=== PATIENT | female | born 1955 | race Caucasian/White ===

== ENCOUNTER → 2018-01-13 09:43 | Outpatient (CLI) | payer OTHER, SELFPAY ==
[2018-01-13 11:12] LABS: Thyroid Stimulating Hormone 0.58 uIU/ml (0.358-3.740)
== END ==
PROVIDERS: Visit Provider Internal Medicine
DX: E03.9 Hypothyroidism, unspecified (principal)
CPT/HCPCS: 36415; 84443

== ENCOUNTER → 2021-06-19 11:22 | Outpatient (CLI) | payer MEDICARE, OTHER, SELFPAY ==
--- NOTE | 2021-06-19 11:35 | XR_ITS ---
PROCEDURE: XR FOOT LT MIN 3V CLINICAL INDICATION: LT FOOT PAIN COMPARISON: No exams were available for comparison FINDINGS: There is a healing fracture involving the midshaft of the proximal phalanx of 4th toe with callus formation noted. There is good alignment. The joint spaces are well-preserved. No significant degenerative/arthritic changes. No erosive changes evident. Other findings:None. IMPRESSION: Healing fracture of the proximal phalanx of the 4th toe Dictated by: Shad Tafoya MD 06/19/2021 12:13 Shad Tafoya MD in [place] 06/19/2021 12:13
--- NOTE | 2021-06-19 11:35 | XR_ITS ---
PROCEDURE: XR CERVICAL SPINE 5V CLINICAL INDICATION: R NECK PAIN COMPARISON: No exams were available for comparison FINDINGS: Normal alignment. Degenerative disc disease C5-C6 and C6-C7. No fracture or dislocation. Mild foraminal narrowing is present on the right at C5-C6 and C6-C7 and on the left at C5-C6 and C6-C7. Facet hypertrophic changes are present at C4-C5 and C6. No evidence of cervical rib. No lytic or blastic change. Other findings:None. IMPRESSION: Degenerative changes as described above Dictated by: Shad Tafoya MD 06/19/2021 12:08 Shad Tafoya MD in OV 06/19/2021 12:08
--- NOTE | 2021-06-19 11:35 | XR_ITS ---
PROCEDURE: XR ANKLE LT MIN 3V CLINICAL INDICATION: LT ANKLE PAIN/SWELLING COMPARISON: No exams were available for comparison FINDINGS: No fracture or dislocation. No lytic or blastic change. There is normal mineralization. The joint spaces are well-preserved. No significant degenerative/arthritic changes. No erosive changes evident. Other findings:None. IMPRESSION: No acute findings. Dictated by: Shad Tafoya MD 06/19/2021 12:13 Shad Tafoya MD in [facility] 06/19/2021 12:13
== END ==
PROVIDERS: PCP Internal Medicine; Visit Provider Internal Medicine
DX: M54.2 Cervicalgia (principal); M25.572 Pain in left ankle and joints of left foot; M79.672 Pain in left foot
CPT/HCPCS: 72050; 73610; 73630

== ENCOUNTER → 2021-07-12 13:28 | Outpatient (CLI) | payer MEDICARE, OTHER, SELFPAY ==
--- NOTE | 2021-07-12 13:31 | MR_ITS ---
PROCEDURE INFORMATION: Exam: MR Head Without Contrast Exam date and time: 07/12/2021 1:31 PM Age: 66 years old Clinical indication: Pain; Headache; Additional info: Right sided neck pain and headaches. HX breast cancer been in remission since 2005. RT sided neck pain and headache. V7dlkkg. Dizziness. No prior. TECHNIQUE: Imaging protocol: MR of the head without contrast. COMPARISON: CR XR CERVICAL SPINE 5V 06/19/2021 11:38 AM FINDINGS: Brain: There is a oval dural-based isointense mass in the anterior right middle cranial fossa measuring 2.6 x 1.2 x 2.2 cm. The mass demonstrates mild mass effect on the right anterior temporal lobe. There is no midline shift. Scattered punctate T2 hyperintense white matter foci typical of chronic white matter microvascular disease. No significant cerebral volume loss. No acute infarction. Cerebral ventricles: Normal. No ventriculomegaly. Bones/joints: Unremarkable. Paranasal sinuses: Normal as visualized. No acute sinusitis. Mastoid air cells: Normal as visualized. No mastoid effusion. Soft tissues: Unremarkable. IMPRESSION: 1. Dural-based extra-axial mass in the right middle cranial fossa typical of a meningioma. Mild mass effect on the right anterior temporal lobe without parenchymal changes or midline shift. 2. No other acute findings. No other mass or infarction.
== END ==
PROVIDERS: PCP Internal Medicine; Visit Provider Internal Medicine
DX: M54.2 Cervicalgia (principal); R51.9 Headache, unspecified
CPT/HCPCS: 70551

== ENCOUNTER → 2021-09-23 15:16 | Outpatient (CLI) | payer MEDICARE, OTHER, SELFPAY | PROVIDERS: PCP Internal Medicine; Visit Provider Internal Medicine | DX: Z20.822 Contact with and (suspected) exposure to COVID-19 (principal) | CPT/HCPCS: C9803; U0003; U0005 ==

== ENCOUNTER → 2022-08-13 12:43 | Outpatient (CLI) | payer MEDICARE, OTHER, SELFPAY ==
[2022-08-13 14:45] LABS: Chloride 101 mmol/L (98-107); Sodium 139 mmol/L (136-145)
[2022-08-13 14:46] LABS: Potassium 4.5 mmoL/L (3.5-5.1)
[2022-08-13 14:48] LABS: Alanine Aminotransferase 32 U/L (12-78); Albumin Level 4.7 g/dl (3.5-5.0); Albumin/Globulin Ratio 1.6 (1.1-1.8); Alkaline Phosphatase 105 U/L (38-126); Anion Gap 16.5 mEq/L (5-15); Aspartate Amino Transferase 35 U/L (14-36); Bilirubin,Total 0.6 mg/dl (0.2-1.3); Blood Urea Nitrogen 9 mg/dl (7-17); Carbon Dioxide 26 mmol/L (22.0-30.0); Cholesterol 214 mg/dl (140-200); Estimated Glomerular Filt Rate 122 ml/min (>60); GFR (African American) 148 ML/MIN (>60); Globulin 2.9 g/dL (1.3-3.2); Total Protein,Serum 7.6 g/dl (6.3-8.2); Triglycerides 103 mg/dl (30-150); VLDL Cholesterol 21 mg/dL (0-40)
[2022-08-13 14:49] LABS: Calcium 11.5 mg/dl (8.4-10.2); Chol/HDL Ratio 4.4 (1-3.5); Glucose 107 mg/dl (74-100); HDL Cholesterol 49 mg/dl (40-60)
[2022-08-13 15:00] LABS: Direct LDL Cholesterol 127.33 mg/dL (100-129)
[2022-08-13 15:17] LABS: Thyroid Stimulating Hormone 4.64 uIU/mL (0.465-4.68)
[2022-08-13 15:41] LABS: Basophils # 0.1 K/mm3 (0-0.2); Basophils % 1.2 % (0.1-2.0); Eosinophils # 0.2 K/mm3 (0.0-0.4); Eosinophils % 2.2 % (0.1-12.0); Hematocrit 45.3 % (37.0-47.0); Hemoglobin 14.7 g/dL (12.2-16.2); Lymphocytes # 2.7 K/mm3 (0.7-4.5); Lymphocytes % 30.2 % (10-50); Mean Corpuscular HGB Conc 32.5 g/dL (31.8-35.4); Mean Corpuscular Hemoglobin 28.9 pg (27.0-31.2); Mean Corpuscular Volume 89.1 fl (81-99); Monocytes # 0.5 K/mm3 (0.1-1.0); Monocytes % 5.2 % (1.7-9.3); Neutrophils # 5.5 K/mm3 (1.8-7.8); Neutrophils % 61.3 % (37.0-80.0); Platelet Count 347 K/mm3 (142-424); Red Blood Count 5.09 M/mm3 (4.20-5.40); Red Cell Distribution Width 13.3 % (11.5-17.5)
== END ==
PROVIDERS: PCP Internal Medicine; Visit Provider Internal Medicine
DX: E03.9 Hypothyroidism, unspecified (principal); E78.5 Hyperlipidemia, unspecified; K21.9 Gastro-esophageal reflux disease without esophagitis; Z85.3 Personal history of malignant neoplasm of breast
CPT/HCPCS: 80053; 80061; 84443; 85025

== ENCOUNTER → 2022-08-26 08:00 | Outpatient (CLI) | payer MEDICARE, OTHER, SELFPAY ==
[2022-08-26 09:25] LABS: Chloride 100 mmol/L (98-107); Potassium 4.8 mmoL/L (3.5-5.1); Sodium 137 mmol/L (136-145)
[2022-08-26 09:28] LABS: Blood Urea Nitrogen 12 mg/dl (7-17); Estimated Glomerular Filt Rate 122 ml/min (>60); GFR (African American) 148 ML/MIN (>60)
[2022-08-26 09:29] LABS: Calcium 11.2 mg/dl (8.4-10.2); Glucose 138 mg/dl (74-100)
[2022-08-26 14:53] LABS: Anion Gap 15.8 mEq/L (5-15); Carbon Dioxide 26 mmol/L (22.0-30.0)
== END ==
PROVIDERS: PCP Internal Medicine; Visit Provider Internal Medicine
DX: E87.5 Hyperkalemia (principal)
CPT/HCPCS: 36415; 80048

== ENCOUNTER → 2022-09-05 11:39 | Outpatient (CLI) | payer MEDICARE, OTHER, SELFPAY ==
[2022-09-05 13:36] LABS: Phosphorous 3.1 mg/dl (2.5-4.5)
[2022-09-05 13:48] LABS: Intact Parathyroid Hormone 149.2 pg/mL (7.5-53.5)
== END ==
PROVIDERS: PCP Internal Medicine; Visit Provider Internal Medicine
DX: E83.51 Hypocalcemia (principal); Z85.3 Personal history of malignant neoplasm of breast
CPT/HCPCS: 36415; 82306; 83970; 84100

== ENCOUNTER → 2022-11-27 08:03 | Outpatient (CLI) | payer MEDICARE, OTHER, SELFPAY ==
[2022-11-27 09:15] LABS: Calcium 10.3 mg/dl (8.4-10.2); Phosphorous 3.5 mg/dl (2.5-4.5)
[2022-11-27 09:30] LABS: Intact Parathyroid Hormone 121.7 pg/mL (7.5-53.5)
== END ==
PROVIDERS: PCP Internal Medicine; Visit Provider Internal Medicine
DX: E21.3 Hyperparathyroidism, unspecified (principal); E55.9 Vitamin D deficiency, unspecified
CPT/HCPCS: 36415; 82306; 82310; 83970; 84100

== ENCOUNTER → 2022-12-04 09:11 | Outpatient (CLI) | payer MEDICARE, OTHER, SELFPAY ==
--- NOTE | 2022-12-04 09:15 | XR_ITS ---
FINAL REPORT TECHNIQUE: Bone densitometry calculations of the lumbar spine and right hip were obtained. CLINICAL HISTORY: .post menopausal FINDINGS: DEXA BONE DENSITY AXIAL SKELETON Using L1-4, the bone mineral density of the spine is a 0.836 g/cm2, corresponding to T-score of -1.9 with a Z-score of 0.1. Using the right hip, the bone mineral density of the femoral neck is 0.645 g/cm2, corresponding to a T-score of -1.8 with a Z-score of -0.1. NOTE: T-score: Standard deviation compared with peak bone mass of young adult mean. *Following the recommendations of the International Society of Bone densitometry, classification of hip BMD is based on the lower of two T-scores; total hip or femoral neck. IMPRESSION: Diminished bone mineral density of the lumbar spine and left hip consistent with osteopenia. FRAX 10 year fracture risk is 1.7% for a hip fracture and 10% for a major osteoporotic fracture. Reviewed, Interpreted and Dictated by Margareth Gaines MD Transcribed by Olamide Little Authenticated and [facility]
== END ==
PROVIDERS: PCP Internal Medicine; Visit Provider Internal Medicine
DX: M81.0 Age-related osteoporosis without current pathological fracture (principal)
CPT/HCPCS: 77080

== ENCOUNTER → 2023-05-12 08:05 | Outpatient (CLI) | payer MEDICARE, OTHER, SELFPAY ==
[2023-05-12 08:24] LABS: Basophils # 0.1 K/mm3 (0-0.2); Eosinophils # 0.3 K/mm3 (0.0-0.4); Hematocrit 44.4 % (37.0-47.0); Hemoglobin 14.5 g/dL (12.2-16.2); Lymphocytes # 2.6 K/mm3 (0.7-4.5); Lymphocytes % 31.8 % (10-50); Mean Corpuscular HGB Conc 32.7 g/dL (31.8-35.4); Mean Corpuscular Hemoglobin 28.1 pg (27.0-31.2); Mean Corpuscular Volume 85.9 fl (81-99); Mean Platelet Volume 8.1 fl (7.4-10.4); Monocytes # 0.4 K/mm3 (0.1-1.0); Monocytes % 5.2 % (1.7-9.3); Neutrophils # 4.8 K/mm3 (1.8-7.8); Platelet Count 315 K/mm3 (142-424); Red Blood Count 5.16 M/mm3 (4.20-5.40); Red Cell Distribution Width 13.5 % (11.5-17.5); White Blood Count 8.2 K/mm3 (4.8-10.8)
[2023-05-12 09:54] LABS: Alanine Aminotransferase 36 U/L (12-78); Albumin Level 4.5 g/dl (3.5-5.0); Albumin/Globulin Ratio 1.5 (1.1-1.8); Alkaline Phosphatase 91 U/L (38-126); Anion Gap 13.7 mEq/L (5-15); Aspartate Amino Transferase 32 U/L (14-36); Bilirubin,Total 0.6 mg/dl (0.2-1.3); Blood Urea Nitrogen 11 mg/dl (7-17); Calcium 10.7 mg/dl (8.4-10.2); Carbon Dioxide 26 mmol/L (22.0-30.0); Chloride 105 mmol/L (98-107); Chol/HDL Ratio 4.1 (1-3.5); Cholesterol 198 mg/dl (140-200); Estimated Glomerular Filt Rate 99 ml/min (>60); GFR (African American) 120 ML/MIN (>60); Globulin 3.1 g/dL (1.3-3.2); Glucose 142 mg/dl (74-100); HDL Cholesterol 48 mg/dl (40-60); Potassium 4.7 mmoL/L (3.5-5.1); Sodium 140 mmol/L (136-145); Total Protein,Serum 7.6 g/dl (6.3-8.2); Triglycerides 117 mg/dl (30-150); VLDL Cholesterol 23 mg/dL (0-40)
[2023-05-12 10:05] LABS: Direct LDL Cholesterol 112.37 mg/dL (100-129); Intact Parathyroid Hormone 72.9 pg/mL (7.5-53.5)
[2023-05-12 10:24] LABS: Thyroid Stimulating Hormone 3.35 uIU/mL (0.465-4.68)
== END ==
PROVIDERS: PCP Internal Medicine; Visit Provider Internal Medicine
DX: E03.9 Hypothyroidism, unspecified (principal); E55.9 Vitamin D deficiency, unspecified; M85.89 Other specified disorders of bone density and structure, multiple sites
CPT/HCPCS: 36415; 80053; 80061; 82306; 83970; 84443; 85025

== ENCOUNTER → 2023-08-24 08:18 | Outpatient (CLI) | payer MEDICARE, OTHER, SELFPAY ==
[2023-08-24 14:21] LABS: Collection Time,Urine 24 hours; Total Volume,Urine 1100 mL (250-2400)
[2023-08-24 15:20] LABS: Creatinine 24 Hour,Urine 1287 mg/24hr (630-2500)
[2023-08-24 15:27] LABS: Creatinine,Urine Random 117 mg/dL (Not Estab.)
[2023-08-25 11:20] LABS: Calcium, Urine 39.3 mg/dL (Not Estab.); Calcium, Urine 24hr 452 mg/24 hr (0-320)
== END ==
PROVIDERS: PCP Internal Medicine; Visit Provider Nurse Practitioner Family
DX: E21.0 Primary hyperparathyroidism (principal)
CPT/HCPCS: 82340; 82570

== ENCOUNTER 2023-12-24 08:09 | Outpatient (CLI) | payer MEDICARE, OTHER, SELFPAY ==
[2023-12-24 09:10] LABS: Anion Gap 13.6 mEq/L (5-15); Blood Urea Nitrogen 12 mg/dl (7-17); Calcium 10.6 mg/dl (8.4-10.2); Carbon Dioxide 26 mmol/L (22.0-30.0); Chloride 103 mmol/L (98-107); Estimated Glomerular Filt Rate 99 ml/min (>60); GFR (African American) 120 ML/MIN (>60); Glucose 153 mg/dl (74-100); Potassium 4.6 mmoL/L (3.5-5.1); Sodium 138 mmol/L (136-145)
[2023-12-24 09:21] LABS: Intact Parathyroid Hormone 149.6 pg/mL (7.5-53.5)
[2023-12-24 09:27] LABS: 25-OH Vitamin D, Total 62.2 ng/mL (30-100)
== END 2023-12-24 23:59 ==
LOC: LAB 08:12
PROVIDERS: PCP Internal Medicine; Visit Provider Nurse Practitioner Family
DX: E21.0 Primary hyperparathyroidism (principal)
CPT/HCPCS: 36415; 80048; 82306; 83970

== ENCOUNTER 2024-03-04 12:18 | Outpatient (CLI) | payer MEDICARE, OTHER, SELFPAY ==
[2024-03-04 13:57] LABS: Calcium 10.5 mg/dl (8.4-10.2)
[2024-03-04 14:07] LABS: Intact Parathyroid Hormone 97.2 pg/mL (7.5-53.5)
== END 2024-03-04 23:59 | disposition home or self-care (01) ==
LOC: LAB 12:19
PROVIDERS: PCP Internal Medicine; Visit Provider Otolaryngology
DX: E21.0 Primary hyperparathyroidism (principal)
CPT/HCPCS: 36415; 82310; 83970

== ENCOUNTER 2024-04-25 09:05 | Outpatient (CLI) | payer MEDICARE, OTHER, SELFPAY ==
--- NOTE | 2024-04-25 09:06 | XR_ITS ---
FINAL REPORT CLINICAL HISTORY: POST-MENOPAUSAL COMPARISON: 12/04/2022 FINDINGS: Using L1-4, the bone mineral density of the spine is 0.782 g/cm2, corresponding to T-score of -2.4 which is consistent with osteopenia. Previously this was 0.836 with T-score of -1.9. Using the left hip, the bone mineral density of the femoral neck is 0.850 g/cm2, corresponding to a T-score of -0.8 which is within normal limits. Previously this was 0.757 with T-score of -1.5. Using the right hip, the bone mineral density of the femoral neck is 0.669 g/cm2, corresponding to a T-score of -1.6 which is consistent with osteopenia. Previously this was 0.645 with a T-score of -1.8. FRAX 10 year fracture risk is 1.5% for a hip fracture and 9.9% for a major osteoporotic fracture. NOTE: T-score: Standard deviation compared with peak bone mass of young adult mean. *Following the recommendations of the International Society of Bone densitometry, classification of hip BMD is based on the lower of two T-scores; total hip or femoral neck. IMPRESSION: Diminished bone mineral density consistent with osteopenia with some interval bone loss. Reviewed, Interpreted and Dictated by Arcadio Walker MD Transcribed by Sandee Julien Authenticated and [facility]
== END 2024-04-25 23:59 | disposition home or self-care (01) ==
LOC: RAD 09:06
PROVIDERS: PCP Internal Medicine; Visit Provider Internal Medicine
DX: Z78.0 Asymptomatic menopausal state (principal)
CPT/HCPCS: 77080

== ENCOUNTER 2024-05-02 10:23 | Emergency (ER) | payer MEDICARE, OTHER, SELFPAY ==
--- NOTE | 2024-05-02 10:28 | ECG_ITS ---
APPROVED REPORT Exam: Resting ECG HR:73 bpm ECG Measurements Heart Rate 73 AXES IA 170 P 59 QRSd 86 QRS 26 QT 362 T 68 QTc 387 Conclusion SINUS RHYTHM WITH OCCASIONAL VENTRICULAR PREMATURE COMPLEXES BORDERLINE ECG Electronically signed by : JERRICA HESS, 05/03/2024 07:16:24
[2024-05-02 10:29] VITALS: BP 145/78; PULSE 81; O2SAT 98
[2024-05-02 10:31] VITALS: BP 145/78; PULSE 74; RESP 20; TEMP 36.6; O2SAT 99; BMI 29.7
--- NOTE | 2024-05-02 10:53 | XR_ITS ---
FINAL REPORT TECHNIQUE: Single view chest CLINICAL HISTORY: palpitations FINDINGS: A single view of the chest was obtained. The heart and mediastinum are within normal limits. The lungs are clear. There is no pneumothorax. Osseous structures are unremarkable. IMPRESSION: No acute cardiopulmonary process. Reviewed, Interpreted and Dictated by Margareth Gaines MD Transcribed by Joan Alston Authenticated and [facility]
--- NOTE | 2024-05-02 10:53 | HMH.EDGENADL ---
Discharge Plan Disposition Patient Disposition: Home, Self-Care Chief Complaint: Arrhythmia/Palpitations Referrals Follow up/Referrals: Nito Lr MD [Primary Care Provider] - See instructions Activity Restrictions/Add. Instructions Additional Instructions/Restrictions: Follow-up with your tubular stock glass bulb machine former regarding this visit to the emergency department. Parathyroid hormone today was elevated 92.5 with upper limit of normal being 53.5. Calcium 10.7. Call your family doctor to establish care for this visit to the emergency department and schedule follow-up within 48 hours to ensure improvement. If you have any worsening of your condition or any other concerning signs or symptoms, return to the emergency department or your primary care doctor for further evaluation. Clinical Impressions Clinical Impression: Palpitations, Hyperparathyroidism, Hypercalcemia Print Language Print Language: Ukrainian Discharge ED Provider: Adolfo Deluca General Adult HPI General Chief complaint: Arrhythmia/Palpitations Stated complaint: fluttering in chest poss high bp N/V BELTRÁN Time Seen by Provider: 05/02/24 10:38 Mode of Arrival: Ambulatory Source of Information: Patient Limitations: No Limitations Description of Symptoms (Recalled from ER Triage Doc. by RN): pt to ed c/o chest fluttering. pt states this has been ongoing for several days. pt denies chest pain or discomfort. History of Present Illness HPI narrative: Please note that above description of symptoms, in this electronic medical record under categorization of recalled from ER triage doctor by RN are reflective of an initial nursing assessment, however, is not reflective of my full history and physical exam that was personally taken and clarified. Consequentially, this preceding description of symptoms, which may include the patient's categorized chief complaint in the EMR, do not reflect my personal clinical impression, and the ultimate description of history of present illness and patient stated complaints should be deferred to this section of the note. Unless stated otherwise or congruent with this section of the note, additional signs, symptoms, or incongruence should be interpreted as inaccurate with my clinical impression. Related Data Allergies Allergy/AdvReac Type Severity Reaction Status Date / Time No Known Allergies Allergy Unverified 09/22/17 14:31 [facility] Disclaimer: The information contained in this section may have been updated after the patient was seen, as this information can be updated by other users. Social History Smoking Status: Never smoker alcohol intake: never current occupational status: retired Travel in the last 8 weeks: None ROS Obtained: Yes All systems reviewed & no additional complaints except as documented Physical Exam General General appearance: alert and anxious Head Head exam: atraumatic and normocephalic Eye Eye exam: Present normal appearance, PERRL and EOMI Neck Neck exam: Present normal inspection, full ROM and trachea midline Respiratory Respiratory exam: Present normal lung sounds bilaterally; Absent respiratory distress, wheezes, stridor, accessory muscle use or prolonged expiratory phase Cardiovascular Cardiovascular exam: Present regular rate, normal rhythm (Intermittent PVCs) and other (Pulses equal symmetric in upper and lower extremities) Abdominal Exam Abdominal exam: Present soft; Absent distention, tenderness or pulsatile mass Extremities Exam Extremities exam: Absent edema Neurological Exam Neurological exam: Present alert, oriented X3 and CN II-XII intact; Absent motor sensory deficit Skin Skin exam: Present warm and dry; Absent diaphoresis or erythema Medical Decision Making Medical Records Medical records reviewed: Yes I reviewed the patient's medical records. Issa Inquiry Pt receiving controlled substance: No Issa was queried for this patient: No Vital Signs: 05/02/24 10:29 05/02/24 10:31 05/02/24 11:00 Temperature 97.9 F Temperature Source Oral Pulse Rate 81 76 Pulse Rate [Left Radial] 74 Respiratory Rate 20 13 Blood Pressure 145/78 H 152/82 H Blood Pressure [Right Arm] 145/78 H Blood Pressure Mean [Right Arm] 100 02 Sat by Pulse Oximetry 98 99 96 Oxygen Delivery Method Room Air Room Air Room Air 05/02/24 11:30 Temperature Temperature Source Pulse Rate 82 Pulse Rate [Left Radial] Respiratory Rate 13 Blood Pressure 161/86 H Blood Pressure [Right Arm] Blood Pressure Mean [Right Arm] 02 Sat by Pulse Oximetry 96 Oxygen Delivery Method Room Air Lab Data Lab Results 05/02/24 10:35: WBC 9.5, RBC 4.79, Hgb 14.2, Hct 43.6, MCV 91.1, MCH 29.7, MCHC 32.6, RDW 13.7, Plt Count 315, MPV 8.2, Neut % (Auto) 65.5, Lymph % (Auto) 26.9, Vance % (Auto) 3.9, Eos % (Auto) 2.8, Baso % (Auto) 0.9, Neut # (Auto) 6.2, Lymph # (Auto) 2.6, Vance # (Auto) 0.4, Eos # (Auto) 0.3, Baso # (Auto) 0.1, Sodium 138, Potassium 3.9, Chloride 105, Carbon Dioxide 26, Anion Gap 10.9, BUN 11, Creatinine 0.50 L, Estimated Creat Clear 69, Estimated GFR 122, Est GFR ( Amer) 148, Glucose 148 H, Calcium 10.7 H, Magnesium 2.1, Total Bilirubin 0.6, AST 37 H, ALT 38, Alkaline Phosphatase 79, Troponin I < 0.01, NT-Pro-B Natriuret Pep < 20.0, Total Protein 8.0, Albumin 4.4, Globulin 3.6 H, Albumin/Globulin Ratio 1.2, PTH Intact 92.5 H 05/02/24 10:35 05/02/24 10:35 Orders (Tests/Meds): ORDERS Category Date Time Status XR chest portable Stat Exams 05/02/24 10:53 Completed Complete Blood Count Auto Diff Stat Lab 05/02/24 10:35 Completed Comprehensive Metabolic Panel Stat Lab 05/02/24 10:35 Results Intact Parathyroid Hormone Stat Lab 05/02/24 10:35 Results Magnesium Stat Lab 05/02/24 10:35 Completed NT Pro Brain Natriuretic Pep. Stat Lab 05/02/24 10:35 Completed T4 (Thyroxine) Stat Lab 05/02/24 10:35 Results TSH [Thyroid Stimulating Hormone] Stat Lab 05/02/24 10:35 Results Troponin I Q3H Lab 05/02/24 14:00 Ordered Troponin I Q3H Lab 05/02/24 17:00 Ordered Troponin I Stat Lab 05/02/24 10:35 Results Medical Decision Narrative: This is a 68-year-old female history of hyperparathyroidism status post partial parathyroidectomy presenting with palpitations. Patient states that she was told that she has a shadow of signal, concerning for parathyroid in her chest. This was months ago after receiving scan following with endocrinology and surgical oncology. Was lost to follow-up and she had been putting off appointments. States that yesterday, 05/01, started feeling intermittent palpitations. Made better with aspirin 81 mg. Into today still having palpitations. Denies any overt chest pain, radiation, shortness of breath, vomiting. No neurologic deficits. Is concerned it may be related to the adenoma, so came for further evaluation. Patient does drink coffee in the morning. History was obtained via conversation with patient. On arrival, patient hemodynamically stable, alert, oriented x4, appropriate, GCS 15, moving all extremities spontaneously, pupils equal and reactive to light. Full physical exam performed and significant for anxious appearing female who is in no acute distress. Normotensive, nontachycardic, speaking full sentences. Lungs are clear to auscultation anterior and posterior bilaterally. Cardiac exam with no murmurs, gallops, or rubs, normal S1-S2, normal and symmetric pulses in upper and lower extremities. No evidence of stridor or bruit in the neck. Differential includes PVC, arrhythmia, metabolic abnormality, endocrinologic abnormality, ACS, AK, among others. Patient placed on continuous cardiac monitoring and continuous pulse ox with initial blood pressure 145/70, heart rate 74, saturation 99% on room air. Independent interpretation of EKG shows sinus rhythm 73 beats a minute. No ischemic change. No PVCs captured on this, but captured on monitor during encounter with patient. NM 170, QRS 86, QTc 387, axis normal. Independent interpretation of workup demonstrates nonactionable CBC or chemistry. LFTs nonactionable. Magnesium normal, troponin negative, BNP negative. Patient calcium is slightly elevated at 10.7, this is chronic for patient. Her PTH was elevated today at 92.5, which is to be about her baseline as well. Intermittent interpretation of imaging demonstrates normal chest x-ray without acute abnormality in the heart or lungs. See radiology read for full review of final results. Given patient's history, hyperparathyroidism, hypercalcemia, I feel this is likely arrhythmia in the setting of hypercalcemia. Recommended she follow-up with her tubular stock glass bulb machine former, she voiced understanding. Because patient at baseline without signs or symptoms of clinical decompensation, deemed appropriate for discharge. Results were relayed to patient who voiced understanding and were agreeable to outpatient management and follow up. I discussed my clinical impression with patient and answered all questions. At this time, the evidence for any other entities in the differential is insufficient to warrant any further testing or ED observation. This was explained as well. Advisory was given that persistent or worsening symptoms require further evaluation. I confirmed the understanding of this discussion. Electromechanical Assembler disclaimer Much of this encounter note is an electronic senior tax specialist spoken language to printed text. Electronic senior tax specialist of the spoken language may permit errors. Although I have reviewed the note, some errors may still exist. Critical Care Critical Care Time Critical Care Time: No
[2024-05-02 11:00] VITALS: BP 152/82; PULSE 76; RESP 13; O2SAT 96
[2024-05-02 11:03] LABS: Basophils # 0.1 K/mm3 (0-0.2); Basophils % 0.9 % (0.1-2.0); Eosinophils # 0.3 K/mm3 (0.0-0.4); Eosinophils % 2.8 % (0.1-12.0); Hematocrit 43.6 % (37.0-47.0); Hemoglobin 14.2 g/dL (12.2-16.2); Lymphocytes # 2.6 K/mm3 (0.7-4.5); Lymphocytes % 26.9 % (10-50); Mean Corpuscular HGB Conc 32.6 g/dL (31.8-35.4); Mean Corpuscular Hemoglobin 29.7 pg (27.0-31.2); Mean Corpuscular Volume 91.1 fl (81-99); Mean Platelet Volume 8.2 fl (7.4-10.4); Monocytes # 0.4 K/mm3 (0.1-1.0); Monocytes % 3.9 % (1.7-9.3); Neutrophils # 6.2 K/mm3 (1.8-7.8); Neutrophils % 65.5 % (37.0-80.0); Platelet Count 315 K/mm3 (142-424); Red Blood Count 4.79 M/mm3 (4.20-5.40); Red Cell Distribution Width 13.7 % (11.5-17.5); White Blood Count 9.5 K/mm3 (4.8-10.8)
[2024-05-02 11:23] LABS: Alanine Aminotransferase 38 U/L (12-78); Albumin Level 4.4 g/dl (3.5-5.0); Albumin/Globulin Ratio 1.2 (1.1-1.8); Alkaline Phosphatase 79 U/L (38-126); Anion Gap 10.9 mEq/L (5-15); Aspartate Amino Transferase 37 U/L (14-36); Bilirubin,Total 0.6 mg/dl (0.2-1.3); Blood Urea Nitrogen 11 mg/dl (7-17); Calcium 10.7 mg/dl (8.4-10.2); Carbon Dioxide 26 mmol/L (22.0-30.0); Chloride 105 mmol/L (98-107); Creatinine Clearance Estimated 69 mL/min (50-200); Estimated Glomerular Filt Rate 122 ml/min (>60); GFR (African American) 148 ML/MIN (>60); Globulin 3.6 g/dL (1.3-3.2); Glucose 148 mg/dl (74-100); Magnesium 2.1 mg/dl (1.6-2.3); Potassium 3.9 mmoL/L (3.5-5.1); Sodium 138 mmol/L (136-145)
[2024-05-02 11:30] VITALS: BP 161/86; PULSE 82; RESP 13; O2SAT 96
[2024-05-02 11:34] LABS: NT Pro Brain Natriuretic Pep. < 20.0 pg/mL (0-125)
[2024-05-02 11:36] LABS: Intact Parathyroid Hormone 92.5 pg/mL (7.5-53.5)
[2024-05-02 11:37] LABS: Troponin I < 0.01 ng/ml (0.00-0.034)
[2024-05-02 11:41] LABS: T4 (Thyroxine) 13.8 ug/dl (5.53-11.0)
[2024-05-02 11:54] LABS: Thyroid Stimulating Hormone 3.43 uIU/mL (0.465-4.68)
[2024-05-02] MEDS: ONDANSETRON 4MG/2ML VIAL 4 MG IV (12:09)
[2024-05-02 12:15] VITALS: BP 148/87; PULSE 76; RESP 19; TEMP 36.7
== END 2024-05-02 12:16 | disposition home or self-care (01) ==
PROVIDERS: Emergency Provider Emergency Medicine; PCP Internal Medicine
DX: R00.2 Palpitations (principal); E21.3 Hyperparathyroidism, unspecified; I49.3 Ventricular premature depolarization
CPT/HCPCS: 71045; 80053; 83735; 83880; 83970; 84436; 84443; 84484; 85025; 93005; 96374; 99284; J2405

== ENCOUNTER 2024-07-26 15:27 | Outpatient (CLI) | payer MEDICARE, OTHER, SELFPAY ==
[2024-07-26 14:25] LABS: Alanine Aminotransferase 37 U/L (12-78); Albumin Level 4.2 g/dl (3.5-5.0); Albumin/Globulin Ratio 1.5 (1.1-1.8); Alkaline Phosphatase 69 U/L (38-126); Anion Gap 12.4 mEq/L (5-15); Aspartate Amino Transferase 32 U/L (14-36); Bilirubin,Total 0.6 mg/dl (0.2-1.3); Blood Urea Nitrogen 13 mg/dl (7-17); Calcium 10.5 mg/dl (8.4-10.2); Carbon Dioxide 27 mmol/L (22.0-30.0); Chloride 103 mmol/L (98-107); Chol/HDL Ratio 4.1 (1-3.5); Cholesterol 199 mg/dl (140-200); Estimated Glomerular Filt Rate 122 ml/min (>60); GFR (African American) 147 ML/MIN (>60); Globulin 2.8 g/dL (1.3-3.2); Glucose 138 mg/dl (74-100); HDL Cholesterol 49 mg/dl (40-60); Potassium 4.4 mmoL/L (3.5-5.1); Sodium 138 mmol/L (136-145); Triglycerides 99 mg/dl (30-150); VLDL Cholesterol 20 mg/dL (0-40)
[2024-07-26 14:36] LABS: Direct LDL Cholesterol 123.93 mg/dL (100-129)
[2024-07-26 14:53] LABS: Thyroid Stimulating Hormone 2.66 uIU/mL (0.465-4.68)
[2024-07-26 16:20] LABS: Hemoglobin A1C 6.7 % (4.0-6.0)
== END 2024-07-26 23:59 | disposition home or self-care (01) ==
LOC: LAB.DROPOF 15:27
PROVIDERS: PCP Internal Medicine; Visit Provider Internal Medicine
DX: E83.52 Hypercalcemia (principal); E78.5 Hyperlipidemia, unspecified; R73.02 Impaired glucose tolerance (oral); E03.9 Hypothyroidism, unspecified
CPT/HCPCS: 80053; 80061; 83036; 84443

== ENCOUNTER 2025-01-05 10:00 | Outpatient (CLI) | payer MEDICARE, OTHER, SELFPAY ==
[2025-01-05 12:15] LABS: Hemoglobin A1C 6.6 % (4.0-6.0)
[2025-01-05 12:32] LABS: Alanine Aminotransferase 41 U/L (12-78); Albumin Level 4.5 g/dl (3.5-5.0); Albumin/Globulin Ratio 1.4 (1.1-1.8); Alkaline Phosphatase 88 U/L (38-126); Anion Gap 16.5 mEq/L (5-15); Aspartate Amino Transferase 36 U/L (14-36); Bilirubin,Total 0.6 mg/dl (0.2-1.3); Blood Urea Nitrogen 8 mg/dl (7-17); Calcium 10.8 mg/dl (8.4-10.2); Carbon Dioxide 25 mmol/L (22.0-30.0); Chloride 102 mmol/L (98-107); Chol/HDL Ratio 3.5 (1-3.5); Cholesterol 183 mg/dl (140-200); Estimated Glomerular Filt Rate 122 ml/min (>60); GFR (African American) 147 ML/MIN (>60); Globulin 3.2 g/dL (1.3-3.2); Glucose 130 mg/dl (74-100); HDL Cholesterol 52 mg/dl (40-60); Potassium 4.5 mmoL/L (3.5-5.1); Sodium 139 mmol/L (136-145); Total Protein,Serum 7.7 g/dl (6.3-8.2); Triglycerides 98 mg/dl (30-150); VLDL Cholesterol 20 mg/dL (0-40)
[2025-01-05 12:42] LABS: Direct LDL Cholesterol 124.41 mg/dL (100-129)
[2025-01-05 12:43] LABS: Intact Parathyroid Hormone 78.3 pg/mL (7.5-53.5)
[2025-01-05 13:01] LABS: Thyroid Stimulating Hormone 2.98 uIU/mL (0.465-4.68)
== END 2025-01-05 23:59 | disposition home or self-care (01) ==
LOC: LAB.DROPOF 01-06 10:08
PROVIDERS: PCP Internal Medicine; Visit Provider Internal Medicine
DX: E78.5 Hyperlipidemia, unspecified (principal); R73.02 Impaired glucose tolerance (oral); E21.3 Hyperparathyroidism, unspecified; E03.9 Hypothyroidism, unspecified
CPT/HCPCS: 80053; 80061; 83036; 83970; 84443

== ENCOUNTER 2025-04-04 15:25 | Outpatient (CLI) | payer MEDICARE, OTHER, SELFPAY ==
[2025-04-04 15:21] LABS: Albumin Level 4.6 g/dl (3.5-5.0); Chloride 98 mmol/L (98-107)
[2025-04-04 15:22] LABS: Potassium 4.8 mmoL/L (3.5-5.1); Sodium 138 mmol/L (136-145)
[2025-04-04 15:24] LABS: Alanine Aminotransferase 33 U/L (12-78); Albumin/Globulin Ratio 1.5 (1.1-1.8); Amylase 61 U/L (30-110); Anion Gap 16.8 mEq/L (5-15); Aspartate Amino Transferase 32 U/L (14-36); Blood Urea Nitrogen 9 mg/dl (7-17); Carbon Dioxide 28 mmol/L (22.0-30.0); Creatinine,Serum 0.60 mg/dl (0.52-1.04); Estimated Glomerular Filt Rate 99 ml/min (>60); GFR (African American) 119 ML/MIN (>60); Globulin 3.1 g/dL (1.3-3.2); Total Protein,Serum 7.7 g/dl (6.3-8.2)
[2025-04-04 15:25] LABS: Alkaline Phosphatase 86 U/L (38-126); Bilirubin,Total 0.5 mg/dl (0.2-1.3); Calcium 10.3 mg/dl (8.4-10.2); Glucose 122 mg/dl (74-100); Lipase 186 U/L (23-300)
--- OUTSIDE RECORDS SUMMARY | 2025-04-04 15:27 | XMS_ITS | Encounter Summary ---
Author Organization Healthcare Address [address] [place] [address] Care Team Providers Care Body Piercer Name Role Phone Shannon Wiley George HINOJOSA Primary Care Provider [phone] Nito Lr MD Primary Care Provider [phone] Isiah Graff DO Unavailable [phone] Encounter Details Date Type Department Care Team (Late st Contact Info) Description 10/17/2021 Orders Only External Location [address] [place] [address] Bryon Griffith MD [address] [place], [place] [id number] Social History Tobacco Use Types Packs/Day Years Used Date Smoking Tobacco: Never Assessed Comments Unknown Sex and Gender Information Value Date Recorded Sex Assigned at Not on file Legal Sex Female 6:06 PM EDT Gender Identity Not on file Sexual Orientation Not on file documented as of this encounter Plan of Treatment Upcoming Encounters Date Type Department Care Team (Late st Contact Info) Description 04/13/2025 10:40 AM EDT Appointment [facility] [address] [facility] [place] [address] 04/13/2025 1:00 PM EDT Office Visit [facility] [address] [facility], [address]nd [place] [address] Isiah Graff, DO [address] [phone] documented as of this encounter Procedures Procedure Name Priority Date/Time Associated Diagnosis Comments MR OUTSIDE IMAGES 10/17/2021 2:07 PM EST documented in this encounter Results * MR transfer of outside films (10/17/2021 2:07 PM EST) Anatomical Region Laterality Modality Magnetic Resonan ce 10/17/2021 2:07 PM EST Bryon Griffith MD IMG MRI PROCEDURES Final Resu lt documented in this encounter Visit Diagnoses Not on filedocumented in this encounter Care Teams Body Piercer Relationship Specialty Start Date End Date Shannon Wiley APRN [address] [place] [address] PCP - General 02/15/21 08/10/24 Nito Lr MD [address] [place] [address] [address] [place] [address] PCP - General 08/11/24 Isiah Graff DO [address] [phone] Surgeon Cardiothoracic Surgery 08/11/24 documented as of this encounter
--- OUTSIDE RECORDS SUMMARY | 2025-04-04 15:27 | XMS_ITS | Encounter Summary ---
Author Organization Healthcare Address [address] [place] [address] Care Team Providers Care Handy Man Name Role Phone SaurabhShannon APRN Primary Care Provider [phone] Nito Lr MD Primary Care Provider [phone] Isiah Graff DO Unavailable [phone] Encounter Details Date Type Department Care Team (Late st Contact Info) Description 07/10/2023 Orders Only External Location [address] [place] [phone] Provider, External Social History Tobacco Use Types Packs/Day Years [...] Info) Description 04/13/2025 10:40 AM EDT Appointment [facility] [address] [place] [address] 04/13/2025 1:00 PM EDT Office Visit [facility] [address] [facility], [address]nd [place] [phone] Isiah Graff, DO [address] [phone] documented as of this encounter Procedures Procedure Name Priority Date/Time Associated Diagnosis Comments US OUTSIDE IMAGES 07/10/2023 10:30 AM EDT documented in this encounter Results * US OUTSIDE IMAGES (07/10/2023 10:30 AM EDT) Anatomical Region Laterality Modality Ultrasound 07/10/2023 10:3 0 AM EDT us External Provider IMG US PROCEDURES Final Result documented in this encounter Visit Diagnoses Not on filedocumented in this encounter Care Teams Handy Man Relationship Specialty Start Date End Date Shannon Wiley, TRUSS MAKER [address] [place] [address] PCP - General 02/15/21 08/10/24 Nito Lr MD [address] [facility] [address] [place] [address] PCP - General 08/11/24 Isiah Graff DO [address] [address] Surgeon Cardiothoracic Surgery 08/11/24 documented as of this encounter
--- OUTSIDE RECORDS SUMMARY | 2025-04-04 15:27 | XMS_ITS | Encounter Summary ---
Author Organization Healthcare Address [address] [place] [address] Care Team Providers Care Gas Worker Name Role Phone SaurabhShannon APRN Primary Care Provider [phone] Nito Lr MD Primary Care Provider [phone] Isiah Graff DO Unavailable [phone] Encounter Details Date Type Department Care Team (Late st Contact Info) Description 07/21/2023 Orders Only External Location [address] [place] [phone] Provider, External Social History Tobacco Use Types [...] Info) Description 04/13/2025 10:40 AM EDT Appointment [facility] [address] [place] [address] 04/13/2025 1:00 PM EDT Office Visit [facility] [address] [facility], [address]nd [place] [phone] Isiah Graff, DO [address] [phone] documented as of this encounter Procedures Procedure Name Priority Date/Time Associated Diagnosis Comments NM OUTSIDE IMAGES 07/21/2023 12:41 PM EDT documented in this encounter Results * NM OUTSIDE IMAGES (07/21/2023 12:41 PM EDT) Anatomical Region Laterality Modality Nuclear Medicine 07/21/2023 12:4 1 PM EDT External Provider IMG NM PROCEDURES Final Result documented in this encounter Visit Diagnoses Not on filedocumented in this encounter Care Teams Gas Worker Relationship Specialty Start Date End Date Shannon Wiley, PICKLE SOLUTION MAKER [address] [place] [address] PCP - General 02/15/21 08/10/24 Nito Lr MD [address] [facility] [address] [place] [address] PCP - General 08/11/24 Isiah Graff DO [address] [phone] Surgeon Cardiothoracic Surgery 08/11/24 documented as of this encounter
--- OUTSIDE RECORDS SUMMARY | 2025-04-04 15:27 | XMS_ITS | Encounter Summary ---
Author Organization Healthcare Address [address] [place] [address] Care Team Providers Care Medical Record Librarians Teacher Name Role Phone Shannon Wiley George HINOJOSA Primary Care Provider [phone] Nito Lr MD Primary Care Provider [phone] Isiah Graff DO Unavailable [phone] Encounter Details Date Type Department Care Team (Late st Contact Info) Description 06/19/2023 Orders Only External Location [address] [place] [phone] Bryon Griffith MD [address] [place], [place] [phone] Social History Tobacco Use Types Packs/Day Years [...] Info) Description 04/13/2025 10:40 AM EDT Appointment [facility] [address] [facility] [place] [address] 04/13/2025 1:00 PM EDT Office Visit Pav [facility] [address] [facility], [address] [place] [address] Isiah Graff, DO [address] [phone] documented as of this encounter Procedures Procedure Name Priority Date/Time Associated Diagnosis Comments MR OUTSIDE IMAGES 06/19/2023 11:44 AM EDT documented in this encounter Results * MR transfer of outside films (06/19/2023 11:44 AM EDT) Anatomical Region Laterality Modality Magnetic Resonan ce 06/19/2023 11:4 4 AM EDT us Bryon Griffith MD IMG MRI PROCEDURES Final Resu lt documented in this encounter Visit Diagnoses Not on filedocumented in this encounter Care Teams Medical Record Librarians Teacher Relationship Specialty Start Date End Date Shannon Wiley APRN [address] [place] [address] PCP - General 02/15/21 08/10/24 Nito Lr MD [facility] [address] [place] [address] PCP - General 08/11/24 Isiah Graff DO [address] [address] Surgeon Cardiothoracic Surgery 08/11/24 documented as of this encounter
--- OUTSIDE RECORDS SUMMARY | 2025-04-04 15:27 | XMS_ITS | Encounter Summary ---
Author Organization [facility] Address [address] [place] [address] Care Team Providers Care Chain Repairer Name Role Phone Nito Lr MD Primary Care Provider [phone] Isiah Graff DO Unavailable [phone] Encounter Details Date Type Department Care Team ([facility] st Contact Info) Description 03/24/2025 Telephone Pav [facility] Head[facility] Neck & Respiratory [address] [place] [address] Isiah Graff, DO [address] [place] [address] Social History Tobacco Use Types Packs/Day Years Used Date Smoking Tobacco: Never Smokeless Tobacco: Never Alcohol Use Standard Drinks/Week Comments Never 0 (1 standard drink = 0.6 oz pur e alcohol) Humiliation, Afraid, Rape, and Kick questionnair e Answer Date Recorded Within the last year, have y ou been afraid of your partner or ex-partner? No 09/06/2024 Within the last year, have y ou been humiliated or emotionally abused in other ways by your partner or ex-partner? No Within the last year, have y ou been kicked, hit, slapped, or otherwise physically hurt by your partner or ex-partner? No 09/06/2024 Within the last year, have y ou been raped or forced to have any kind of sexual activity by your partner or ex-partner? No 09/06/2024 Hunger Vital Sign Answer Date Recorded Within the past 12 months, y ou worried that your food would run out before you got the money to buy more. Never true 09/06/20 24 Within the past 12 months, t he food you bought just didn't last and you didn't have money to get more. Never true 09/06/2024 PRAPARE - Transportation Answer Date Re corded In the past 12 months, has l ack of transportation kept you from medical appointments or from getting medications? No 12/2023 In the past 12 months, has l ack of transportation kept you from meetings, work, or from getting things needed for daily living? No 09/06/2024 Housing Stability Vital Sign Answer Cesario e Recorded In the last 12 months, was t here a time when you were not able to pay the mortgage or rent on time? No 09/06/2024 Number of Times Moved in the Last Year Not on fi le 09/06/2024 At any time in the past 12 m [facility], were you homeless or living in a senior care (including now)? No 09/06/2024 Utilities Answer Date Recorded In the past 12 months has th e [employer], gas, oil, or water [email or web address] threatened to shut off services in your home? No 09/06/2024 Comments Unknown Sex and Gender Information Value Date Recorded Sex Assigned at Not on file Legal Sex Female 6:06 PM EDT Gender Identity Not on file Sexual Orientation Not on file documented as of this encounter Miscellaneous Notes * Telephone Encounter - Sayra Yao RN - 03/27/2025 3:05 PM EDT RN discussed with pt that CT chest will still be needed and informed of new date/times of appts. Ptverbalized understanding and agreeable to plan. * Telephone Encounter - Sayra Yao RN - 03/27/2025 2:[address] abdomen is not sufficient, pt will need CT chest for surveillance purposes. * Telephone Encounter - Thais Sierra - 03/24/2025 10:10 AM EDT Patient Phone Message Reason for Call: Per pt call to [facility], pt wished to rs all appts including scans, pt had CT done at [facility] on abdomen Tuesday 03/20, asking if that will meet provider needs. 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 Pt concerned about radiation with back to back scans. Best contact number and optimal time of day to reach caller: [phone], okay to leave appt information, address concerns and answers to questions in VM at this # Note: Please do not reply to this message. Follow-up communication and further actions as a result of this message need to be communicated with the patient directly, if the patient is not active onMyChart. If the patient is active on MyChart, they will receive notification of the communication/outcome via moziy. documented in this encounter Plan of Treatment Upcoming Encounters Date Type Department Care Team (Late st Contact Info) Description 04/13/2025 10:40 AM EDT Appointment [facility] [address], [address] [place] [address] 04/13/2025 1:00 PM EDT Office Visit Pav CC Head, Neck & Respiratory [address] [facility], [address]nd [place] [address] Isiah Graff D, DO [address] [address] documented as of this encounter Visit Diagnoses Not on filedocumented in this encounter Additional Health Concerns Assessment Noted Time A fall risk assessment has been complete d for the patient 08/11/2024 10:01 AM EST A Body Mass Index follow-up plan has been documented for the patient 09/22/2024 8:12 PM EST documented as of this encounter Care Teams Chain Repairer Relationship Specialty Start Date End Date Nito Lr MD [address] [facility] [address] [place] [address] PCP - General 08/11/24 Isiah Graff DO [address] [address] Surgeon Cardiothoracic Surgery 08/11/24 documented as of this encounter
--- OUTSIDE RECORDS SUMMARY | 2025-04-04 15:27 | XMS_ITS | Clinical Summary ---
Author Organization [facility] Address [address] [place] [address] Care Team Providers Care Switchboard Operator Helper Name Role Phone Nito Lr MD Primary Care Provider [phone] Isiah Graff DO Unavailable [phone] Allergies No known active allergies Medications famotidine (Pepcid) 20 MG tablet Take 1 tablet (20 mg) by mouth every night. Active levothyroxine (Synthroid, Levoxyl) 75 MCG tablet Take 1 tablet (75 mcg) by mouth 1 (one) time each day. 06/01/2024 Active cholecalciferol (Vitamin D-3) 50 MCG (1999) capsule Take 1 capsule (2,000 Units) by mouth 1 (one) time each day. Active atorvastatin (Lipitor) 20 MG tablet Take 1 tablet (20 mg) by mouth 1 (one) time each day. 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 Encounters Date Type Department Care Team Description 03/24/2025 Telephone Pav [facility] Head[facility] Neck & Respiratory [address] [place] [address] Isiah Graff, DO from Last 3 Months Family History Medical History Relation Name Comments Kidney disease Mother Arthritis Other Hyperlipidemia Other Anesthesia problems Neg Hx Malig Hyperthermia Neg Hx Relation Name Status Comments Mother Other Social History Tobacco Use Types Packs/Day Years Used Date Smoking Tobacco: Never Smokeless Tobacco: Never Tobacco Cessation:Counseling Given: No Alcohol Use Standard Drinks/Week Comments Never 0 [...] any time in the past 12 m [facility], were you homeless or living in a half-way (including now)? No 09/06/2024 Utilities Answer Date Recorded In the past 12 months has th e electric, gas, oil, or water company threatened to shut off services in your home? No 09/06/2024 Comments Unknown Sex and Gender Information Value Date Recorded Sex Assigned at Not on file Legal Sex Female 6:06 PM EDT Gender Identity Not on file Sexual Orientation Not on file Last Filed Vital Signs Vital Sign Reading Time Taken Comments Blood Pressure 154/81 09/22/2024 1:10 PM EST Pulse 78 09/22/2024 1:10 PM EST Temperature 36.8 C (98.2 F) 09/22/2024 1:10 PM EST Respiratory Rate 16 09/22/2024 1:10 PM EST Oxygen Saturation 98% 09/22/2024 1:10 PM EST Inhaled Oxygen Concentration - - Weight 83.8 kg (184 lb 11.9 oz) 09/22/2024 1:10 PM EST Height 165.1 cm (5' 5 ) 08/30/2024 1:05 PM EST Body Mass Index 30.74 08/30/2024 1:05 PM EST Plan of Treatment Upcoming Encounters Date Type Department Care Team (Late st Contact Info) Description 04/13/2025 10:40 AM EDT Appointment [facility] [address] [place] [address] 04/13/2025 1:00 PM EDT Office Visit Pav CC Head, Neck & Respiratory [address] [place] [address] Isiah Graff, DO [address] [place] [address] Health Maintenance Due Date Last Done Comments [facility]-Bone Density Scan 1953 [facility]-Depression Screening 1953 [facility]-Hepatitis C Screening 1955 [facility]-Medicare Annual Wellness (AWV) 1955 [facility]-Infant/Child/Adol SDOH Screenings 1955 [facility]-Zoster Vaccines (1 of 2) 1972 [facility]-DTaP,Tdap,and Td Vaccines (1 - Tdap) 12/09/1996 12/08/1996 CT Colonography 1998 Colonoscopy 1998 FIT-DNA 1998 FIT 1998 FOBT 1998 Sigmoidoscopy 1998 [facility]-Colorectal Cancer Screening 1998 [facility]-RSV Vaccine: 60+ Years or (1 - Risk 60-74 years 1-dose series) 2013 [id number] Vaccine (8 - Pfizer risk 2023- season) 2025 08/12/2024, 01/14/2023, 06/25/2022, Additional history exists [facility]- SDOH Screenings 03/07/2025 [facility]-Adult SDOH Screenings 03/07/2025 09/06/2024 [facility]-Influenza Vaccine Completed 07/26/2024, 023 [facility]-Pneumococcal Vaccine: 50+ Years Completed 08/19/2024 [facility]-Obesity Intervention Completed 024, 08/11/2024, 08/11/2024, Additional history exists HPV Vaccines Aged Out No longer eligi ble based on patient's age to complete this topic [facility]-HIB Vaccines Aged Out No longer e ligible based on patient's age to complete this topic [facility]-Hepatitis A Vaccines Aged Out No longer eligible based on patient's age to complete this topic [facility]-IPV Vaccines Aged Out No longer e ligible based on patient's age to complete this topic [facility]-Rotavirus Vaccines Aged Out No lo nger eligible based on patient's age to complete this topic Insurance MEDICARE [facility] [id number] Advance Directives Documents on File Type Date Recorded 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 Yes Care Teams Switchboard Operator Helper Relationship Specialty Start Date End Date Nito Lr MD [address] [place] [address] [address] [place] [address] PCP - General 08/11/24 Isiah Graff DO [address] [address] Surgeon Cardiothoracic Surgery 08/11/24
--- OUTSIDE RECORDS SUMMARY | 2025-04-04 15:27 | XMS_ITS | Encounter Summary ---
Author Organization [facility] Address [address] [place] [address] Care Team Providers Care J2Ee Engineer Name Role Phone SaurabhShannon APRN Primary Care Provider [phone] Nito Lr MD Primary Care Provider [phone] Isiah Graff DO Unavailable [phone] Encounter Details Date Type Department Care Team (Late st Contact Info) Description 07/10/2023 Orders Only External Location [address] [place] [phone] Provider, External Social History Tobacco Use Types [...] Info) Description 04/13/2025 10:40 AM EDT Appointment [facility] [address] [place] [address] 04/13/2025 1:00 PM EDT Office Visit Pav CC Head, Neck & Respiratory [address] [facility], [address] [place] [address] Isiah Graff, DO [address] [address] documented as of this encounter Procedures Procedure Name Priority Date/Time Associated Diagnosis Comments CT OUTSIDE IMAGES 07/10/2023 11:20 AM EDT documented in this encounter Results * CT OUTSIDE IMAGES (07/10/2023 11:20 AM EDT) Anatomical Region Laterality Modality Computed Tomogra phy 07/10/2023 11:2 0 AM EDT us External Provider IMG CT PROCEDURES Final Result documented in this encounter Visit Diagnoses Not on filedocumented in this encounter Care Teams J2Ee Engineer Relationship Specialty Start Date End Date Shannon Wiley, LAB TECHNOLOGIST [address] [place] [address] PCP - General 02/15/21 08/10/24 Nito Lr MD [address] [facility] [address] [place] [address] PCP - General 08/11/24 Isiah Graff DO [address] [address] Surgeon Cardiothoracic Surgery 08/11/24 documented as of this encounter
--- OUTSIDE RECORDS SUMMARY | 2025-04-04 15:27 | XMS_ITS | Continuity of Care Document ---
Author Organization [facility], [facility] Address [address] [place] [address] Care Team Providers Care Rehabilitation Aide/Scheduler Name Role Phone CATARINA FRANCIS Primary Care Provider [phone] HECTOR DASILVA General Surgeon Assessment Encounter Date Assessment Date Assessment LastModified by Organization Details LastModified Time 03/31/2025 03/31/2025 69-year-old female with a history of breast cancer presents with a renal mass found on CT of the abdomen from 03/2025. The renal mass s suspected to be benign based on imaging findings, but further evaluation by Dr. Hand is pending to confirm the nature of the lesion. The pancreatic cystic lesion, which has shown growth over time, requires further imaging to assess its nature and potential implications. She has not had an MRI of the abdomen as recommended. I have printed chest CT and abdominal CT for her to give to her PCP so more testing can be ordered if it hasn't been already. Regarding the left renal mass, I will ask Dr. Hand to review images and will contact her with esvin mccall. Plan: Follow-up with PCP for pancreatic cysts. Follow-up for renal mass TBD. [email or web address] Not available 03/31/2025 15:20:12 Plan of Treatment Reminders Order Date Submit Date Provider Last Modified By Organization Details Last Modified Time Details Appointments RECHECK 2024 01:30P M ANGEL TORRES NP Not available Not available Not available Lab urinalys is panel, auto 2024 Peyman haines [facility] Urology [facility], [address] [place], [address], 03/31/2025 10:26:07 Referral None recorded . Procedures None recorded . Surgeries None recorded . Imaging None recorded . Medication Orders None recorded . Patient TargetsNo targets recorded. Patient Instructions Encounter Date Encounter Id Patient Instructions Last Modified By Organization Details Last Modified Time 03/31/2025 [id number] - Follow up with Dr. Godfrey for further evaluation of the renal mass. - Schedule an MRI for the pancreatic cystic lesion as recommended. - Monitor calcium levels regularly and discuss any changes with your healthcare provider. - Continue regular mammograms as part of breast cancer surveillance. [email or web address] Not available 03/31/2025 10:51:06 Reason for Referral None Reported. Results Created Date Observation Date Name Description Value Unit Range Abnormal Flag Note LastModifiedBy Organization Detail LastModifiedTime 03/31/2003/31/2025 urina lysis panel , auto Unknown Analyte Clean Catch Not Available Cu/Lc Urolo [facility] [address] [place], [address], 03/31/2025 10:16:37 03/31/20 25 03/31/2025 urina lysis panel , auto Unknown Analyte Yellow Not Available [facility]rology [facility] [address] [place], [address], 03/31/2025 10:16:37 03/31/20 25 03/31/2025 urina lysis panel , auto Unknown Analyte Slight ly Cloudy Not Available Cu/Lc Urolo [facility] [address] [place], [address], 03/31/2025 10:16:37 03/31/20 25 03/31/2025 urina lysis panel , auto Unknown Analyte 1.015 Not Available Cu[facility] Urology [facility] [address] [place], [address], 03/31/2025 10:16:37 03/31/20 25 03/31/2025 urina lysis panel , auto Unknown Analyte 5.0 Not Available [facility] [address] [facility], [place], [address], 03/31/2025 10:16:37 03/31/20 25 03/31/2025 urina lysis panel , auto Unknown Analyte 500 Farzana/uL Not Available Cu/Lc Urol[facility] [address] [facility], [place], [address], 03/31/2025 10:16:37 03/31/20 25 03/31/2025 urina lysis panel , auto Unknown Analyte Negati ve Not Available [facility] Urol[facility] [address] [facility], [place], [address], 03/31/2025 10:16:37 03/31/20 25 03/31/2025 urina lysis panel , auto Unknown Analyte Negati ve Not Available Cu[facility] Urol[facility] [address] [facility], [place], [address], 03/31/2025 10:16:37 03/31/20 25 03/31/2025 urina lysis panel , auto Unknown Analyte Normal Not Available [facility] [address] [facility], [place], [address], 03/31/2025 10:16:37 03/31/20 25 03/31/2025 urina lysis panel , auto Unknown Analyte Negati ve Not Available [facility] Urol[facility] [address] [place], [address], 03/31/2025 10:16:37 03/31/20 25 03/31/2025 urina lysis panel , auto Unknown Analyte Normal Not Available [facility] [address] [place], [address], 03/31/2025 10:16:37 03/31/20 25 03/31/2025 urina lysis panel , auto Unknown Analyte Negati ve Not Available [facility] [address], [place], [address], 03/31/2025 10:16:37 03/31/20 25 03/31/2025 urina lysis panel , auto Unknown Analyte Negati ve Not Available [facility]rol[facility] [address], [place], [address], 03/31/2025 10:16:37 03/10/20 25 03/10/2025 US, abdom en, limit ed [facility] [address] [place] [address] [phone] Patimorales garcia Name: JUSTINO garcia : 953 Patim[address] t 8 Orderi ng Provid er: HECTOR DASILVA EXAM DATE: 2024 EXAM: US RIGHT UPPER QUADRA NT CLINIC AL INFORM ATION: Right upper quadra nt pain. TECHNI QUE: Multip le sonogr aphic images of the right upper quadra nt were obtain ed. COMPAR HONG: None. FINDIN GS: LIVER: Diffus e fatty metamo rphosi s of the liver. Mild dilata tion of the portal vein measur ing 1.8 cm with approp riate direct ional flow. 9 mm right hepati c lobe lesion likely small cyst. There is focal sparin g around the gallbl adder measur ing 1.8 cm. BILIAR Y SYSTEM : Gallbl adder is normal in size and wall thickn ess. No stones visual ized. No intrah epatic biliar y dilata tion. CBD measur ement = 5 mm. Normal in size. PANCRE : Well visual ized. Normal in size and echoge nicity . No obviou s focal lesion . RIGHT KIDNEY : Length = 12.4 cm. No hydron ephros is, mass or stone. A retrop eriton eal lesion is suspec farhana measur ing 4.1 cm. IMPRES JOAQUIN: 1. Possib le retrop eriton eal lesion . Recomm end CT abdome n with contra st 2. Tiny lesion in the right lobe of the liver likely simple cyst 3. Severe diffus e fatty metamo rphosi s of the liver with likely focal sparin g around the gallbl adder. This also could be assess ed furthe r with CT abdome n with contra st 4. Mild dilata tion of the portal vein Interp reted By: Jason Cruz MD Electr onical ly Signed By: Jason Cruz MD on 03/10/20 9:10 AM [facility] Radiology [facility] [address] [place] [address], [phone], 03/16/2025 20:54:19 03/20/2003/20/2025 CT, abdom en, w/ contr ast [address] [address] [phone] Patien t Name: JUSTINO HESS Patien t : 953 Patien t 8 Orderi ng Provid er: HECTOR DASILVA EXAM DATE: 2024 EXAM: CT ABDOME N WITH CONTRA ST CLINIC AL INFORM ATION: Pain TECHNI QUE: A baseli ne serum creati nine with eGFR was obtain ed prior to inject ion of contra st medium due to the patien ts risk factor s for EDIL. Calcul ated eGFR at time of exam was [address] images of the abdome n were obtain ed after inject ion of 100 mL Omnipa que 350 (1 x 100 mL bottle of [facility] [address]- 1414-9 1). None was wasted and discar ded. No oral contra st or water was admini stered to the patien t. COMPAR HONG: None. FINDIN GS ON CT ABDOME N: LOWER THORAX : Lung bases are clear. No obviou s cardia c abnorm ality. UPPER ABDOMI NAL ORGANS : Diffus e fatty metamo rphosi s of the liver is presen t. No defini te liver lesion is found. 4.4 cm mass involv ing the left kidney . While this is probab ly cystic but has has a solid compon ent measur ing 2.5 cm along the bench molder apprentice ior latera l aspect . Right kidney shows a subcen timete r simple cyst. Adrena ls unrema rkable . The spleen is normal . The pancre as has a cystic mass involv ing the tail. This measur es 1.6 cm. This may be a pseudo cyst or possib ly IPMN lesion . BOWEL AND MESENT DEMARCUS: Stomac h, small bowel and colon are normal . No mesent nereida lympha denopa thy or perito amelia free fluid. RETROP ERITON EUM: Aorta, IVC and their branch es are patent and normal . No retrop eriton eal lympha denopa thy. ABDOMI NAL WALL AND SKELET AL STRUCT URES: Normal . IMPRES JOAQUIN: 1. Indete rminat e mass along the left kidney . Neopla sm is not exclud ed 2. Fatty metamo rphosi s of the liver 3. Cystic lesion involv ing the pancre atic tail nonspe cific. Could be an IPMN lesion Interp reted By: Jason Cruz MD Electr onical ly Signed By: Jason Cruz MD on 025 10:[email or web address] Radiology [address], [address], 03/28/2025 12:04:55 Result Notes None recorded. 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 Procedures Surgical History Date Name Laterality Status Provider Name and Address Organization Details Recorded Time 03/31/20 25 Post Void Residual; Ultrasound completed María Elena Ugarte [facility] 03/31/2025 10:16:32 03/02/20 24 incision and exploration of neck completed ANCELMO LEE MD [address] [place] [address], [phone], [facility] 03/02/2024 14:46:32 Breast Surgery completed Kiera Julien [facility] 06/23/2023 11:57:34 Thyroid Surgery completed ANCELMO LEE MD [address] [place] [address], [phone], [facility] 03/02/2024 14:37:28 hysterectomy completed Kiera Wily [facility] 06/23/2023 11:58:01 Tonsillectomy completed Kiera Wily [facility] 06/23/2023 11:58:12 Imaging Results None recorded. Procedure Notes None recorded. Medical Equipment None Reported. Allergies No known drug allergies Medications Name Sig Start Date Stop Date Status Note LastModified by Organization Details LastModified Time atorvasta tin 20 mg tablet TAKE 1 TABLET BY MOUTH ONCE DAILY 02/23 completed Not Available Not Available Not Available hydrocodo ne 5 mg-acetam inophen 325 mg tablet TAKE 1 TABLET BY MOUTH EVERY 6 HOURS NEEDED 02/23 completed Not Available Not Available Not Available sulfameth oxazole 800 mg-trimet hoprim 160 mg tablet TAKE 1 TABLET BY MOUTH TWICE DAILY UNTIL GONE 06/23 completed Not Available Not Available Not Available levothyro xine 75 mcg tablet TAKE 1 TABLET BY MOUTH ONCE DAILY active Not Available Not Available No t Available levothyro xine 100 mcg tablet TAKE ONE TABLET BY MOUTH ONCE DAILY 06/23 completed Not Available Not Available Not Available famotidin e 20 mg tablet Take 1 tablet every day by oral route. active Not Available Not Available No t Available Pepcid AC 10 mg tablet Two times a day 06/23 completed Frequenc y: bid;Medi cation Descript ion: famotidi ne; Route:or al; refills: 0; Quantity :2 tablet Not Available Not Available Not Available nitrofura ntoin monohydra te/macroc rystals 100 mg capsule TAKE 1 CAPSULE BY MOUTH TWICE DAILY WITH MEALS FOR 7 DAYS 06/23 completed Not Available Not Available Not Available Calcium-V itamin D 06/23 completed Medicati on Descript ion: calcium- vitamin D; Route:or al; refills: 0 Not Available Not Available Not Available famotidin e 02/23 completed Not Available Not Available Not Available Vitamin D3 active Not Available Not Available Not Available Vitals Date Recorded Body height Body mass index (BMI) Body weight Provider Name and Address Organization Details Last Updated DateTime 03/31/2025 165.1 cm 31.5 kg/m2 15279.96 g María Elena Ugarte [facility] 03/31/2025 10:16:07 Social History Question Answer Notes LastModified by Organizat ion Details LastModified Time Tobacco Smoking Status Never [facility] 11:57:20 What Is Your Relationship Status? [email or web address] Information not available 03/31/2025 Sex: Female Functional Status Question Answer Note LastModified by Organizat ion Details LastModified Time Do you or have you ever used any other forms of tobacco or nicotine? No [email or web address] Information not available 03/31/2025 What is your level of alcohol consumption? None Information not available 06/23/2023 Are you currently employed? Yes [email or web address] Information not available 03/31/2025 What is your occupation? [employer]-27 Information not available 03/31/2025 Mental Status None recorded. Family History Relationship Description Onset Age of this Age Resolved Age Notes LastModified by Organization Details LastModified Time Mother Family history of malignant neoplasm Not available 2022 11:56:47 Mother Kidney disease [email or web address] Not available 2024 10:03:25 Father Family history of malignant neoplasm [id number] Not available 2022 11:57:04 Unspecified Relation Arthritis [email or web address] Not available 025 10:03:25 Unspecified Relation Hyperlipidem ia [email or web address] Not available 2024 10:03:25 Unspecified Relation Polyp of colon [email or web address] Not available 2024 10:03:25 Unspecified Relation Hypertensive disorder [email or web address] Not available 2024 10:03:25 Unspecified Relation Kidney disease [email or web address] Not available 2024 10:03:25 Medical History Condition Response Cancer Y Thyroid Disease N Thyroid Problems Y Gynecological History Statement/Question Response # of Pregnancies 2 # of Births 1 Could you be now? N Obstetrics History GPAL:G 0 P 0 0 0 0 Past Encounters Encounter ID Performer Location Encounter Start Date Encounter Closed Date Diagnosis/Indication Diagnosis SNOMED-CT Code Diagnosis ICD10 Code Diagnosis Note [id number] HECTOR DASILVA MD GENERAL SURGERY [address] [place] [address] 03/23/2025 13:30:49 03/27/2025 10:11:55 Left upper quadrant pain 513864733 R10.12 69-year-ol d female seen for evaluation with concern for abdominal pain. Reportedly history of cholelithi asis. Evidently this was on outside facility imaging she is uncertain from where or when. Notes more LUQ pain. Denies associatio n with foods. Will plan for RUQ US to update imaging and eval the lennie friedman. May consider CT as well given she has not LUQ pain.03/23- No significan t interval change. Ultrasound without evidence of cholelithi asis. Did question of retroperit middleton mass which was followed up with CT abdomen. Notable for concern for a left kidney lesion cystic but also solid component. Will plan to refer to urology for further evaluation . Possible IPMN 1.6 cm. Would plan for surveillan ce for now. [id number] ANGEL TORRES APRN UROLOGY [address] [place] [address] 03/31/2025 09:56:30 03/31/2025 10:54:15 Renal mass 843259408 N28.89 If the lesion is deemed benign, periodic imaging may be recommende d to monitor for any changes. Urinary incontinence 165 046808 R32 The urinary incontinen ce was acknowledg ed, but specific management strategies were not detailed during the visit. Cyst of pancreas [id number] 0 K86.2 Health Concerns Section Related Observation LastModified by Organization Detai ls LastModified Time None Recorded Concern Status LastModified by Organization Details LastModified Time None Recorded Payers Encounter Date Sequence Insurance Name Policy Number Policy Haley Covered Member ID Haley Member ID Guarantor Name 03/31/2025 1 [place]ARE[place] Justino Hess [id number] Justino Hess 03/31/2025 2 [facility] (MEDICARE SUPPLEMENT) Justino Hess [id number] Justino Hess Notes Date Note Type Note Provider Name and Address Organization Details Recorded Time 5 text/html 69-year-old female presenting with a renal mass and urinary incontinence. She has a history of breast cancer and has mammograms regularly. She has a history of thyroid disease, hyperparathyroidism and elevated calcium at 10.5. She saw Dr. Lee and an ultrasound revealed a 2.3 cm mass most consistent with a lymph node in the right thyroid bed (patient is status post thyroidectomy for benign disease). The nuclear scan revealed enhancement in the right thyroid bed as well as some enhancement in the anterior mediastinum. CT scan of the chest revealed a 2.9 cm anterior enhancing mass thought to possibly be a parathyroid adenoma, or thymoma but less likely metastatic breast disease with a history of breast cancer. She underwent surgery to remove parathyroid glands and mediastinal mass 02/2024. A follow-up chest CT showed interval increase in mediastinal mass and two cysts at the pancreatic tail. A left renal mass measuring 4.4 cm was incidentally discovered on a CT of the abdomen with contrast 03/2025 after she reported LUQ tenderness and a palpable lump in the area. CT showed an indeterminate mass along the left kidney, fatty metamorphosis of the liver and a cystic lesion involving the pancreatic tail nonspecific. She denies flank pain or hematuria. She denies a family history of kidney or bladder cancer. She has never been a smoker. ANGEL TORRES, CONCRETE PRODUCTS DISPATCHER [address] [place], [address], [place] [facility] 03/31/2025 15:20:35 OBGyn Episode No OBEpisode recorded.
--- OUTSIDE RECORDS SUMMARY | 2025-04-04 15:27 | XMS_ITS | Encounter Summary ---
Author Organization Healthcare Address [address] [place] [address] Care Team Providers Care Home Care Liaison Name Role Phone Shannon Wiley George HINOJOSA Primary Care Provider [phone] Nito Lr MD Primary Care Provider [phone] Isiah Graff DO Unavailable [phone] Encounter Details Date Type Department Care Team (Late st Contact Info) Description 06/17/2024 Orders Only External Location [address] [place] [address] Bryon Griffith MD [address] [place], [place] [id number] Social History Tobacco Use Types Packs/Day Years [...] Info) Description 04/13/2025 10:40 AM EDT Appointment [facility] [address] [place] [address] 04/13/2025 1:00 PM EDT Office Visit Pav [facility] [address] [facility], [address]nd [place] [address] Isiah Graff, DO [address] [phone] documented as of this encounter Procedures Procedure Name Priority Date/Time Associated Diagnosis Comments MR OUTSIDE IMAGES 06/17/2024 4:06 PM EDT documented in this encounter Results * MR transfer of outside films (06/17/2024 4:06 PM EDT) Anatomical Region Laterality Modality Magnetic Resonan ce 06/17/2024 4:06 PM EDT us Bryon Griffith MD IMG MRI PROCEDURES Final Resu lt documented in this encounter Visit Diagnoses Not on filedocumented in this encounter Care Teams Home Care Liaison Relationship Specialty Start Date End Date Shannon Wiley APRN [address] [place] [address] PCP - General 02/15/21 08/10/24 Nito Lr MD [facility] [place] [address] PCP - General 08/11/24 Isiah Graff DO [address] [phone] Surgeon Cardiothoracic Surgery 08/11/24 documented as of this encounter
--- OUTSIDE RECORDS SUMMARY | 2025-04-04 15:27 | XMS_ITS | Encounter Summary ---
Author Organization Healthcare Address [address] [place] [address] Care Team Providers Care Tomahawk Weapon System Operator Name Role Phone SaurabhShannon APRN Primary Care Provider [phone] Nito Lr MD Primary Care Provider [phone] Isiah Graff DO Unavailable [phone] Encounter Details Date Type Department Care Team (Late st Contact Info) Description 07/24/2023 Orders Only External Location [address] [place] [address] Provider, External Social History Tobacco Use Types [...] Info) Description 04/13/2025 10:40 AM EDT Appointment [facility] [address] [place] [address] 04/13/2025 1:00 PM EDT Office Visit Pav [facility] [address] [facility], [address] [place] [address] Iisah Graff, DO [address] [address] documented as of this encounter Procedures Procedure Name Priority Date/Time Associated Diagnosis Comments CT OUTSIDE IMAGES 07/24/2023 2:00 PM EDT documented in this encounter Results * CT OUTSIDE IMAGES (07/24/2023 2:00 PM EDT) Anatomical Region Laterality Modality Computed Tomogra phy 07/24/2023 2:00 PM EDT us External Provider IMG CT PROCEDURES Final Result documented in this encounter Visit Diagnoses Not on filedocumented in this encounter Care Teams [employer]awk Weapon System Operator Relationship Specialty Start Date End Date Shannon Wiley, VESSEL ENGINEER [address] [place] [address] PCP - General 02/15/21 08/10/24 Nito Lr MD [address] [facility] [address] [place] [address] PCP - General 08/11/24 Isiah Graff DO [address] [address] Surgeon Cardiothoracic Surgery 08/11/24 documented as of this encounter
--- OUTSIDE RECORDS SUMMARY | 2025-04-04 15:27 | XMS_ITS | Encounter Summary ---
Author Organization Healthcare Address [address] [place] [address] Care Team Providers Care Farmworker Vegetable Name Role Phone Shannon Wiley George HINOJOSA Primary Care Provider [phone] Nito Lr MD Primary Care Provider [phone] Isiah Graff DO Unavailable [phone] Encounter Details Date Type Department Care Team (Late st Contact Info) Description 07/02/2022 Orders Only External Location [address] [place] [address] Bryon Griffith MD [address] [place], [place] [address] Social History Tobacco Use Types Packs/Day Years [...] Info) Description 04/13/2025 10:40 AM EDT Appointment [facility] [address] [facility] [address] [place] [address] 04/13/2025 1:00 PM EDT Office Visit Pav [facility] [address] [facility], [address]nd [place] [address] Isiah Graff, DO [address] [phone] documented as of this encounter Procedures Procedure Name Priority Date/Time Associated Diagnosis Comments MR OUTSIDE IMAGES 07/02/2022 11:06 AM EDT documented in this encounter Results * MR transfer of outside films (07/02/2022 11:06 AM EDT) Anatomical Region Laterality Modality Magnetic Resonan ce 07/02/2022 11:0 6 AM EDT us Bryon Griffith MD IMG MRI PROCEDURES Final Resu lt documented in this encounter Visit Diagnoses Not on filedocumented in this encounter Care Teams Farmworker Vegetable Relationship Specialty Start Date End Date Shannon Wiley APRN [address] [place] [address] PCP - General 02/15/21 08/10/24 Nito Lr MD [facility] [address] [place] [address] PCP - General 08/11/24 Isiah Graff DO [address] [address] Surgeon Cardiothoracic Surgery 08/11/24 documented as of this encounter
== END 2025-04-04 23:59 | disposition home or self-care (01) ==
LOC: LAB.DROPOF 15:26
PROVIDERS: PCP Internal Medicine; Visit Provider Internal Medicine
DX: K86.9 Disease of pancreas, unspecified (principal)
CPT/HCPCS: 80053; 82150; 83690

== ENCOUNTER 2025-04-12 08:04 | Outpatient (CLI) | payer MEDICARE, SELFPAY ==
--- OUTSIDE RECORDS SUMMARY | 2025-04-12 08:07 | XMS_ITS | Continuity of Care Document ---
Author Organization [facility] Clini c, GENERAL SURGERY Address [address] [place] [address] Care Team Providers Care Heart Coordinator Name Role Phone CATARINA FRANCIS Primary Care Provider [phone] HECTOR DASILVA General Surgeon Assessment No assessment recorded. Plan of Treatment Reminders Order Date Submit Date Provider Last Modified By Organization Details Last Modified Time Details Appointments RECHECK 2024 01:30P M ANGEL TORRES SPA DIRECTOR Not available Not available Not available Lab None recorded . Referral None recorded . Procedures None recorded . Surgeries None recorded . Imaging None recorded . Medication Orders None recorded . Patient TargetsNo targets recorded. Patient InstructionsNo instructions recorded. Reason for Referral None Reported. Results Created Date Observation Date Name Description Value Unit Range Abnormal Flag Note LastModifiedBy Organization Detail LastModifiedTime 03/10/20 25 03/10/2025 US, abdom en, limit ed [facility] [address] [place] [address] Patien t Name: JUSTINO garcia : [address] [...] Jason Cruz MD on 03/10/20 9:10 AM [facility] Radiology [address], [address], 03/16/2025 20:54:19 03/20/20 25 03/20/2025 CT, abdom en, w/ contr ast [address] [address] Patien t Name: JUSTINO ALVAREZ Patien t : 953 Patien t 8 [...] 350 (1 x 100 mL bottle of [facility] [address]- 1414-9 1). None was wasted and discar [...] ent measur ing 2.5 cm along the electrician third ior latera l aspect . Right kidney [...] Jason Cruz MD on 025 10:15 AM [email or web address] [facility] Radiology [facility] [address] [place], [address], 03/28/2025 12:04:55 Result Notes None recorded. 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 Procedures Surgical History Date Name Laterality Status Provider Name and Address Organization Details Recorded Time 03/31/20 25 Post Void Residual; Ultrasound completed María Elena Ugarte [facility] 03/31/2025 10:16:32 03/02/20 24 incision and exploration of neck completed ANCELMO LEE MD [address] [place] [address], [phone], [facility] 03/02/2024 14:46:32 Breast Surgery completed Kieraambrose Julien [facility] 06/23/2023 11:57:34 Thyroid Surgery completed ANCELMO LEE MD [address] [place] [address], [phone], [facility] 03/02/2024 14:37:28 hysterectomy completed Kieraambrose Julien [facility] 06/23/2023 11:58:01 Tonsillectomy completed Kiera Julien [facility] 06/23/2023 11:58:12 Imaging Results None recorded. Procedure [...] height Body mass index (BMI) Body weight Heart rate Systolic And Diastolic Provider Name and Address Organization Details Last Updated DateTime 03/23/2025 165.1 cm 31.5 kg/m2 24666.96 g 65 /min 138/69 mm[Hg] Rosa Tenorio [facility] 03/23/2025 13:42:46 Social History Question Answer Notes LastModified by Organizat [facility] Details LastModified Time Tobacco Smoking Status Never Smoker Kiera Julien [facility] 06/23/2023 11:57:20 What Is Your Relationship Status? [email or web address] Information not available 03/31/2025 Sex: Female Functional Status Question Answer Note LastModified by [employer] Details LastModified Time Do you or have you ever used any other forms of tobacco or nicotine? No [email or web address] Information not available 03/31/2025 What is your level of alcohol consumption? None Information not available 06/23/2023 Are you currently employed? 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 Family History Relationship Description Onset Age of this Age Resolved Age Notes LastModified by Organization Details LastModified Time Mother Family history of malignant neoplasm [email or web address] Not available 2022 11:56:47 Mother Kidney disease [email or web address] Not available 2024 10:03:25 Father Family history of malignant neoplasm [email or web address] Not available 2022 11:57:04 Unspecified Relation Arthritis [email or web address] Not available 025 10:03:25 Unspecified Relation Hyperlipidem ia [email or web address] Not available 2024 10:03:25 Unspecified Relation Polyp of colon [email or web address] Not available 2024 10:03:25 Unspecified Relation Hypertensive disorder [email or web address] Not available 2024 10:03:25 Unspecified Relation Kidney disease [email or web address] Not available 2024 10:03:25 Medical History Condition Response Thyroid Disease N Cancer Y Thyroid Problems Y Gynecological History Statement/Question Response # of Pregnancies 2 # of Births 1 Could you be now? N Obstetrics History GPAL:G 0 P 0 0 0 0 Past Encounters Encounter ID Performer Location Encounter Start Date Encounter Closed Date Diagnosis/Indication Diagnosis SNOMED-CT Code Diagnosis ICD10 Code Diagnosis Note [id number] HECTOR DASILVA MD [facility] [address] [place] [address] 02/23/2025 11:14:54 02/28/2025 09:54:59 Left upper quadrant pain 379501297 R10.12 69-year-ol d female seen for evaluation with concern for abdominal pain. Reportedly history of cholelithi asis. Evidently this was on outside facility imaging she is uncertain from where or when. Notes more LUQ pain. Denies associatio n with foods. Will plan for RUQ US to update imaging and eval the gallbladde r. May consider CT as well given she has not LUQ pain. [id number] HECTOR DASILVA MD GENERAL SURGERY [facility] [address] [place] [id number] 03/23/2025 13:30:49 03/27/2025 10:11:55 Left upper quadrant pain 724622000 R10.12 69-year-ol d female seen for evaluation with concern for abdominal pain. Reportedly history of cholelithi asis. Evidently this was on outside facility imaging she is uncertain from where or when. Notes more LUQ pain. Denies associatio n with foods. Will plan for RUQ US to update imaging and eval the gallbladde r. May consider CT as well given she [...] Would plan for surveillan ce for now. Health Concerns Section Related Observation LastModified by Organization Detai ls LastModified Time None Recorded Concern Status LastModified by Organization Details LastModified Time None Recorded Payers Encounter Date Sequence Insurance Name Policy Number Policy Haley Covered Member ID Haley Member ID Guarantor Name 03/23/2025 1 [place]ICARE-[place] ([place]ICARE) Justino Connorsig [id number] Justino Alvarez 03/23/2025 2 [employer] [place] (MEDICARE SUPPLEMENT) Justino Alvarez [id number] Justino Alvarez Notes Date Note Type Note Provider Name and Address Organization Details Recorded Time 03/23/2025 text/html 69-year-old fema le referred for evaluation with concern for cholelithiasis. 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 Reportedly at some point was told she had cholelithiasis on outside facility imaging. She is uncertain exactly when or where this was done. Notes left upper quadrant abdominal pain. Denies any significant right upper quadrant abdominal pain. Denies nausea or vomiting. Able to tolerate a diet without significant issues. Notices a full sensation in the left upper quadrant as well as question of a bulge.03/23-Ultrasound imaging questioning a retroperitoneal mass. Subsequently followed up with CT abdomen motivate a left kidney cystic lesion but also solid component. Overall has been tolerating diet without issues. Denies nausea or vomiting. No evidence of gallstones on ultrasound. CT also noted 1.6 cm IPMN HECTOR DASILVA MD [address] [place], [address], [place] [facility] 03/23/2025 13:54:49 OBGyn Episode No OBEpisode recorded.
--- OUTSIDE RECORDS SUMMARY | 2025-04-12 08:07 | XMS_ITS | Clinical Summary ---
Author Organization [facility] Address [address] [place] [address] Care Team Providers Care Boilerhouse Mechanic Name Role Phone Nito Lr MD Primary Care Provider [phone] Isiah Graff DO Unavailable [phone] Allergies No known active allergies Medications [...] & Respiratory [address] [place] [address] Isiah Graff, DO from Last [...] any time in the past 12 m [facility], were you homeless or living in a longterm (including now)? No 09/06/2024 Utilities Answer Date [...] Info) Description 04/13/2025 10:40 AM EDT Appointment [facility] [address], [address] [place] [address] 04/13/2025 1:00 PM EDT Office Visit Pav [facility] Head[facility] Neck & Respiratory [address], [address] [place] [address] Isiah Graff, DO [address] [place] [address] Health Maintenance Due Date Last Done Comments [...] - Risk 60-74 years 1-dose series) 2013 AQC-FLSEL-58 Vaccine (8 - Pfizer risk 2023- season) 2025 08/12/2024, 01/14/2023, 06/25/2022, Additional history exists [facility]- SDOH Screenings 03/07/2025 [facility]-Adult SDOH Screenings 03/07/2025 09/06/2024 [facility]-Influenza Vaccine (#1) 2025 07/26/2024, [facility]-Pneumococcal Vaccine: 50+ Years Completed 08/19/2024 [facility]-Obesity [...] age to complete this topic Insurance MEDICARE [facility] [id number] Advance Directives Documents on File Type Date Recorded Patient Stopper Grinder Expl anation Advance Directives and Living Will 09/05/2024 Power of Slitter And Rewinder 09/05/2024 * Full Code (Latest Code Status on File) Date Activated Date Inactivated Comments 09/05/2024 9:49 AM 09/06/2024 7:43 PM Question Answer Comments Patient has decision-making capacity? Yes Care Teams Boilerhouse Mechanic Relationship Specialty Start Date End Date Nito Lr MD [address] [place] [address] [address] [place] [address] PCP - General 08/11/24 Isiah Graff DO [address] [address] Surgeon Cardiothoracic Surgery 08/11/24
--- OUTSIDE RECORDS SUMMARY | 2025-04-12 08:07 | XMS_ITS | Encounter Summary ---
Author Organization [facility] Address [address] [place] [address] Care Team Providers Care Bait Tier Name Role Phone Nito Lr MD Primary Care Provider [phone] Isiah Graff DO Unavailable [phone] Encounter Details Date Type Department Care Team ([facility] st Contact Info) Description 03/24/2025 Telephone Pav [facility] Head, Neck & Respiratory [address], [address] [place] [address] Isiah Graff, DO [address] [place] [address] Social History Tobacco Use Types [...] any time in the past 12 m [facility], were you homeless or living in a custodial (including now)? No 09/06/2024 Utilities Answer Date Recorded In the past 12 months has th e Message Bus, gas, oil, or water [employer] threatened to shut off services in your [...] Reason for Call: Per pt call to [facility], pt wished to rs all appts including scans, pt had CT done at [facility] on abdomen Tuesday 03/20, asking if that will meet provider needs. 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 Pt concerned about radiation with back to back scans. Best contact number and optimal time of day to reach caller: [phone], okay to leave appt information, address concerns [...] will receive notification of the communication/outcome via [employer]. documented in this encounter Plan of Treatment Upcoming Encounters Date Type Department Care Team (Late st Contact Info) Description 04/13/2025 10:40 AM EDT Appointment [facility] [address], [address] [place] [address] 04/13/2025 1:00 PM EDT Office Visit Pav [facility] Head, Neck & Respiratory [address] [facility], [address]nd [place] [address] Isiah Graff D, DO [address] [address] documented as of this encounter Visit Diagnoses Not on filedocumented in this encounter Additional Health Concerns Assessment Noted Time A fall risk assessment has been complete d for the patient 08/11/2024 10:01 AM EST A Body Mass Index follow-up plan has been documented for the patient 09/22/2024 8:12 PM EST documented as of this encounter Care Teams Bait Tier Relationship Specialty Start Date End Date Nito rL MD [address] [facility] [address] [place] [address] PCP - General 08/11/24 Isiah Graff DO [address] [address] Surgeon Cardiothoracic Surgery 08/11/24 documented as of this encounter
--- OUTSIDE RECORDS SUMMARY | 2025-04-12 08:07 | XMS_ITS | Encounter Summary ---
Author Organization Healthcare Address [address] [place] [address] Care Team Providers Care Risk Engineer Name Role Phone Shannon Wiley George HINOJOSA Primary Care Provider [phone] Nito Lr MD Primary Care Provider [phone] Isiah Graff DO Unavailable [phone] Encounter Details Date Type Department Care Team (Late st Contact Info) Description 10/17/2021 Orders Only External Location [address] [place] [address] Bryon Griffith MD [address] [place], [place] [address] Social History Tobacco Use Types Packs/Day Years [...] Info) Description 04/13/2025 10:40 AM EDT Appointment [facility] [address] [facility], [address] [place] [address] 04/13/2025 1:00 PM EDT Office Visit Pav CC Head, Neck & Respiratory 800 [facility], 2nd [place] [address] Isiah Graff, DO [address] [phone] documented as of this encounter Procedures Procedure [...] on filedocumented in this encounter Care Teams Risk Engineer Relationship Specialty Start Date End Date Shannon Wiley APRN [address] [place] [address] PCP - General 02/15/21 08/10/24 Nito Lr MD [address] [place] [address] [address] [place] [address] PCP - General 08/11/24 Isiah Graff DO [address] [phone] Surgeon Cardiothoracic Surgery 08/11/24 documented as of this encounter
--- OUTSIDE RECORDS SUMMARY | 2025-04-12 08:07 | XMS_ITS | Encounter Summary ---
Author Organization Healthcare Address [address] [place] [address] Care Team Providers Care Diabetologist Name Role Phone Shannon Wiley George HINOJOSA Primary Care Provider [phone] Nito Lr MD Primary Care Provider [phone] Isiah Graff DO Unavailable [phone] Encounter Details Date Type Department Care Team (Late st Contact Info) Description 07/02/2022 Orders Only External Location [address] [place] [address] Bryon Griffith MD [address] [place], [place] [address] Social History Tobacco Use Types Packs/Day Years [...] Info) Description 04/13/2025 10:40 AM EDT Appointment [facility] [address] [facility] [place] [address] 04/13/2025 1:00 PM EDT Office Visit Pav CC Head, Neck & Respiratory 800 [facility], 2nd [place] [address] Isiah Graff, DO [address] [phone] documented as of this encounter Procedures Procedure [...] on filedocumented in this encounter Care Teams Diabetologist Relationship Specialty Start Date End Date Shannon Wiley APRN [address] [place] [address] PCP - General 02/15/21 08/10/24 Nito Lr MD [facility] [address] [place] [address] PCP - General 08/11/24 Isiah Graff DO [address] [address] Surgeon Cardiothoracic Surgery 08/11/24 documented as of this encounter
--- OUTSIDE RECORDS SUMMARY | 2025-04-12 08:07 | XMS_ITS | Continuity of Care Document ---
Author Organization [facility] Clini c, GENERAL SURGERY Address [address] [place] [address] Care Team Providers Care Clinical Data Manager Name Role Phone CATARINA FRANCIS Primary Care Provider [phone] HECTOR DASILVA General Surgeon Assessment No assessment recorded. Plan of Treatment Reminders Order Date Submit Date Provider Last Modified By Organization Details Last Modified Time Details Appointments RECHECK 2024 01:30P M ANGEL TORRES ORAL PATHOLOGIST Not available Not available Not available Lab [...] 25 03/10/2025 US, abdom en, limit ed [facility] [address] [place] [address] Patien t Name: JUSTINO garcia : 953 [...] Jason Cruz MD on 03/10/20 9:10 AM [facility] Radiology [address], [address], 03/16/2025 20:54:19 03/20/20 25 03/20/2025 CT, abdom en, w/ contr ast [address] [address] Patien t Name: JUSTINO ALVAREZ Patien t [...] 350 (1 x 100 mL bottle of [facility] [address]- [address]14-9 1). 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 Right kidney [...] Jason Cruz MD on 025 10:15 AM [email or web address] [facility] Radiology [facility] [address] [place], [address], 03/28/2025 12:04:55 Result Notes None recorded. Problems Name Problem SNOMED Code Status Onset Date Resolution Date Notes Provider Name and Address Organization Details Recorded Time Postoperat eda hypothyroi dism 47906728 Active 2014 From Automated Load;Provi bhumi: Maribel Rodriguez;Sam tus: Active Not Available [facility] 06:22:16 Problem Notes None recorded. Procedures Surgical History Date Name Laterality Status Provider Name and Address Organization Details Recorded Time 03/31/20 25 Post Void Residual; Ultrasound completed María Elena Ugarte [facility] 03/31/2025 10:16:32 03/02/20 24 incision and exploration of neck completed ANCELMO LEE MD [address] [place] [address], [address], [facility] 03/02/2024 14:46:32 Breast Surgery completed Kieraambrose Julien [facility] 06/23/2023 11:57:34 Thyroid Surgery completed ANCELMO LEE MD [address] [place] [address], [address], [facility] 03/02/2024 14:37:28 hysterectomy completed Kieraambrose Julien [facility] 06/23/2023 11:58:01 Tonsillectomy completed Kiera Julien [facility] 06/23/2023 11:58:12 Imaging Results None recorded. [...] and Address Organization Details Last Updated DateTime 02/23/2025 165.1 cm 31 kg/m2 99582.18 g Jenny Wynnown [facility] 02/23/2025 11:28:21 Social History Question Answer Notes LastModified by Organizat ion Details LastModified Time Tobacco Smoking Status [facility]2023 11:57:20 What Is Your Relationship Status? [email or web address] Information not available 03/31/2025 Sex: Female Functional Status Question Answer Note LastModified by Organizat ion Details LastModified Time Do you or have you ever used any other forms of tobacco or nicotine? No [email or web address] Information not available 03/31/2025 What is your level of alcohol consumption? None [email or web address] Information not available 06/23/2023 Are you currently employed? 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 Family History Relationship Description Onset Age of this Age Resolved Age Notes LastModified by Organization Details LastModified Time Mother Family history of malignant neoplasm [email or web address] Not available 2022 11:56:47 Mother Kidney disease [email or web address] Not available 2024 10:03:25 Father Family history of malignant neoplasm [email or web address] Not available 2022 11:57:04 Unspecified Relation Arthritis [email or web address] Not available 06/27/2 025 10:03:25 Unspecified Relation Hyperlipidem ia [email or web address] [...] SNOMED-CT Code Diagnosis ICD10 Code Diagnosis Note [id number] HECTOR DASILVA MD GENERAL SURGERY [address] [place] [address] 02/23/2025 11:14:54 02/28/2025 09:54:59 Left upper quadrant pain 574828983 R10.12 69-year-ol d female seen for evaluation with concern for abdominal pain. Reportedly history of cholelithi asis. Evidently this was on outside facility imaging she is uncertain from where or when. Notes more LUQ pain. Denies associatio n with foods. Will plan for RUQ US to update imaging and eval the lennie r. May consider CT as well given she has not LUQ pain. Health Concerns Section Related Observation LastModified by Organization Detai ls LastModified Time None Recorded Concern Status LastModified by Organization Details LastModified Time None Recorded Payers Encounter Date Sequence Insurance Name Policy Number Policy Haley Covered Member ID Haley Member ID Guarantor Name 02/23/2025 1 [place] Justino Alvarez [id number] Justino Alvarez 02/23/2025 2 [employer] [place] (MEDICARE SUPPLEMENT) Justino Alvarez [id number] Justino Alvarez Notes Date Note Type Note Provider Name and Address Organization Details Recorded Time 02/23/2025 text/html 69-year-old fema le referred for evaluation [...] quadrant as well as question of a bulge. HECTOR DASILVA MD [facility] [place], [address], [facility] 02/23/2025 11:55:39 OBGyn Episode No OBEpisode recorded.
--- OUTSIDE RECORDS SUMMARY | 2025-04-12 08:08 | XMS_ITS | Encounter Summary ---
Author Organization Healthcare Address [address] [place] [address] Care Team Providers Care Oss Architect Name Role Phone SaurabhShannon APRN Primary Care Provider [phone] Nito Lr MD Primary Care Provider [phone] Isiah Graff DO Unavailable [phone] Encounter Details Date Type Department Care Team (Late st Contact Info) Description 07/10/2023 Orders Only External Location [address] [place] [address] Provider, External Social History Tobacco Use Types [...] 04/13/2025 10:40 AM EDT Appointment [facility] [address] [place] [address] 04/13/2025 1:00 PM EDT Office Visit Pav CC Head, Neck & Respiratory [address] [facility], [address]nd [place] [address] Isiah Graff, DO [address] [address] documented as of this encounter Procedures Procedure [...] on filedocumented in this encounter Care Teams Oss Architect Relationship Specialty Start Date End Date Shannon Wiley, [employer]ER [address] [place] [address] PCP - General 02/15/21 08/10/24 Nito Lr MD [address] [facility] [address] [place] [address] PCP - General 08/11/24 Isiah Graff DO [address] [address] Surgeon Cardiothoracic Surgery 08/11/24 documented as of this encounter
--- OUTSIDE RECORDS SUMMARY | 2025-04-12 08:08 | XMS_ITS | Encounter Summary ---
Author Organization Healthcare Address [address] [place] [address] Care Team Providers Care Family And Consumer Sciences Professor Name Role Phone Shannon Wiley George HINOJOSA Primary Care Provider [phone] Nito Lr MD Primary Care Provider [phone] Isiah Graff DO Unavailable [phone] Encounter Details Date Type Department Care Team (Late st Contact Info) Description 06/17/2024 Orders Only External Location [address] [place] [address] Bryon Griffith MD [address] [place], [place] [address] Social History Tobacco Use Types Packs/Day Years [...] Info) Description 04/13/2025 10:40 AM EDT Appointment [facility] [address] [facility] [place] [address] 04/13/2025 1:00 PM EDT Office Visit Pav CC Head, Neck & Respiratory [address] [facility], 2nd [place] [address] Isiah Graff, DO [address] [phone] documented as of this encounter Procedures Procedure [...] on filedocumented in this encounter Care Teams Family And Consumer Sciences Professor Relationship Specialty Start Date End Date Shannon Wiley APRN [address] [place] [address] PCP - General 02/15/21 08/10/24 Nito Lr MD [facility] [place] [place] [address] PCP - General 08/11/24 Isiah Graff DO [address] [phone] Surgeon Cardiothoracic Surgery 08/11/24 documented as of this encounter
--- OUTSIDE RECORDS SUMMARY | 2025-04-12 08:08 | XMS_ITS | Encounter Summary ---
Author Organization Healthcare Address [address] [place] [address] Care Team Providers Care Window Display Designer Name Role Phone SaurabhShannon APRN Primary Care Provider [phone] Nito Lr MD Primary Care Provider [phone] Isiah Graff DO Unavailable [phone] Encounter Details Date Type Department Care Team (Late st Contact Info) Description 07/21/2023 Orders Only External Location [address] [place] [phone] Provider, External Social History Tobacco Use Types [...] Info) Description 04/13/2025 10:40 AM EDT Appointment [facility] [address], [address] [place] [address] 04/13/2025 1:00 PM EDT Office Visit Pav CC Head, Neck & Respiratory [address] [facility], [address]nd [place] [address] Isiah Graff, DO [address] [address] documented as of this encounter Procedures Procedure [...] on filedocumented in this encounter Care Teams Window Display Designer Relationship Specialty Start Date End Date Shannon Wiley, SANDER PORTABLE MACHINE [address] [place] [address] PCP - General 02/15/21 08/10/24 Nito Lr MD [address] [facility] [address] [place] [address] PCP - General 08/11/24 Isiah Graff DO [address] [address] Surgeon Cardiothoracic Surgery 08/11/24 documented as of this encounter
--- OUTSIDE RECORDS SUMMARY | 2025-04-12 08:08 | XMS_ITS | Continuity of Care Document ---
Author Organization [facility] Address [address] [place] [address] Care Team Providers Care Grid Caster Name Role Phone CATARINA FRANCIS Primary Care Provider [phone] HECTOR DASILVA General Surgeon Assessment Encounter Date [...] panel, auto 2024 Peyman haines [facility], [address] [place], [address], 03/31/2025 10:26:07 Referral None recorded . Procedures None recorded . Surgeries None recorded . Imaging None recorded . Medication Orders None recorded . Patient TargetsNo targets recorded. Patient Instructions Encounter Date Encounter Id Patient Instructions Last Modified By Organization Details Last Modified Time 03/31/2025 [id number] - Follow up with Dr. Godfrey for [...] Clean Catch Not Available Cu/L[facility] [address] [place], [address], 03/31/2025 10:16:37 03/31/20 25 03/31/2025 urina lysis panel , auto Unknown Analyte Yellow Not Available [facility] [address] [place], [address], 03/31/2025 10:16:37 03/31/20 25 03/31/2025 urina lysis panel , auto Unknown Analyte Slight ly Cloudy Not Available [facility] [address] [place], [address], 03/31/2025 10:16:37 03/31/20 25 03/31/2025 urina lysis panel , auto Unknown Analyte 1.015 Not Available [facility] [address] [place], [address], 03/31/2025 10:16:37 03/31/20 25 03/31/2025 urina lysis panel , auto Unknown Analyte 5.0 Not Available [facility] [facility], [place], [address], 03/31/2025 10:16:37 03/31/20 25 03/31/2025 urina lysis panel , auto Unknown Analyte 500 Farzana/uL Not Available Cu/[facility] Urol[facility] [address] [facility], [place], [address], 03/31/2025 10:16:37 03/31/20 25 03/31/2025 urina lysis panel , auto Unknown Analyte Negati ve Not Available [facility] [address] [facility], [place], [address], 03/31/2025 10:16:37 03/31/20 25 03/31/2025 urina lysis panel , auto Unknown Analyte Negati ve Not Available [facility] [facility], [place], [address], 03/31/2025 10:16:37 03/31/20 25 03/31/2025 urina lysis panel , auto Unknown Analyte Normal Not Available [facility] [address] [facility], [place], [address], 03/31/2025 10:16:37 03/31/20 25 03/31/2025 urina lysis panel , auto Unknown Analyte Negati ve Not Available [facility] [place], [address], 03/31/2025 10:16:37 03/31/20 25 03/31/2025 urina lysis panel , auto Unknown Analyte Normal Not Available [facility] [address] [place], [address], 03/31/2025 10:16:37 03/31/20 25 03/31/2025 urina lysis panel , auto Unknown Analyte Negati ve Not Available [facility] [address], [place], [address], 03/31/2025 10:16:37 03/31/20 25 03/31/2025 urina lysis panel , auto Unknown Analyte Negati ve Not Available [facility] [address], [place], [address], 03/31/2025 10:16:37 03/10/20 25 03/10/2025 US, abdom en, limit ed [facility] [address] [place] [address] Patimorales garcia Name: JUSTINO garcia : 951 [...] Cruz MD on 03/10/20 9:10 AM [facility] Radiology [facility] [address] [place] [address], [phone], 03/16/2025 20:54:19 03/20/2003/20/2025 CT, abdom en, w/ contr ast [address] [address] [phone] Patien t Name: JUSTINO HESS Patien t [...] 350 (1 x 100 mL bottle of [facility] [address]459- 1414-9 1). None was wasted and discar [...] ent measur ing 2.5 cm along the pantographer ior latera l aspect . Right kidney [...] Jason Cruz MD on 025 10:[email or web address] Radiology [address], [address], 03/28/2025 12:04:55 Result Notes None recorded. 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 Procedures Surgical History Date Name Laterality Status Provider Name and Address Organization Details Recorded Time 03/31/20 25 Post Void Residual; Ultrasound completed María Elena Ugarte [facility] 03/31/2025 10:16:32 03/02/20 24 incision and exploration of neck completed ANCELMO LEE MD [address] [place] [address], [address], [facility] 03/02/2024 14:46:32 Breast Surgery completed Kiera Julien [facility] 06/23/2023 11:57:34 Thyroid Surgery completed ANCELMO LEE MD [address] [place] [address], [address], [facility] 03/02/2024 14:37:28 hysterectomy completed Kiera Wily [facility] 06/23/2023 11:58:01 Tonsillectomy completed Kiera Wily [facility] 06/23/2023 11:58:12 Imaging Results None recorded. Procedure [...] Updated DateTime 03/31/2025 165.1 cm 31.5 kg/m2 59238.96 g María Elena Ugarte [facility] 03/31/2025 10:16:07 Social History Question Answer Notes LastModified by Organizat ion Details LastModified Time Tobacco Smoking Status Never Smoker [facility] 06/23/2023 11:57:20 What Is Your Relationship Status? [email or web address] Information not available 03/31/2025 Sex: Female Functional Status Question Answer Note LastModified by Organizat ion Details LastModified Time Do you or have you ever used any other forms of tobacco or nicotine? No [email or web address] Information not available 03/31/2025 What is your level of alcohol consumption? None [email or web address] Information not available 06/23/2023 Are you currently employed? 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 Family History Relationship Description Onset Age of this Age Resolved Age Notes LastModified by Organization Details LastModified Time Mother Family history of malignant neoplasm Not available 2022 11:56:47 Mother Kidney disease [email or web address] Not available 2024 10:03:25 Father Family history of malignant neoplasm Not available 2022 11:57:04 Unspecified Relation Arthritis [...] SNOMED-CT Code Diagnosis ICD10 Code Diagnosis Note [id number] HECTOR DASILVA MD GENERAL SURGERY [address] [place] [address] 03/23/2025 13:30:49 03/27/2025 10:11:55 Left upper quadrant pain 349475398 R10.12 69-year-ol d female seen for evaluation [...] Would plan for surveillan ce for now. [id number] ANGEL TORRES APRN UROLOGY [address] [place] [address] 03/31/2025 09:56:30 03/31/2025 10:54:15 Renal mass 580107628 N28.89 If the lesion is deemed benign, periodic imaging may be recommende d to monitor for any changes. Urinary incontinence 165 703421 R32 The urinary incontinen ce was acknowledg ed, but specific management strategies were not detailed during the visit. Cyst of pancreas 2653913 0 K86.2 Health Concerns Section Related Observation LastModified by Organization Detai ls LastModified Time None Recorded Concern Status LastModified by Organization Details LastModified Time None Recorded Payers Encounter Date Sequence Insurance Name Policy Number Policy Haley Covered Member ID Haley Member ID Guarantor Name 03/31/2025 1 [place] Justino Hess [id number] Justino Hess 03/31/2025 2 [facility] (MEDICARE SUPPLEMENT) Justino Hess [id number] Justino Hess Notes Date Note Type Note [...] has never been a smoker. ANGEL TORRES, FLIGHT PARAMEDIC [address] [place], [address], [place] [facility] 03/31/2025 15:20:35 OBGyn Episode No OBEpisode recorded.
--- OUTSIDE RECORDS SUMMARY | 2025-04-12 08:08 | XMS_ITS | Encounter Summary ---
Author Organization Healthcare Address [address] [place] [address] Care Team Providers Care Jeweler Apprentice Name Role Phone SaurabhShannon APRN Primary Care Provider [phone] Nito Lr MD Primary Care Provider [phone] Isiah Graff DO Unavailable [phone] Encounter Details Date Type Department Care Team (Late st Contact Info) Description 07/24/2023 Orders Only External Location [address] [place] [address] Provider, External Social History Tobacco Use Types [...] Info) Description 04/13/2025 10:40 AM EDT Appointment [facility] [address] [place] [address] 04/13/2025 1:00 PM EDT Office Visit Pav CC Head, Neck & Respiratory 800 [facility], [address]nd [place] [address] Isiah Graff, DO [address] [address] documented as of this encounter Procedures Procedure [...] on filedocumented in this encounter Care Teams Jeweler Apprentice Relationship Specialty Start Date End Date Shannon Wiley, INFORMATION SECURITY SPECIALIST [address] [place] [address] PCP - General 02/15/21 08/10/24 Nito Lr MD [address] [facility] [address] [place] [address] PCP - General 08/11/24 Isiah Graff DO [address] [address] Surgeon Cardiothoracic Surgery 08/11/24 documented as of this encounter
--- OUTSIDE RECORDS SUMMARY | 2025-04-12 08:08 | XMS_ITS | Encounter Summary ---
Author Organization Healthcare Address [address] [place] [address] Care Team Providers Care Brush Filler Hand Name Role Phone Shannon Wiley George HINOJOSA Primary Care Provider [phone] Nito Lr MD Primary Care Provider [phone] Isiah Graff DO Unavailable [phone] Encounter Details Date Type Department Care Team (Late st Contact Info) Description 06/19/2023 Orders Only External Location [address] [place] [address] Bryon Griffith MD [address] [place], [place] [id number] Social History Tobacco Use Types Packs/Day Years [...] Info) Description 04/13/2025 10:40 AM EDT Appointment [facility] [address] [facility] [place] [address] 04/13/2025 1:00 PM EDT Office Visit Pav CC Head, Neck & Respiratory 800 [facility], [address]nd [place] [address] Isiah Graff, DO [address] [phone] documented as of this encounter Procedures Procedure [...] on filedocumented in this encounter Care Teams Brush Filler Hand Relationship Specialty Start Date End Date Shannon Wiley APRN [address] [place] [address] PCP - General 02/15/21 08/10/24 Nito Lr MD [facility] [address] [place] [address] PCP - General 08/11/24 Isiah Graff DO [address] [address] Surgeon Cardiothoracic Surgery 08/11/24 documented as of this encounter
--- OUTSIDE RECORDS SUMMARY | 2025-04-12 08:08 | XMS_ITS | Encounter Summary ---
Author Organization Healthcare Address [address] [place] [address] Care Team Providers Care Brick Chimney Builder Name Role Phone SaurabhShannon APRN Primary Care Provider [phone] Nito Lr MD Primary Care Provider [phone] Isiah Graff DO Unavailable [phone] Encounter Details Date Type Department Care Team (Late st Contact Info) Description 07/10/2023 Orders Only External Location [address] [place] [phone] Provider, External Social History Tobacco Use Types [...] Info) Description 04/13/2025 10:40 AM EDT Appointment [facility] [address] [place] [address] 04/13/2025 1:00 PM EDT Office Visit Pav CC Head, Neck & Respiratory [address] [facility], [address]nd [place] [address] Isiah Graff, DO [address] [address] documented as of this encounter Procedures Procedure [...] on filedocumented in this encounter Care Teams Brick Chimney Builder Relationship Specialty Start Date End Date Shannon Wiley, TELLER COORDINATOR [address] [place] [address] PCP - General 02/15/21 08/10/24 Nito Lr MD 1210 [facility] [address] [place] [address] PCP - General 08/11/24 Isiah Graff DO [address] [address] Surgeon Cardiothoracic Surgery 08/11/24 documented as of this encounter
--- OUTSIDE RECORDS SUMMARY | 2025-04-12 08:08 | XMS_ITS | Data Portability ---
Author Organization DEE JOSE Banks FARRELL CLOSED Address [address] [place] [address] Care Team Providers Care Electrical Design Technician Name Role Phone CATARINA FRANCIS Primary Care Provider HECTOR DASILVA General Surgeon Assessment Encounter Date [...] available Lab urinalys is panel, auto 2024 025 [email or web address] [facility] [address], [address], [place], [address], 03/31/2025 10:26:07 PTH (parathy roid hormone) , intact + calcium, serum or plasma 2023 [facility], [address] [place] [address], [phone], 07/07/2024 17:41:07 PTH (parathy roid hormone) , intact, intraope rative panel, serum or plasma 2023 024 [email or web address] [facility], [address] [place] [address], [phone], 07/14/2024 07:20:30 calcium, ionized, quant, serum or plasma 2023 [facility] [address] [place] [address], [phone], 07/09/2024 09:15:40 calcium, serum or plasma 2023 [facility], [address] [place] [address], [phone], 07/07/2024 17:30:41 Referral None recorded . Procedures None recorded . Surgeries None recorded . Imaging electroc ardiogra m 2023 024 [email or web address] [facility], [address] [facility], [facility], [place], [address], 07/19/2024 13:15:07 Medication Orders None recorded . Patient TargetsNo targets recorded. Patient Instructions Encounter Date Encounter Id Patient Instructions Last Modified By Organization Details Last Modified Time 07/07/2024 [id number] 1. Discussed lab results with Pt. 2. Surgical pathology reviewed with patient. 3. PTH and ionized calcium and serum calcium ordered for patient. 4. Ordered CT w/ contrast - mediastinal mass 5. Ordered Echo and EKG for pt. 6. Follow up with results. : May require chest exploration [email or web address] Not available 07/07/2024 18:35:08 03/31/2025 [id number] - Follow up with Dr. Godfrey for [...] Abnormal Flag Note LastModifiedBy Organization Detail LastModifiedTime 07/07/20 24 07/07/2024 CALCI UM calcium 10.9 mg/dL 8.6-10 .2 high Not Available [facility] [address] [place], [address], 07/07/2024 17:30:41 07/07/20 24 07/07/2024 PTH, INTAC T WITH CA PTH, intact 64.0 pg/mL 15.0-6 5.0 normal INTER PRETI VE GUIDE ===== ===== ===== ===== ===== ===== ===== ===== ===== ===== ===== === PTH CALCI UM CONDI TION ===== ===== ===== ===== ===== ===== ===== ===== ===== ===== ===== = Sonal l Sonal l Sonal l Parat hyroi d _ Low or Low Hypop heidi yroid ism Low Sonal l _ Sonal l or High Prima ry Hyper parat hyroi dism High __ High Sonal l or Secon aquiles Hyper parat hyroi dism Low __ High High Terti cassie Hyper parat hyroi dism __ Low or High Non-P heidi yroid Hyper calce anton Low Sonal l ===== ===== ===== ===== ===== ===== ===== ===== ===== ===== ===== ==== Not Available [facility] [address] [place] [address], [address], 07/07/2024 17:48:17 07/07/20 24 07/07/2024 PTH, INTAC T WITH CA calcium 11.0 mg/dL 8.6-10 .2 high Not Available [facility] [address] [place] [address], [phone], 07/07/2024 17:48:17 07/07/20 24 07/09/2024 IONIZ ED CALCI UM ionized calcium 5.6 mg/dL 4.7-5. 5 high Not Available [facility] [address] [place] [address], [address], 07/09/2024 09:15:40 03/31/20 25 03/31/2025 urina lysis panel , auto Unknown Analyte Clean Catch Not Available [facility] [address] [facility], [place], [address], 03/31/2025 10:16:37 03/31/20 25 03/31/2025 urina lysis panel , auto Unknown Analyte Yellow Not Available [facility] [address] [place], [address], 03/31/2025 10:16:37 03/31/20 25 03/31/2025 urina lysis panel , auto Unknown Analyte Slight ly Cloudy Not Available [facility] [address] [facility], [place], [address], 03/31/2025 10:16:37 03/31/20 25 03/31/2025 urina lysis panel , auto Unknown Analyte 1.015 Not Available [facility] [address] [place], [address], 03/31/2025 10:16:37 03/31/20 25 03/31/2025 urina lysis panel , auto Unknown Analyte 5.0 Not Available [facility] [address] [place], [address], 03/31/2025 10:16:37 03/31/20 25 03/31/2025 urina lysis panel , auto Unknown Analyte 500 Farzana/uL Not Available [facility] [address] [place], [address], 03/31/2025 10:16:37 03/31/20 25 03/31/2025 urina lysis panel , auto Unknown Analyte Negati ve Not Available [facility] [address] [place], [address], 03/31/2025 10:16:37 03/31/20 25 03/31/2025 urina lysis panel , auto Unknown Analyte Negati ve Not Available [facility] [address] [facility], [place], [address], 03/31/2025 10:16:37 03/31/20 25 03/31/2025 urina lysis panel , auto Unknown Analyte Normal Not Available [facility] [address] [facility], [place], [address], 03/31/2025 10:16:37 03/31/20 25 03/31/2025 urina lysis panel , auto Unknown Analyte Negati ve Not Available [facility] [address] [facility], [place], [address], 03/31/2025 10:16:37 03/31/20 25 03/31/2025 urina lysis panel , auto Unknown Analyte Normal Not Available [facility] [address] [facility], [place], [address], 03/31/2025 10:16:37 03/31/20 25 03/31/2025 urina lysis panel , auto Unknown Analyte Negati ve Not Available [facility] [address] [facility], [place], [address], 03/31/2025 10:16:37 03/31/20 25 03/31/2025 urina lysis panel , auto Unknown Analyte Negati ve Not Available [facility] [address] [place], [address], 03/31/2025 10:16:37 07/13/20 24 07/13/2024 MAMMO , diagn ostic , tomos ynthe sis, unila teral , w/ CAD [facility] [address] [facility] [place] [address] Patimorales t Name: JUSTINO garcia : [birth year] Age: 69 years Patimorales t 8 Orderi ng Provid er: CATARINA FRANCIS JR EXAM DATE: 2023 EXAM: MG LT DIAG CASSIE MAMMOG DIONICIO INDICA TION: 69-yea r-old female with 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 Patien t return s for abnorm al screen ing mammog dionicio Decemb er 2022. PROCED URE: Multis lice imagin g of the left breast was perfor med includ ing standa rd views using Hologi c Seleni a Dimens ions tomosy nthesi s equipm ent (3D mammog alex) . 2D images were create d from the 3D datase t using C-View softwa re. Left breast ultras ound was perfor med. COMPAR HONG: This is compar ed with prior mammog eric dated back to 2011 FINDIN GS: There are scatte red areas of fibrog landul ar densit y. Previo usly descri bed low-de nsity mass in the inferi or left breast is stable given differ ences in techni que. No new mass, area of alexander ectura l distor tion or suspic ious calcif icatio n. ULTRAS OUND FINDIN GS: Target ed left breast ultras ound was perfor med by the techno logist . IMPRES JOAQUIN: BI-RAD S catego ry 1, Negati ve. COMMEN T: Findin gs and recomm endati ons were discus sed with the patien t. 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 Patien t return s for abnorm al screen ing mammog dionicio Decemb er 2022. PROCED URE: Multis lice imagin g of the left breast was perfor med includ ing standa rd views using Hologi c Seleni a Dimens ions tomosy nthesi s equipm ent (3D mammog alex) . 2D images were create d from the 3D datase t using C-View softwa re. Left breast ultras ound was perfor med. COMPAR HONG: This is compar ed with prior mammog eric dated back to 2011 FINDIN GS: There are scatte red areas of fibrog landul ar densit y. Previo usly descri bed low-de nsity mass in the inferi or left breast is stable given differ ences in techni que. No new mass, area of alexander ectura l distor tion or suspic ious calcif icatio n. ULTRAS OUND FINDIN GS: Target ed left breast ultras ound was perfor med by the techno logist . IMPRES JOAQUIN: BI-RAD S catego ry 1, Negati ve. COMMEN T: Findin gs and recomm endati ons were discus sed with the patien t. Interp reted By: Mayra pham MD Electr onical ly Signed By: Mayra pham MD on 024 8:13 PM [email or web address] [facility] [address] [place], [address], 07/14/2024 08:54:45 07/19/20 elect rocar diogr am No observ ation record ed. [email or web address] Not Available 2023 12:41:59 07/19/2007/19/2024 elect rocar diogr am No observ ation record ed. [email or web address] [facility] [address] [place] [address] [facility], [place], [address], 07/19/2024 12:48:31 07/19/2007/19/2024 US, doppl er echoc ardio gram, w/ color flow No observ ation record ed. [facility] [address] [facility] , [place], [address], 07/20/2024 14:31:21 08/03/20 24 08/03/2024 CT, chest , w/ contr ast [facility] [address] [facility] [place] [address] Patimorales t Name: JUSTINO HESS Patimorales t : 9[birth year] Patien t 8 Orderi ng Provid er: NANCY Y V OSETIN LANRE EXAM DATE: 2023 EXAM: CT CHEST WITH CONTRA ST CLINIC AL INFORM ATION: Medias tinal mass TECHNI QUE: No POC testin g for eGFR was perfor med due to absenc e of risk factor s. Multip le axial CT images of the chest were obtain ed after inject ion of 100 mL Omnipa que 350 (1 x 100 mL bottle of [facility] [address]-9 1). none was wasted and discar ded. COMPAR HONG: None. FINDIN GS: AIRWAY S AND LUNGS: Trache a, princi pal bronch i and major bronch ial branch es are patent and normal . Lungs are clear. MEDIAS TINUM: There is a mass in the anteri or medias tinal fat. This measur es 3.3 x 2.6 cm which is slight ly larger than the previo us study, previo usly 2.9 x 2.4 cm. Aorta, SVC, pulmon cassie arteri es, pulmon cassie veins and their major branch es and tribut kulwant are normal . No gross cardia c abnorm ality. PLEURA AND CHEST WALL: No pleura l effusi on or mass. No chest wall abnorm ality. UPPER ABDOMI NAL ORGANS : Limite d imagin g of the upper abdome n shows a cystic lesion in the pancre atic tail measur ing 12 mm. It is perhap s minima lly more pronou nced than the prior study. There is an additi onal more subtle cystic lesion measur ing 5 mm. Sugges t correl ating with MRI, pancre atic mass protoc ol COMBIN ED IMPRES JOAQUIN: 1. Very slight interv al increa se in the anteri or medias tinal mass 2. There are 2 lesion s involv ing the pancre atic tail likely IPMN lesion s. Sugges t follow -up MRI Interp reted By: Jason Cruz MD Electr onical ly Signed By: Jason Cruz MD on 2023 9:38 AM [email or web address] [facility] [address] [place] [address], [address], 08/03/2024 14:51:59 03/10/20 25 03/10/2025 US, abdom en, limit ed [facility] ton [address] [address] Patimorales garcia Name: JUSTINO garcia : [birth year] Patimorales garcia 8 Orderi ng Provid er: HECTOR DASILVA [...] Jason Cruz MD on 03/10/20 9:10 AM [facility] [address] [place] [address], [address], 03/16/2025 20:54:19 03/20/2003/20/2025 CT, abdom en, w/ contr ast [address] [address] Patien t Name: JUSTINO HESS Patien t [...] 350 (1 x 100 mL bottle of [facility] [address]- 1414-9 1). None was wasted and discar [...] ent measur ing 2.5 cm along the pathology laboratory aide ior latera l aspect . Right kidney [...] Jason Cruz MD on 025 10:15 AM [email or web address] [facility] [address], [address], 03/28/2025 12:04:55 Result Notes Documentation Provider Name and Address Organization Details Recorded Time Mammo, Diagnostic, Tomosynthesis, Unilateral, W/ Cad : [address] [address] Patient Name: JUSTINO HESS Patient : 1955 Age: 69 years Patient Ordering Provider: CATARINA FRANCIS JR EXAM DATE: 07/13/2024 EXAM: MG MALIK DIANakul CASSIE MAMMOGRAM INDICATION: 69-year-old female with history of right breast malignancy status post mastectomy. Patient returns for abnormal screening mammogram September 2023. PROCEDURE: Multislice imaging of the left breast was performed including standard views using [employer] Dim[employer] tomosynthesis equipment (3D mammography). 2D images were created from the 3D dataset using C-View software. Left breast ultrasound was performed. COMPARISON: This is compared with prior mammograms dated back to 2011 FINDINGS: There are scattered areas of fibroglandular density. Previously described low-density mass in the inferior left breast is stable given differences in technique. No new mass, area of architectural distortion or suspicious calcification. ULTRASOUND FINDINGS: Targeted left breast ultrasound was performed by the technologist. IMPRESSION: BI-RADS category 1, Negative. COMMENT: Findings and recommendations were discussed with the patient. Interpreted By: Mayra Eisenberg MD [facility] 07/14/2024 08:54:45 Ct, Chest, W/ Contrast : [address] [address] Patient Name: JUSTINO HESS Patient : 1955 Patient Ordering Provider: ANCELMO LEE EXAM DATE: 08/03/2024 EXAM: CT CHEST WITH CONTRAST CLINICAL INFORMATION: Mediastinal mass TECHNIQUE: No POC testing for eGFR was performed due to absence of risk factors. Multiple axial CT images of the chest were obtained after injection of 100 mL Omnipaque 350 (1 x 100 mL bottle of [facility] [id number]). none was wasted and discarded. COMPARISON: None. FINDINGS: AIRWAYS AND LUNGS: Trachea, principal bronchi and major bronchial branches are patent and normal. Lungs are clear. MEDIASTINUM: There is a mass in the anterior mediastinal fat. This measures 3.3 x 2.6 cm which is slightly larger than the previous study, previously 2.9 x 2.4 cm. Aorta, SVC, pulmonary arteries, pulmonary veins and their major branches and tributaries are normal. No gross cardiac abnormality. PLEURA AND CHEST WALL: No pleural effusion or mass. No chest wall abnormality. UPPER ABDOMINAL ORGANS: Limited imaging of the upper abdomen shows a cystic lesion in the pancreatic tail measuring 12 mm. It is perhaps minimally more pronounced than the prior study. There is an additional more subtle cystic lesion measuring 5 mm. Suggest correlating with MRI, pancreatic mass protocol COMBINED IMPRESSION: 1. Very slight interval increase in the anterior mediastinal mass 2. There are 2 lesions involving the pancreatic tail likely IPMN lesions. Suggest follow-up MRI Interpreted By: Jason Cruz MD [facility] 08/03/2024 14:51:59 Ct, Abdomen, W/ Contrast : [address] [address] Patient Name: JUSTINO HESS Patient : 1955 Patient Ordering Provider: HECTOR DASILVA EXAM DATE: 03/20/2025 EXAM: CT ABDOMEN WITH CONTRAST CLINICAL INFORMATION: Pain TECHNIQUE: A baseline serum creatinine with eGFR was obtained prior to injection of contrast medium due to the patients risk factors for EDIL. Calculated eGFR at time of exam was [address] images of the abdomen were obtained after injection of 100 mL Omnipaque 350 (1 x 100 mL bottle of [facility] [id number]). None was wasted and discarded. No oral contrast or water was administered to the patient. COMPARISON: None. FINDINGS ON CT ABDOMEN: LOWER THORAX: Lung bases are clear. No obvious cardiac abnormality. UPPER ABDOMINAL ORGANS: Diffuse fatty metamorphosis of the liver is present. No definite liver lesion is found. 4.4 cm mass involving the left kidney. While this is probably cystic but has has a solid component measuring 2.5 cm along the posterior lateral aspect. Right kidney shows a subcentimeter simple cyst. Adrenals unremarkable. The spleen is normal. The pancreas has a cystic mass involving the tail. This measures 1.6 cm. This may be a pseudocyst or possibly IPMN lesion. BOWEL AND MESENTERY: Stomach, small bowel and colon are normal. No mesenteric lymphadenopathy or peritoneal free fluid. RETROPERITONEUM: Aorta, IVC and their branches are patent and normal. No retroperitoneal lymphadenopathy. ABDOMINAL WALL AND SKELETAL STRUCTURES: Normal. IMPRESSION: 1. Indeterminate mass along the left kidney. Neoplasm is not excluded 2. Fatty metamorphosis of the liver 3. Cystic lesion involving the pancreatic tail nonspecific. 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 Procedures Surgical History Date Name Laterality Status Provider Name and Address Organization Details Recorded Time 03/31/20 25 Post Void Residual; Ultrasound completed María Elena Ugarte [facility] 03/31/2025 10:16:32 03/02/20 24 incision and exploration of neck completed ANCELMO LEE MD [address] [place] [address], [phone], [facility] 03/02/2024 14:46:32 Breast Surgery completed [facility] 06/23/2023 11:57:34 Thyroid Surgery completed ANCELMO LEE MD [address] [place] [address], [address], [facility] 03/02/2024 14:37:28 hysterectomy completed Kiera [facility] 06/23/2023 11:58:01 Tonsillectomy completed [facility] 06/23/2023 11:58:12 Imaging Results None [...] Updated DateTime 02/23/2025 165.1 cm 31 kg/m2 87567.18 g Jenny Tai [facility] 02/23/2025 11:28:21 Date Recorded Body height Body mass index (BMI) Body weight Heart rate Systolic And Diastolic Provider Name and Address Organization Details Last Updated DateTime 03/23/2025 165.1 cm 31.5 kg/m2 93408.96 g 65 /min 138/69 mm[Hg] Rosa Tenorio [facility] 03/23/2025 13:42:46 Date Recorded Body height Body mass index (BMI) Body weight Provider Name and Address Organization Details Last Updated DateTime 03/31/2025 165.1 cm 31.5 kg/m2 50833.96 g María Elena Ugarte [facility] 03/31/2025 10:16:07 Date Recorded Body height Body mass index (BMI) Body weight Body temperature Heart rate Systolic And Diastolic Provider Name and Address Organization Details Last Updated DateTime 165.1 cm 30.5 kg/m2 52216.5 g 97.2 [degF] 66 /min 147/76 mm[Hg] Heide Bowman [facility] 13:36:14 Social History Question Answer Notes LastModified by Organizat ion Details LastModified Time Tobacco Smoking Status [facility] 06/23/2023 11:57:20 What Is Your Relationship [...] not available 03/31/2025 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 Family History Relationship Description Onset Age of this Age Resolved Age Notes LastModified by Organization Details LastModified Time Mother Family history of malignant neoplasm [email or web address] Not available 2022 11:56:47 Mother Kidney disease [email or web address] Not available 2024 10:03:25 Father Family history of malignant neoplasm [email or web address] Not available 2022 11:57:04 Unspecified Relation Arthritis [...] SNOMED-CT Code Diagnosis ICD10 Code Diagnosis Note [id number] MD DEE ALEXANDRA [address] [place] [address] 06/23/2023 11:08:57 06/23/2023 13:50:48 Hypercalcemia 35722803 E83.52 Intracrani al meningioma 127555137 D32.0 Primary hyperparathyroidism 27011265 E21.0 [id number] MD DEE ALEXANDRAOLASV IL[address] [place] [address] 07/14/2023 10:14:12 07/14/2023 11:45:17 Primary hyperparathyroidism 39295179 E21.0 Hypercalcemia 12471262 E 83.52 Intracrani al meningioma 701202884 D32.0 History of malignant neoplasm of breast 633694367 Z85.3 History of total thyroidectomy 4329485292 62954 Z90.89 - Benign disease [id number] ANCELMO LEE MD [place] [facility] [address] [place] [address] 07/28/2023 15:54:41 07/29/2023 07:57:25 Primary hyperparathyroidism 41211894 E21.0 Elevated PTH and ionized calciumNM parathyroi d nuclear imaging (07/21/23) = Parathyroi d adenoma on the right side is suspected. There is unusual mediastina l activity. Neck ultrasound and 40 CT also performed Intracrani al meningioma 869768547 D32.0 History of malignant neoplasm of breast 343223022 Z85.3 History of total thyroidectomy 1779394840 45679 Z90.89 - Benign disease 2012 Dr. Gibson Lee Mediastinal mass 4214163 1 R22.2 Could be persistent thymus, residual thyroid tissue, or a benign parathyroi d gland [id number] JASWINDER CARVER APRN [facility] [address] [place] [address] 08/10/2023 13:58:06 08/10/2023 15:04:44 Primary hyperparathyroidism 06131074 E21.0 -Reviewed and discussed last lab from 05/12/23PT H 72.9Ca 10.7GFR 99Potentia l causes of hyperparat hyroidism and hypercalce anton discussed. Explained that the most common cause is primary hyperparat hyroidism. Other causes include: tertiary hyperparat hyroidism, vitamin A or D intoxicati on, sarcoidosi s, calcium of malignancy (solid tumors of lung, head, neck, renal cell, etc), medication s (i.e. thiazide diuretics, vitamin A or D, lithium, excessive use of calcium antacids (TUMS, Rolaids), immobiliza tion, Paget's disease, etc. Based on available informatio n, Ms. Hess is suspected to have primary hyperparat hyroidism. Discussed primary hyperparat hyroidism, etiology, prognosis, evaluation , etc and she was also given a handout to review. Discussed that the only cure for primary hyperparat hyroidism is surgery. Criteria for surgery are as follows:a. Age less than 50 years (no)b. Serum calcium 1 mg/dL above the upper limit of normal (no)c. Declining kidney function or history of kidney stones (no)d. Osteoporos is (no) will obtain last DEXA from outside facility Discussed that clinical observatio n is sometimes recommende d if calcium is only mildly elevated and no significan t complicati ons exist (i.e. does not meet surgical criteria) or risk of surgery outweighs potential benefit. She meets the criteria based on osteoporos is but does not have any other clinical indication for surgery at this time. Advised to drink plenty of fluids and no prolonged bedrest. No dietary calcium restrictio ns. Advised that she can continue vitamin D3, 2000 IU daily will check 24 hour urine for calcium and creatinine . f/u in 4 months [id number] JASWINDER CARVER APRN [facility] [address] [place] [address] 12/09/2023 13:07:51 12/09/2023 14:46:15 Primary hyperparathyroidism 54483280 E21.0 -Reviewed and discussed last lab from 05/12/23PT H 72.9Ca 10.7GFR 99Potentia l causes of hyperparat hyroidism and hypercalce anton discussed. Explained that the most common cause is primary hyperparat hyroidism. Other causes include: tertiary hyperparat hyroidism, vitamin A or D intoxicati on, sarcoidosi s, calcium of malignancy (solid tumors of lung, head, neck, renal cell, etc), medication s (i.e. thiazide diuretics, vitamin A or D, lithium, excessive use of calcium antacids (TUMS, Rolaids), immobiliza tion, Paget's disease, etc. Based on available informatio n, Ms. Hess is suspected to have primary hyperparat hyroidism. Discussed primary hyperparat hyroidism, etiology, prognosis, evaluation , etc and she was also given a handout to review. Discussed that the only cure for primary hyperparat hyroidism is surgery. Criteria for surgery are as follows:a. Age less than 50 years (no)b. Serum calcium 1 mg/dL above the upper limit of normal (no)c. Declining kidney function or history of kidney stones (no)d. Osteoporos is (no) will obtain last DEXA from outside facility Discussed that clinical observatio n is sometimes recommende d if calcium is only mildly elevated and no significan t complicati ons exist (i.e. does not meet surgical criteria) or risk of surgery outweighs potential benefit. Advised to drink plenty of fluids and no prolonged bedrest. No dietary calcium restrictio ns. Advised that she can continue vitamin D3, 2000 IU daily patient will make appt with Dr Lee about surgeryf/u in 6 months [id number] MD DEE ALEX[address]A RD [address] [place] [address] 01/21/2024 14:39:38 01/21/2024 15:45:28 Primary hyperparathyroidism 91045073 E21.0 Elevated PTH and ionized calciumNM parathyroi d nuclear imaging (07/21/23) = Parathyroi d adenoma on the right side is suspected. There is unusual mediastina l activity. Neck ultrasound and 40 CT also performed Mediastinal mass 1085639 1 R22.2 Could be persistent thymus, residual thyroid tissue, or a benign parathyroi d gland Intracrani al meningioma [id number] D32.0 History of malignant neoplasm of breast 851353896 Z85.3 History of total thyroidectomy [id number] 87744 Z90.89 - Benign disease 2012 Dr. Gibson Lee [id number] ANCELMO LEE MD SURGERY SCHEDULE [address] [place] [address] 03/02/2024 11:12:59 03/02/2024 11:13:47 Postoperative pain [id number] G89.18 [id number] MD DEE ALEXANDRA RD [address] [place] [address] 03/03/2024 13:14:05 03/03/2024 13:51:34 Primary hyperparathyroidism 79992378 E21.0 Elevated PTH and ionized calciumNM parathyroi d nuclear imaging (07/21/23) = Parathyroi d adenoma on the right side is suspected. There is unusual mediastina l activity. Neck ultrasound and 40 CT also performed 03/02/24 - bilateral neck exploratio n For parathyroi d adenoma Intracrani al meningioma 436996197 D32.0 History of malignant neoplasm of breast 883450009 Z85.3 History of total thyroidectomy 8589623612 86638 Z90.89 - Benign disease 2012 Dr. Gibson Lee Postoperative visit 1836 64567 Z48.89 03/02/24 - bilateral neck exploratio n For parathyroi d adenoma [id number] ANCELMO LEE MD [place] [facility] [address] [place] [address] 07/07/2024 13:06:11 07/07/2024 14:54:27 Primary hyperparathyroidism 90876747 E21.0 Persistent ly elevated PTH and ionized calciumNM parathyroi d nuclear imaging (07/21/23) = Parathyroi d adenoma on the right side is suspected. There is unusual mediastina l activity. Neck ultrasound and 40 CT also performed 03/02/24 - bilateral neck exploratio n For parathyroi d adenoma Postoperative visit 1836 60536 Z48.89 03/02/24 - bilateral neck exploratio n For parathyroi d adenoma Intracrani al meningioma 951796143 D32.0 History of malignant neoplasm of breast 344424880 Z85.3 History of total thyroidectomy 2538518032 05864 Z90.89 - Benign disease 2012 Dr. Gibson Lee [id number] BERE BANERJEE MD HEART [address] [place] [address] 07/19/2024 12:10:35 07/19/2024 12:43:57 Pre-surgery testing [id number] Z01.89 [id number] HECTOR DASILVA MD GENERAL SURGERY [address] [place] [address] 02/23/2025 11:14:54 02/28/2025 09:54:59 Left upper quadrant pain 639479219 R10.12 69-year-ol d female seen for evaluation with concern for abdominal pain. Reportedly history of cholelithi asis. Evidently this was on outside facility imaging she is uncertain from where or when. Notes more LUQ pain. Denies associatio n with foods. Will plan for RUQ US to update imaging and eval the lennie sanchez May consider CT as well given she has not LUQ pain. [id number] HECTOR DASILVA MD GENERAL SURGERY [place] [address] [place] [address] 03/23/2025 13:30:49 03/27/2025 10:11:55 Left upper quadrant pain 322073937 R10.12 69-year-ol d female seen for evaluation with concern for abdominal pain. Reportedly history of cholelithi asis. Evidently this was on outside facility imaging she is uncertain from where or when. Notes more LUQ pain. Denies associatio n with foods. Will plan for RUQ US to update imaging and eval the lennie sanchez May consider CT as well given she [...] Would plan for surveillan ce for now. [id number] ANGEL TORRES APRN [facility] [address] [place] [address] 03/31/2025 09:56:30 03/31/2025 10:54:15 Renal mass [id number] N28.89 If the lesion is deemed benign, periodic imaging may be recommende d to monitor for any changes. Urinary incontinence 165 754789 R32 The urinary incontinen ce was acknowledg ed, but specific management strategies were not detailed during the visit. Cyst of pancreas 5060812 0 K86.2 Health Concerns Section Related Observation LastModified by Organization Detai ls LastModified Time None Recorded Concern Status LastModified by Organization Details LastModified Time None Recorded Advance Directives Directive None Recorded Payers Insurance Date Sequence Insurance Name Policy Number Policy Haley Covered Member ID Haley Member ID Guarantor Name 07/10/2024 2 UNSPECIFIED REMIT PAYOR Justino Hess 03/07/2025 1 [place]ICARE[place]ICARE[place] Justino Hess [id number] Justino Hess 03/30/2025 2 [facility] (MEDICARE SUPPLEMENT) Justino Hess [id number] Justino Hess Notes Date Note Type Note Provider Name and Address Organization Details Recorded Time 4 text/html Justino is here to follow up on her bilateral neck exploration for parathyroid adenoma performed on 03/02/24 with lab results. An abnormal parathyroid gland was identified from the biopsy on the left side of her neck - pathology came back as mildly hypercellular parathyroid tissue. Her PTH on 03/02/24 was high. Her PTH and Calcium tested on 03/04/24 at [facility] was also elevated.Imaging of her mediastinum revealed a 2.9 cm enhancing lesion on her scan from last year. ANCELMO LEE MD [address] [place] [address], [phone], [facility] 07/07/2024 18:38:11 5 text/html 69-year-old female referred for evaluation with concern for cholelithiasis. [...] question of a bulge. HECTOR DASILVA MD [address] [place] [address], [phone], [facility] 02/23/2025 11:55:39 5 text/html 69-year-old female referred for evaluation with concern for cholelithiasis. [...] 1.6 cm IPMN HECTOR DASILVA MD [address] [place], [address], [facility] 03/23/2025 13:54:49 text/html 69-year-old female presenting with a renal [...] has never been a smoker. ANGEL TORRES, MICAELA [address] [place], [address], [facility] 03/31/2025 15:20:35 OBGyn Episode No OBEpisode recorded.
--- OUTSIDE RECORDS SUMMARY | 2025-04-12 08:08 | XMS_ITS | Clinical Summary ---
Author Organization [facility] Address [address] [place] [address] Phone Care Team Providers Care Technical Aide Name Role Phone Unavailable Primary Care Provider Unavailabl e Allergies No known active allergies Medications famotidine in sodium chloride 0.9 %Indications:Patrick quency of urination Active famotidine (PEPCID) 20 mg Oral TabletIndication s:Frequency of urination Take 20 mg by mouth. Active HYDROcodone-acet aminophen (NORCO) 5-325 mg Oral TabletIndication s:Frequency of urination Take 1 Tablet by mouth every 6 hours as needed. Active LEVOthyroxine (SYNTHROID) 75 mcg Oral TabletIndication s:Frequency of urination Take 1 Tablet by mouth daily. 06/19/2021 Active oxybutynin (DITROPAN-XL) 10 mg Oral Tablet Extended Rel 24 hrIndications:Ov eractive bladder Take 1 Tablet by mouth daily. 30 Tablet 6 07/15/2024 Active Surgical History Surgery Date Site/Laterality Comments HYSTERECTOMY SALPINGO-OOPHORECTOMY Bilateral Social History Tobacco Use Types Packs/Day Years Used Date Smoking Tobacco: Never Smokeless Tobacco: Never Tobacco Cessation:Counseling Given: No Alcohol Use Standard Drinks/Week Comments Never 0 (1 standard drink = 0.6 oz pur e alcohol) Sexually Active Control Partners Comments Not Currently Male Comments No Sex and Gender Information Value Date Recorded Sex Assigned at Not on file Legal Sex Female 2:51 PM EDT Gender Identity Not on file Sexual Orientation Not on file Obstetrics History Para Term AB IAB SAB Ectopic Multiple Livin g Live Births 2 1 Date Outcome GA Total Labor Labor/2nd/3rd Weight Sex Type Anes PTL Janine A1 A5 Name Clin Para Vag-Spo nt Last Filed Vital Signs Vital Sign Reading Time Taken Comments Blood Pressure - - Pulse 56 07/15/2024 10:33 AM EDT Temperature - - Respiratory Rate - - Oxygen Saturation 99% 07/15/2024 10:33 AM EDT Inhaled Oxygen Concentration - - Weight 84.2 kg (185 lb 9.6 oz) 07/15/2024 10:33 AM EDT Height - - Body Mass Index - - Plan of Treatment Health Maintenance Due Date Last Done Comments Wellness Exam Medicare 1958 Hepatitis C Screening 1971 Breast Cancer Screening 1993 DTaP/TDaP/Td (1 - Tdap) 12/09/1996 12/08/1996 Cologuard 1998 Colon Cancer Screening 1998 Colonoscopy 1998 FIT 1998 Sigmoidoscopy 1998 Virtual Colonography 1998 Pneumococcal Vaccine 50+ (1 of 1 - PCV) 2003 Zoster (1 of 2) 2003 Bone Density Screening 2018 COVID-19 Vaccine ( season) 2024 01/14/2023, 06/25/2022, 02/14/2022, Additional history exists Influenza Vaccine (#1) 2025 09/08/2023 Hepatitis B Vaccine Aged Out No longe r eligible based on patient's age to complete this topic Meningococcal B Vaccine Aged Out No l onger eligible based on patient's age to complete this topic Insurance MEDICARE [place] PART A AND B [employer] MEDICARE [place] PART A AND B [employer]
--- NOTE | 2025-04-12 08:15 | MR_ITS ---
FINAL REPORT CLINICAL HISTORY: CYSTIC LESION AT PANCREATIC TAIL. history of breast cancer in 2006 COMPARISON: None FINDINGS: Multiplanar MR imaging of the abdomen was performed without and with contrast. The liver is homogeneous. The gallbladder is present. The spleen is unremarkable. There is a rounded cystic lesion in the tail of the pancreas measuring 1.4 cm in diameter. On pre and post infusion images this does not appear to enhance. The adrenal glands are unremarkable. There is a cystic lesion in the anterior left kidney measuring 3.7 cm in diameter with a questionable enhancing mural nodule measuring 2.0 x 1.5 cm, well seen on image 61 of series 15. The right kidney is unremarkable. IMPRESSION: 1.4 cm cyst tail of the pancreas, likely benign epithelial cyst. Follow-up in 2 years recommended to ensure stability. Complex cystic mass 3.7 cm in the left kidney. There appears to be an enhancing mural nodule present. Cystic neoplasm not excluded. Urologic evaluation highly recommended. Reviewed, Interpreted and Dictated by Jay Medina MD Transcribed by Sandee Julien Authenticated and [facility]
[2025-04-12] MEDS: SODIUM CHLORIDE 0.9% 10ML SYR (RAD ONLY) 10 ML IV (09:04)
[2025-04-12] MEDS: GADOTERIDOL INJ 20ML SYRINGE 17 ML IV (09:05)
[2025-04-12] MEDS: 0.9 % SODIUM CHLORIDE 50 ML VIAL 20 ML IV (09:05)
== END 2025-04-12 23:59 | disposition home or self-care (01) ==
LOC: RAD 08:05
PROVIDERS: PCP Internal Medicine; Visit Provider Internal Medicine
DX: K86.2 Cyst of pancreas (principal); N28.1 Cyst of kidney, acquired; R93.5 Abnormal findings on diagnostic imaging of other abdominal regions, including retroperitoneum
CPT/HCPCS: 74183; A9576

== ENCOUNTER 2025-06-07 11:49 | Outpatient (CLI) | payer MEDICARE, OTHER, SELFPAY ==
--- OUTSIDE RECORDS SUMMARY | 2025-04-13 10:32 | XMS_ITS | Encounter Summary ---
Author Organization [facility] Address [address] [place] [address] Care Team Providers Care Stock Unloader Name Role Phone Nito Lr MD Primary Care Provider [phone] Isiah Graff DO Unavailable [phone] Reason for Referral * Imaging (Routine) - Closed Specialty Diagnoses / Procedures Referred By Mela garcia Referred To Contact Radiology Diagnoses Mediastinal mass Procedures CT Chest wo IV Contrast Isiah Graff, DO [address] [address] Phone: tel: fax: Referral ID Status Reason Start Date Expiration Date Visits Re quested Visits Authorized [id number] Closed 09/22/2024 03/24/2026 1 1 Reason for Visit * Imaging (Routine) - Closed Specialty Diagnoses / Procedures Referred By Mela garcia Referred To Contact Radiology Diagnoses Mediastinal mass Procedures CT Chest wo IV Contrast Isiah Graff, DO [address] [address] Phone: tel: fax: Referral ID Status Reason Start Date Expiration Date Visits Re quested Visits Authorized [id number] Closed 09/22/2024 03/24/2026 1 1 Encounter Details Date Type Department Care Team (Latest Contact Info) Description 04/13/2025 10:32 AM EDT - 04/13/2025 11:59 PM EDT Hospital Encounter [facility] [address] [place] [address] Mediastinal mass Discharge Disposition: Home or Self Care Social History Tobacco Use Types Packs/Day Years [...] any time in the past 12 m [facility], were you homeless or living in a fci (including now)? No 09/06/2024 Utilities Answer Date Recorded In the past 12 months has th e [employer], [employer], oil, or [employer] threatened to shut off services in your home? No 09/06/2024 Comments Unknown Sex and Gender Information Value Date Recorded Sex Assigned at Not on file Legal Sex Female 6:06 PM EDT Gender Identity Not on file Sexual Orientation Not on file documented as of this encounter Medications at Time of Discharge atorvastatin (Lipitor) 20 MG tablet Take 1 tablet (20 mg) by mouth 1 (one) time each day. cholecalciferol (Vitamin D-3) 50 MCG (2000 UT) capsule Take 1 capsule (2,000 Units) by mouth 1 (one) time each day. famotidine (Pepcid) 20 MG tablet Take 1 tablet (20 mg) by mouth every night. levothyroxine (Synthroid, Levoxyl) 75 MCG tablet Take 1 tablet (75 mcg) by mouth 1 (one) time each day. 06/01/2024 documented as of this encounter Plan of Treatment Upcoming Encounters Date Type Department Care Team (Late st Contact Info) Description 10/12/2025 9:30 AM EST Appointment [facility] [address] [place] [address] 10/12/2025 10:30 AM EST Office Visit [facility] [address] [facility], [address]nd [place] [address] Isiah Graff, DO [address] [address] documented as of this encounter Procedures Procedure Name Priority Date/Time Associated Diagnosis Comments CT CHEST WO IV CONTRAST Routine 04/13/2025 10:52 AM EDT Mediastinal mass documented in this encounter Results * CT Chest wo IV Contrast (04/13/2025 10:52 AM EDT) Anatomical Region Laterality Modality Chest Computed Tomogra phy Impressions 04/13/2025 11:31 AM EDT 1. Post anterior mediastinal thymoma resection. No mediastinal or hilar lymphadenopathy. No pleural nodularity. 2. Innumerable bilateral sub-6 mm solid pulmonary nodules are very similar in number and size dating back to September 2024. Recommend a follow-up chest CT in 6-12 months to ensure longer term stability. CRITICAL RESULT: No. COMMUNICATION: Per this written report. By electronically signing this report, I, the attending physician, attest that I have personally reviewed the images/data for the above examination(s) and agree with the final edited report. Drafted by Dez Morton on 04/13/2025 11:01 AM Final report signed by Adriel Isidro MD on 04/13/2025 11:31 AM Narrative 04/13/2025 11:31 AM EDT CLINICAL INDICATION: Post thymoma resection September 2024. TECHNIQUE: Multiple CT helical images were obtained from thoracic inlet through upper abdomen without administration of IV contrast. The imaging protocol used in this examination was optimized to achieve diagnostic quality with the lowest possible radiation dose in accordance with the principles of ALARA (As Low As Reasonably Achievable). COMPARISON: Outside CT chest 09/22/2024. FINDINGS: Mediastinum and Pleura: Post anterior mediastinal thymoma resection. No mediastinal or hilar adenopathy. No pleural or pericardial effusion. No pleural nodularity. Lungs: Trachea and main bronchi are patent. No bronchiectasis or bronchial wall thickening. Innumerable bilateral diffuse sub-6 mm solid pulmonary nodules with a centrilobular distribution. Nodules are very similar in number and size dating back to September 2024, accounting for differences in slice thickness. Reference right upper lobe (series 4/image 27) and left lower lobe (series 4/image 242). Right lower lobe calcified granuloma. Upper Abdomen: Hepatic steatosis. Musculoskeletal: Chronic appearing T11 compression fracture with approximately 25% vertebral body height loss. Right mastectomy. Procedure Note Adriel Isidro MD - 04/13/2025 CLINICAL INDICATION: Post thymoma resection September 2024. TECHNIQUE: Multiple CT helical images were obtained from thoracic inlet through upperabdomen without administration of IV contrast. The imaging protocol used in this examination was optimized to achievediagnostic quality with the lowest possible radiation dose in accordancewith the principles of ALARA (As Low As Reasonably Achievable). COMPARISON: Outside CT chest 09/22/2024. FINDINGS: Mediastinum and Pleura: Post anterior mediastinal thymoma resection. Nomediastinal or hilar adenopathy. No pleural or pericardial effusion. Nopleural nodularity. Lungs: Trachea and main bronchi are patent. No bronchiectasis or bronchialwall thickening. Innumerable bilateral diffuse sub-6 mm solid pulmonarynodules with a centrilobular distribution. Nodules are very similar innumber and size dating back to September 2024, accounting for differencesin slice thickness. Reference right upper lobe (series 4/image 27) andleft lower lobe (series 4/image 242). Right lower lobe calcifiedgranuloma. Upper Abdomen: Hepatic steatosis. Musculoskeletal: Chronic appearing T11 compression fracture withapproximately 25% vertebral body height loss. Right mastectomy. IMPRESSION: 1. Post anterior mediastinal thymoma resection. No mediastinal or hilarlymphadenopathy. No pleural nodularity. 2. Innumerable bilateral sub-6 mm solid pulmonary nodules are very similarin number and size dating back to September 2024. Recommend a follow-upchest CT in 6-12 months to ensure longer term stability. CRITICAL RESULT: No. COMMUNICATION: Per this written report. By electronically signing this report, I, the attending physician, attestthat I have personally reviewed the images/data for the aboveexamination(s) and agree with the final edited report. Drafted by Dez Morton on 04/13/2025 11:01 AM Final report signed by Adriel Isidro MD on 04/13/2025 11:31 AM Isiah Graff DO IMG CT PROCEDURES Final Resul t documented in this encounter Visit Diagnoses Diagnosis Mediastinal mass Swelling, mass, or lump in chest documented in this encounter Additional Health Concerns Assessment Noted Time A fall risk assessment has been complete d for the patient 04/13/2025 1:03 PM EDT A Body Mass Index follow-up plan has been documented for the patient 04/14/2025 11:30 AM EDT documented as of this encounter Care Teams Stock Unloader Relationship Specialty Start Date End Date Nito Lr MD [address] [place] [address] [address] [place] [address] PCP - General 08/11/24 Isiah Graff DO [address] [place] [address] Surgeon Cardiothoracic Surgery 08/11/24 documented as of this encounter
--- OUTSIDE RECORDS SUMMARY | 2025-04-13 13:00 | XMS_ITS | Encounter Summary ---
Author Organization [facility] Address [address] [id number] Care Team Providers Care Resident Intern Name Role Phone Nito Lr MD Primary Care Provider [phone] Isiah Graff DO Unavailable [phone] Reason for Referral * Imaging (Routine) - Pending Review Specialty Diagnoses / Procedures Referred By Mela garcia Referred To Contact Radiology Diagnoses Mediastinal mass Procedures CT Chest wo IV Contrast Isiah Graff, DO [address] [address] Phone: tel: fax: Referral ID Status Reason Start Date Expiration Date V isits Requested Visits Authorized [id number] Pending Review 04/13/2025 10/13/2026 1 1 Reason for Visit * Reason Comments Follow-up Encounter Details Date Type Department Care Team (Late st Contact Info) Description 04/13/2025 1:00 PM EDT Office Visit Pav [facility] Head, Neck & Respiratory 800 [facility], 2nd [place] [address] Isiah Graff, [address] [address] Mediastinal mass Social History Tobacco Use Types Packs/Day Years [...] any time in the past 12 m [facility], were you homeless or living in a [facility] (including now)? No 09/06/2024 Utilities Answer Date [...] on file documented as of this encounter Last Filed Vital Signs Vital Sign Reading Time Taken Comments Blood Pressure 121/78 04/13/2025 1:01 PM EDT Pulse 97 04/13/2025 1:01 PM EDT Temperature 36.6 C (97.8 F) 04/13/2025 1:01 PM EDT Respiratory Rate 18 04/13/2025 1:01 PM EDT Oxygen Saturation 96% 04/13/2025 1:01 PM EDT Inhaled Oxygen Concentration - - Weight 84 kg (185 lb 3 oz) 04/13/2025 1:01 PM ED T Height - - Body Mass Index 30.82 08/30/2024 1:05 PM EST documented in this encounter Miscellaneous Notes * Progress Notes - Erendira Burkett MD - 04/13/2025 1:00 PM EDT Images from the original note were not included. [facility] Department of Surgery Section of Thoracic Surgery Outpatient Clinic Note Diagnosis: Thymoma Procedure: Bronch, Left RVATS resection of anterior mediastinal mass 09/05/24 Pathology: Thymoma Interval History: Valorie Alvarez is a 69 y.o. female with primary hyperparathyroidism (s/p bilateral neck exploration and adenoma removal 02/2024), prior total thyroidectomy (benign pathology), intracranial meningioma (surveillance MRI) and breast cancer s/p right mastectomy presenting s/p Bronch, Left RVATS resection of anterior mediastinal mass 09/05/24. She is doing well at this time. Has occasional minor discomfort along the left chest. Denies shortness of breath. ROS: General: no fevers or chills, no heat or cold intolerance, no subjective weight loss HEENT: no changes in vision, no sore throat, no changes in hearing, no tinnitus, no nasal drainage CV: no chest pain, no palpitations, no lightheadedness, no PND, no orthopnea, no LE swelling, no claudication Pulm: no shortness of breath, no cough, no hemoptysis GI: no nausea, no vomiting, no abdominal pain, no constipation, no diarrhea, no melenal, no hematochezia, no dysphagia, no heartburn Skin: no rash Neuro: no numbness, no tingling, no headache, no difficulties with speech, no gait disturbance Heme: no easy bruising, no bleeding from the gums Psych: no depression or anxiety Physical exam: Visit Vitals BP 121/78 (BP Location: Left arm) Pulse 97 Temp 36.6 ??C (97.8 ??F) (Oral) Wt 84 kg (185 lb 3 oz) SpO2 96% BMI 30.82 kg/m?? General: alert and oriented, appropriate Lungs: Normal effort, no wheezes or rhonchi Heart: RRR, no murmurs Abdomen: soft NT/ND, normal bowel sounds Lymph nodes: no palpable supraclavicular or cervical adenopathy Extremities: no peripheral edema Psychiatric: oriented to person/place/time and normal mood/affect Incisions: well healed, no palpable abnormalities Imaging: CT Chest without contrast : 04/13/2025 IMPRESSION: 1. Post anterior mediastinal thymoma resection. No mediastinal or hilar lymphadenopathy. No pleuralnodularity. 2. Innumerable bilateral sub-6 mm solid pulmonary nodules are very similar in number and size dating back to September 2024. Recommend a follow-up chest CT in 6-12 months to ensure longer term stability. Additional Testing: None Assessment and Plan: Valorie Alvarez is a 69 y.o. female s/p Bronch, Left RVATS resection of anterior mediastinal mass that was confirmed to thymoma. She is recovering well at this time. Stable interval CT chest with nomediastinal or hilar lymphadenopathy. Imaging showed multiple bilateral sub 6 mm solid pulmonary nod ules that are very similar in size from prior imaging, communicated to patient that this warrants no concern, just routine follow up with serial imaging. Follow up in 6 months at our clinic with repeat imaging. Anika Burkett, PGY1 Thoracic Surgery Cosigned by Isiah Graff DO at 04/14/2025 11:30 AM EDT Associated attestation - Isiah Graff DO - 04/14/2025 11:30 AM EDT I saw and evaluated the patient with the resident/fellow. I discussed the case with the resident/fellow and agree with the findings and plan as documented. documented in this encounter Plan of Treatment Upcoming Encounters Date Type Department Care Team (Late st Contact Info) Description 10/12/2025 9:30 AM EST Appointment P[facility] G Radiology [address] [place] [address] 10/12/2025 10:30 AM EST Office Visit Pav [facility] Head, Neck & Respiratory [address] , [address] [place] [address] Isiah Graff, [address] [phone] Scheduled Orders Name Type Priority Associated Diagnoses Orde r Schedule CT Chest wo IV Contrast Imaging Routine Mediastinal mass Expected: 10/14/2025 (Approximate), Expires: 10/15/2026 documented as of this encounter Visit Diagnoses Diagnosis Mediastinal mass Swelling, mass, or lump in chest documented in this encounter Additional Health Concerns Assessment Noted Time A fall risk assessment has been complete d for the patient 04/13/2025 1:03 PM EDT A Body Mass Index follow-up plan has been documented for the patient 04/14/2025 11:30 AM EDT documented as of this encounter Care Teams Resident Intern Relationship Specialty Start Date End Date Nito Lr MD [address] [place], [place] [address] [address] [place] [address] PCP - General 08/11/24 Isiah Graff, [address] [phone] Surgeon Cardiothoracic Surgery 08/11/24 documented as of this encounter
--- NOTE | 2025-06-07 11:54 | XR_ITS ---
FINAL REPORT CLINICAL HISTORY: Pain of Left Foot FINDINGS: LEFT FOOT Three views were obtained. There is no fracture or dislocation. The joint spaces appear normal. No soft tissue abnormality is identified. There is a moderate plantar spur. IMPRESSION: Moderate plantar spur. Reviewed, Interpreted and Dictated by Jay Medina MD Transcribed by Kati Tejada Authenticated and [facility]
--- OUTSIDE RECORDS SUMMARY | 2025-06-07 12:08 | XMS_ITS | Clinical Summary ---
Author Organization [facility] Address [address] [place] [address] Care Team Providers Care Recreational Therapist Name Role Phone Nito Lr MD Primary Care Provider [phone] Isiah Graff DO Unavailable [phone] Allergies No known active allergies Medications famotidine [...] Encounters Date Type Department Care Team Description 04/13/2025 1:00 PM EDT Office Visit [facility] Head[facility] Neck & Respiratory [address] , [address] [place] [address] Isiah Graff, DO Mediastinal mass 04/13/2025 10:32 AM EDT - 04/13/2025 11:59 PM EDT Hospital Encounter [facility] [address], [address]nd [place] [address] Mediastinal mass Discharge Disposition: Home or Self Care 04/13/2025 Travel 03/24/2025 Telephone Pav [facility] Head[facility] Neck [facility] Respiratory [address], [address] [place] [address] Isiah Graff, DO from Last 3 Months [...] any time in the past 12 m [facility], were you homeless or living in a penitentiary (including now)? No 09/06/2024 Utilities Answer Date Recorded In the past 12 months has e electric, gas, oil, or water company [...] oz) 04/13/2025 1:01 PM ED T Height 165.1 cm (5' 5 ) 08/30/2024 1:05 PM EST Body Mass Index 30.82 08/30/2024 1:05 PM EST Plan of Treatment Upcoming Encounters Date Type Department Care Team (Late st Contact Info) Description 10/12/2025 9:30 AM EST Appointment [facility] G Radiology [address] [place] [address] 10/12/2025 10:30 AM EST Office Visit [facility] Head[facility] Neck & Respiratory [address] , 2[address] [place] [address] Isiah Graff, DO [address] [place] [address] Health Maintenance Due Date Last Done Comments [...] - Risk 60-74 years 1-dose series) 2013 [id number] Vaccine (8 - Pfizer risk 2023- season) 2025 08/12/2024, 01/14/2023, 06/25/2022, Additional history exists [facility]- SDOH Screenings 03/07/2025 [facility]-Adult SDOH Screenings 03/07/2025 09/06/2024 [facility]-Influenza Vaccine (#1) 2025 07/26/2024, [facility]-Pneumococcal Vaccine: 50+ Years Completed 08/19/2024 [facility]-Obesity Intervention Completed 025, 09/22/2024, 08/11/2024, Additional history exists HPV Vaccines Aged [...] on patient's age to complete this topic Procedures Procedure Name Priority Date/Time Associated Diagnosis Comments CT CHEST WO IV CONTRAST Routine 04/13/2025 10:52 AM EDT Mediastinal mass from Last 3 Months Results * CT Chest wo IV Contrast [...] DO IMG CT PROCEDURES Final Resul t from Last 3 Months Insurance MEDICARE [facility] Advance Directives Documents on File Type Date Recorded 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 Yes Care Teams Recreational Therapist Relationship Specialty Start Date End Date Nito Lr MD [address] [place] [address] [address] [place] [address] PCP - General 08/11/24 Isiah Graff DO [address] [place] [address] Surgeon Cardiothoracic Surgery 08/11/24
--- OUTSIDE RECORDS SUMMARY | 2025-06-07 12:08 | XMS_ITS | Encounter Summary ---
Author Organization [facility] Address [address] [place] [address] Care Team Providers Care Weir Fisher Name Role Phone Shannon Wiley George HINOJOSA Primary Care Provider [phone] Nito Lr MD Primary Care Provider [phone] Isiah Graff DO Unavailable [phone] Encounter Details Date Type Department Care Team (Late st Contact Info) Description 10/17/2021 Orders Only External Location [address] [place] [address] Bryon Griffith MD [address] [place] [address] Social History Tobacco Use Types Packs/Day Years Used Date Smoking Tobacco: Never Assessed Comments Unknown Sex and Gender Information Value Date Recorded Sex Assigned at Not on file Legal Sex Female 6:06 PM EDT Gender Identity Not on file Sexual Orientation Not on file documented as of this encounter Plan of Treatment Upcoming Encounters Date Type Department Care Team (Late Contact Info) Description 10/12/2025 9:30 AM EST Appointment [facility] G Radiology [address] [place] [address] 10/12/2025 10:30 AM EST Office Visit Pav CC Head, Neck & Respiratory 800 [facility], 2nd [place] [address] Isiah Graff, DO 800 [facility] 1[address] [place] [address] documented as of this encounter Procedures Procedure [...] on filedocumented in this encounter Care Teams Weir Fisher Relationship Specialty Start Date End Date Shannon Wiley APRN [facility] [place] [address] PCP - General 02/15/21 08/10/24 Nito Lr MD [facility] [address] [place] [address] PCP - General 08/11/24 Isiah Graff DO [address] [address] Surgeon Cardiothoracic Surgery 08/11/24 documented as of this encounter
--- OUTSIDE RECORDS SUMMARY | 2025-06-07 12:08 | XMS_ITS | Encounter Summary ---
Author Organization [facility] Address [address] [place] [address] Care Team Providers Care Cannon Pinion Adjuster Name Role Phone Saurabh Shannon Vaqzuez APRN Primary Care Provider [phone] Nito Lr MD Primary Care Provider [phone] Isiah Graff DO Unavailable [phone] Encounter Details Date Type Department Care Team (Late st Contact Info) Description 07/10/2023 Orders Only External Location 800 [place] [address] Provider, External Social History Tobacco Use Types [...] EST Appointment [facility] Radiology [address] [place] [address] 10/12/2025 10:30 AM EST Office Visit Pav [facility] Head, Neck & Respiratory [address] , [address] [place] [address] Isiah Graff, DO 800 [facility] [address]st [place] [address] documented as of this encounter Procedures Procedure [...] on filedocumented in this encounter Care Teams Cannon Pinion Adjuster Relationship Specialty Start Date End Date Shannon Wiley APRN [address] [place] [address] PCP - General 02/15/21 08/10/24 Nito Lr MD [address] [facility] [address] [place] [address] PCP - General 08/11/24 Isiah Graff DO [address] [address] Surgeon Cardiothoracic Surgery 08/11/24 documented as of this encounter
--- OUTSIDE RECORDS SUMMARY | 2025-06-07 12:08 | XMS_ITS | Encounter Summary ---
Author Organization [facility] Address [address] [place] [address] Care Team Providers Care Mountain Guide Name Role Phone Saurabh Shannon Vazquez APRN Primary Care Provider [phone] Nito Lr MD Primary Care Provider [phone] Isiah Graff DO Unavailable [phone] Encounter Details Date Type Department Care Team (Late st Contact Info) Description 07/24/2023 Orders Only External Location 800 [place] [address] Provider, External Social History Tobacco Use Types [...] EST Appointment [facility] Radiology [address] [place] [address] 10/12/2025 10:30 AM EST Office Visit Pav [facility] Head, Neck & Respiratory [address] , [address] [place] [address] Isiah Graff, DO 800 [facility] [address] [place] [address] documented as of this encounter Procedures Procedure [...] on filedocumented in this encounter Care Teams Mountain Guide Relationship Specialty Start Date End Date Shannon Wiley APRN [address] [place] [address] PCP - General 02/15/21 08/10/24 Nito Lr MD 1210 [facility] [address] [place] [address] PCP - General 08/11/24 Isiah Graff DO [address] [address] Surgeon Cardiothoracic Surgery 08/11/24 documented as of this encounter
--- OUTSIDE RECORDS SUMMARY | 2025-06-07 12:08 | XMS_ITS | Encounter Summary ---
Author Organization [facility] Address [address] [place] [address] Care Team Providers Care Pool Nurse Name Role Phone Shannon Wiley George HINOJOSA Primary Care Provider [phone] Nito Lr MD Primary Care Provider [phone] Isiah Graff DO Unavailable [phone] Encounter Details Date Type Department Care Team (Late st Contact Info) Description 06/19/2023 Orders Only External Location 800 [place] [address] Bryon Griffith MD [address] [place] [address] Social History Tobacco Use Types Packs/Day Years [...] EST Appointment [facility] G Radiology [address] [place] [address] 10/12/2025 10:30 AM EST Office Visit Pav CC Head, Neck & Respiratory 800 [facility], 2nd [place] [address] Isiah Graff, DO 800 [facility] 1[address] [place] [address] documented as of this encounter Procedures Procedure Name Priority Date/Time Associated Diagnosis Comments MR OUTSIDE IMAGES 06/19/2023 11:44 AM EDT documented in this encounter Results * MR transfer of outside films (06/19/2023 11:44 AM EDT) Anatomical Region Laterality Modality Magnetic Resonan ce 06/19/2023 11:4 4 AM EDT Bryon Griffith MD IMG MRI PROCEDURES Final Resu lt documented in this encounter Visit Diagnoses Not on filedocumented in this encounter Care Teams Pool Nurse Relationship Specialty Start Date End Date Shannon Wiley APRN [facility] [place] [address] PCP - General 02/15/21 08/10/24 Nito Lr MD [facility] [address] [place] [address] PCP - General 08/11/24 Isiah Graff DO [address] [address] Surgeon Cardiothoracic Surgery 08/11/24 documented as of this encounter
--- OUTSIDE RECORDS SUMMARY | 2025-06-07 12:08 | XMS_ITS | Clinical Summary ---
Author Organization [facility] Address [address] [place] [address] Phone Care Team Providers Care Medical Office Scheduler Name Role Phone Unavailable Primary Care Provider [...] Density Screening 2018 COVID-19 Vaccine ( season) 2025 01/14/2023, 06/25/2022, 02/14/2022, Additional history exists Influenza Vaccine (#1) 2025 09/08/2023 Hepatitis B Vaccine Aged Out No longe r eligible based on patient's age to complete this topic Meningococcal B Vaccine Aged Out No l onger eligible based on patient's age to complete this topic Insurance MEDICARE [place] A [place] B [employer] [place] [employer]
--- OUTSIDE RECORDS SUMMARY | 2025-06-07 12:08 | XMS_ITS | Encounter Summary ---
Author Organization [facility] Address [address] [place] [address] Care Team Providers Care Seed Analysis Laboratory Assistant Name Role Phone Shannon Wiley George HINOJOSA Primary Care Provider [phone] Nito Lr MD Primary Care Provider [phone] Isiah Graff DO Unavailable [phone] Encounter Details Date Type Department Care Team (Late st Contact Info) Description 07/02/2022 Orders Only External Location [address] [place] [address] Bryon Griffith MD [address] [place] [address] Social History Tobacco Use Types Packs/Day Years [...] EST Appointment [facility] Radiology [address] [place] [address] 10/12/2025 10:30 AM EST Office Visit Pav CC Head, Neck & Respiratory 800 [facility], 2nd [place] [address] Isiah Graff, DO 800 [facility] 1st [place] [address] documented as of this encounter Procedures Procedure Name Priority Date/Time Associated Diagnosis Comments MR OUTSIDE IMAGES 07/02/2022 11:06 AM EDT documented in this encounter Results * MR transfer of outside films (07/02/2022 11:06 AM EDT) Anatomical Region Laterality Modality Magnetic Resonan ce 07/02/2022 11:0 6 AM EDT Bryon Griffith MD IMG MRI PROCEDURES Final Resu lt documented in this encounter Visit Diagnoses Not on filedocumented in this encounter Care Teams Seed Analysis Laboratory Assistant Relationship Specialty Start Date End Date Shannon Wiley APRN [facility] [place] [address] PCP - General 02/15/21 08/10/24 Nito Lr MD [facility] [address] [place] [address] PCP - General 08/11/24 Isiah Graff DO [address] [address] Surgeon Cardiothoracic Surgery 08/11/24 documented as of this encounter
--- OUTSIDE RECORDS SUMMARY | 2025-06-07 12:08 | XMS_ITS | Encounter Summary ---
Author Organization [facility] Address [address] [place] [address] Care Team Providers Care Professional Driver Name Role Phone Shannon Wiley George HINOJOSA Primary Care Provider [phone] Nito Lr MD Primary Care Provider [phone] Isiah Graff DO Unavailable [phone] Encounter Details Date Type Department Care Team (Late st Contact Info) Description 06/17/2024 Orders Only External Location 800 [place] [address] Bryon Griffith MD [address] [place] [address] Social History Tobacco Use Types Packs/Day Years [...] EST Appointment [facility] G Radiology [address] [place] [address] 10/12/2025 10:30 AM EST Office Visit Pav CC Head, Neck & Respiratory 800 [facility], 2nd [place] [address] Isiah Graff, DO 800 [facility] [address] [place] [address] documented as of this encounter Procedures Procedure Name Priority Date/Time Associated Diagnosis Comments MR OUTSIDE IMAGES 06/17/2024 4:06 PM EDT documented in this encounter Results * MR transfer of outside films (06/17/2024 4:06 PM EDT) Anatomical Region Laterality Modality Magnetic Resonan ce 06/17/2024 4:06 PM EDT Bryon Griffith MD IMG MRI PROCEDURES Final Resu lt documented in this encounter Visit Diagnoses Not on filedocumented in this encounter Care Teams Professional Driver Relationship Specialty Start Date End Date Shannon Wiley APRN [facility] [place] [address] PCP - General 02/15/21 08/10/24 Nito Lr MD [facility] [address] [place] [address] PCP - General 08/11/24 Isiah Graff DO [address] [address] Surgeon Cardiothoracic Surgery 08/11/24 documented as of this encounter
--- OUTSIDE RECORDS SUMMARY | 2025-06-07 12:08 | XMS_ITS | Encounter Summary ---
Author Organization [facility] Address [address] [place] [address] Care Team Providers Care Research Professional Name Role Phone Nito Lr MD Primary Care Provider [phone] Isiah Graff DO Unavailable [phone] Encounter Details Date Type Department Care Team (Latest Contact Info) Description 04/13/2025 Travel Social History Tobacco Use Types Packs/Day Years [...] any time in the past 12 m [facility], were you homeless or living in a halfway (including now)? No 09/06/2024 Utilities Answer Date [...] EST Appointment [facility] G Radiology [address] [place] [address] 10/12/2025 10:30 AM EST Office Visit Pav CC Head, Neck & Respiratory 800 [facility], 2nd [place] [address] Isiah Graff D, DO [address] [address] documented as of this encounter Visit Diagnoses Not on filedocumented in this encounter Additional Health Concerns Assessment Noted Time A fall risk assessment has been complete d for the patient 04/13/2025 1:03 PM EDT A Body Mass Index follow-up plan has been documented for the patient 04/14/2025 11:30 AM EDT documented as of this encounter Care Teams Research Professional Relationship Specialty Start Date End Date Nito Lr MD 1210 [facility] [address] [place] [address] PCP - General 08/11/24 Isiah Graff DO [address] [place] [address] Surgeon Cardiothoracic Surgery 08/11/24 documented as of this encounter
--- OUTSIDE RECORDS SUMMARY | 2025-06-07 12:08 | XMS_ITS | Clinical Summary ---
Author Organization [facility] Address [address] [place] [address] Care Team Providers Care Spool Fixer Name Role Phone Nito rL MD Primary Care Provider [phone] Allergies No known active allergies Medications levothyroxine (SYNTHROID, LEVOTHROID) 75 MCG tablet 06/19/2021 Active famotidine (PEPCID) 20 MG tablet Take 1 tablet by mouth 2 (Two) Times a Day. Active Active Problems No known active problems Family History Medical History Relation Name Comments Arthritis Father Kavon Cancer Father Kavon None Heart disease Father Kavon Hyperlipidemia Father Kavon Arthritis Mother Maricruz Cancer Mother Maricruz Kidney tumor Kidney disease Mother Maricruz Tumor on kidn ey Relation Name Status Comments Father Kavon Mother Maricruz Social History Tobacco Use Types Packs/Day Years Used Date Smoking Tobacco: Never Passive Smoke Exposure: Never Smokeless Tobacco: Never Alcohol Use Standard Drinks/Week Comments Never 0 (1 standard drink = 0.6 oz pur e alcohol) Abuse Screen Answer Date Recorded Unsafe at Home or Work/School Not on file Feels Threatened by Someone? Not on file Does Anyone Keep You from Co ntacting Others or Doint Things Outside the Home? Not on file 07/17/2023 Physical Sign of Abuse Present Not on file 1 Housing Stability Answer Date Recorded Current Living Arrangements Not on file 07/05 Potentially Unsafe Housing Conditions Not on flory e 07/17/2023 Family and Community Support Answer Cesario e Recorded Help with Day-to-Day Activities Not on file 07/17/2023 Lonely or Isolated Not on file 07/17/2023 Employment Answer Date Recorded Do you want help finding or keeping work or a bam b? Not on file 07/17/2023 Disabilities Answer Date Recorded Concentrating, Remembering, or Making Decisions Difficulty Not on file 07/17/2023 Doing Errands Independently Difficulty Not on fi le 07/17/2023 Education Answer Date Recorded Help with school or training? Not on file Preferred Language Not on file 07/17/2023 Comments No Sex and Gender Information Value Date Recorded Sex Assigned at Not on file Legal Sex Female 12:31 PM EST Gender Identity Not on file Sexual Orientation Not on file Last Filed Vital Signs Vital Sign Reading Time Taken Comments Blood Pressure - - Pulse - - Temperature 36.2 C (97.1 F) 07/19/2024 3:08 PM EDT Respiratory Rate - - Oxygen Saturation - - Inhaled Oxygen Concentration - - Weight 83.9 kg (185 lb) 07/19/2024 3:08 PM EDT Height 165.1 cm (5' 5 ) 07/19/2024 3:08 PM EDT Body Mass Index 30.79 07/19/2024 3:08 PM EDT Plan of Treatment Upcoming Encounters Date Type Department Care Team (Late st Contact Info) Description 06/23/2025 9:30 AM EDT Appointment [facility] [address] [place] [address] 06/23/2025 11:40 AM EDT Office Visit [facility]ERY [address] [phone] Broyn Griffith MD [address] [address] Health Maintenance Due Date Last Done Comments DXA SCAN 1955 MAMMOGRAM 1993 COLOGUARD 1998 COLON CANCER SCREENING 5 YEA R SIGMOIDOSCOPY 1998 COLONOSCOPY 1998 COL[address] CANCER SCREENING 1998 CT COLONOGRAPHY 1998 FECAL OCCULT BLOOD TEST 1998 FIT Testing (1 year) 1998 Pneumococcal Vaccine 50+ (1 of 1 - PCV) 2003 ZOSTER VACCINE (1 of 2) 2003 TDAP/TD VACCINES (2 - Tdap) 12/08/2006 12/08/1996 ANNUAL WELLNESS VISIT 09/04/2021 HEPATITIS C SCREENING 09/04/2021 COVID-19 Vaccine (7 2023-2 5 season) 2024 01/14/2023, 06/25/2022, 02/14/2022, Additional history exists INFLUENZA VACCINE 07/05/2025 09/08/2023 Insurance [place] [id number] MEDICARE A & B Member Subscriber Plan / Payer (Ef fective 2018-Present) Name:AntonioLewisValoriecory Diego Member ID:[id number] Relation to Subscriber:Self Name:Antonio Valoriecory Diego Subscriber ID:[id number] Payer ID:[id number] Group ID:Not on file Type:Not on file Address: [address] Care Teams Spool Fixer Relationship Specialty Start Date End Date Nito Lr MD [address] [facility] [address] [facility] [place] [address] PCP - General Internal Medicine 08/19/21
--- OUTSIDE RECORDS SUMMARY | 2025-06-07 12:08 | XMS_ITS | Encounter Summary ---
Author Organization [facility] Address [address] [place] [address] Care Team Providers Care Station Supervisor Name Role Phone Saurabh Shannon Vazquez APRN Primary Care Provider [phone] Nito Lr MD Primary Care Provider [phone] Isiah Graff DO Unavailable [phone] Encounter Details Date Type Department Care Team (Late st Contact Info) Description 07/21/2023 Orders Only External Location [address] [place] [address] Provider, External Social History Tobacco Use Types [...] EST Appointment [facility] [address] [place] [address] 10/12/2025 10:30 AM EST Office Visit [facility] [address] [place] [address] Isiah Graff, DO 800 [facility] [address] [place] [phone] documented as of this encounter Procedures Procedure Name Priority Date/Time Associated Diagnosis Comments NM OUTSIDE IMAGES 07/21/2023 12:41 PM EDT documented in this encounter Results * NM OUTSIDE IMAGES (07/21/2023 12:41 PM EDT) Anatomical Region Laterality Modality Nuclear Medicine 07/21/2023 12:4 1 PM EDT us External Provider IMG NM PROCEDURES Final Result documented in this encounter Visit Diagnoses Not on filedocumented in this encounter Care Teams Station Supervisor Relationship Specialty Start Date End Date Shannon Wiley APRN [address] [place] [address] PCP - General 02/15/21 08/10/24 Nito Lr MD 1210 [facility] [address] [place] [address] PCP - General 08/11/24 Isiah Graff DO [address] [address] Surgeon Cardiothoracic Surgery 08/11/24 documented as of this encounter
--- OUTSIDE RECORDS SUMMARY | 2025-06-07 12:08 | XMS_ITS | Encounter Summary ---
Author Organization [facility] Address [address] [place] [address] Care Team Providers Care Speech Therapist Early Intervention Name Role Phone Saurabh Shannon Vazquez APRN Primary Care Provider [phone] Nito Lr MD Primary Care Provider [phone] Isiah Graff DO Unavailable [phone] Encounter Details Date Type Department Care Team (Late st Contact Info) Description 07/10/2023 Orders Only External Location [address] [place] [address] Provider, External Social History Tobacco Use Types [...] EST Appointment [facility] [address] [place] [address] 10/12/2025 10:30 AM EST Office Visit [facility] [address] , [address] [place] [address] Isiah Graff, DO 800 [facility] 1[address] [place] [address] documented as of this encounter Procedures Procedure [...] on filedocumented in this encounter Care Teams Speech Therapist Early Intervention Relationship Specialty Start Date End Date Shannon Wiley APRN [address] [place] [address] PCP - General 02/15/21 08/10/24 Nito Lr MD 1210 [facility] [address] [place] [address] PCP - General 08/11/24 Isiah Graff DO [address] [address] Surgeon Cardiothoracic Surgery 08/11/24 documented as of this encounter
== END 2025-06-07 23:59 | disposition home or self-care (01) ==
LOC: RAD 11:51
PROVIDERS: PCP Internal Medicine; Visit Provider Nurse Practitioner
DX: M77.32 Calcaneal spur, left foot (principal)
CPT/HCPCS: 73630

== ENCOUNTER 2025-07-05 09:05 | Outpatient (CLI) | payer MEDICARE, OTHER, SELFPAY ==
--- OUTSIDE RECORDS SUMMARY | 2025-06-23 08:13 | XMS_ITS | Encounter Summary ---
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 Procedures MRI Brain With & Without Contrast Bryon Griffith MD [address] [place] [address] Phone: tel: fax: [facility] [address] [place] [address] Phone: tel: Referral ID Status Reason Start Date Expiration Date Visits Re quested Visits Authorized [id number] Closed 07/19/2024 07/19/2025 1 1 Reason for Visit * MRI/CAT/PET Scan (Routine) - Closed Specialty Diagnoses / Procedures [facility] Referred To Contact Radiology Diagnoses 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 Procedures MRI Brain With & Without Contrast Bryon Griffith MD [address] [place] [address] Phone: tel: fax: [facility] [address] [place] [address] Phone: tel: Referral ID Status Reason Start Date Expiration Date Visits Re quested Visits Authorized [id number] Closed 07/19/2024 07/19/2025 1 1 Encounter Details Date Type Department Care Team (Late Contact Info) Description 06/23/2025 8:13 AM EDT - 06/23/2025 11:59 PM EDT Hospital Encounter [facility] [address] [place] [address] Bryon Griffith MD 1760 [facility] [address] [place], [place] [id number] 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 Discharge Disposition: Home or Self Care Social History Tobacco Use Types Packs/Day Years Used Date Smoking Tobacco: Never Passive Smoke Exposure: Never Smokeless Tobacco: Never Alcohol Use Standard Drinks/Week Comments Never 0 (1 standard drink = 0.6 oz pur e alcohol) Comments No Sex and Gender Information Value Date Recorded Sex Assigned at Not on file Legal Sex Female 12:31 PM EST Gender Identity Not on file Sexual Orientation Not on file documented as of this encounter Medications at Time of Discharge ammonium lactate (AMLACTIN) 12 % cream APPLY CREAM TOPICALLY TO AFFECTED AREA TWICE DAILY FOR DRY SKIN, CALLUS CARE 06/15/2025 Cholecalciferol 50 MCG (2000 UT) capsule Take 1 capsule by mouth Daily. famotidine (PEPCID) 20 MG tablet Take 1 tablet by mouth 2 (Two) Times a Day. levothyroxine (SYNTHROID, LEVOTHROID) 75 MCG tablet 06/19/2021 documented as of this encounter Plan of Treatment Upcoming Encounters Date Type Department Care Team (Late Contact Info) Description 06/13/2026 10:00 AM EDT Appointment [facility] [address] [place] [address] 06/13/2026 12:40 PM EDT Office Visit 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 Electronically Signed: Jean Claude Dewey MD 06/23/2025 4:07 PM EDT Workstation ID: [id number] DxDesc Narrative 06/23/2025 4:07 PM EDT MRI BRAIN W WO CONTRAST Date of Exam: 06/23/2025 8:38 AM EDT Indication: meningioma. Comparison: 06/17/2024 Technique: Routine multiplanar/multisequence sequence images of the brain were obtained before and after the uneventful administration of 8.5 cc Vueway. Findings: Enhancing lentiform shaped meningioma along the right greater sphenoid wing measuring 2.8 cm x 1.3 cm not significantly changed compared with the prior study. This does appear to extend across the posterior lateral wall of the right orbit in the region of the orbital apex. Multiple foci of increased T2/FLAIR signal noted within the subcortical and deep cerebral white matter likely due to chronic small vessel/microangiopathic ischemic changes. Intracranial venous sinuses are patent. The ventricles and sulci are normal in size and configuration. The posterior fossa is normal. Partially empty sella incidentally noted. Orbital and periorbital soft tissues are normal. Small mucoid retention cyst or polyp within the right maxillary sinus again noted. The mastoid air cells are aerated. Procedure Note Jean Claude Dewey MD - 06/23/2025 MRI BRAIN W WO CONTRAST Date of Exam: 06/23/2025 8:38 AM EDT Indication: meningioma. Comparison: 06/17/2024 Technique: Routine multiplanar/multisequence sequence images of the brainwere obtained before and after the uneventful administration of 8.5 ccVueway. Findings: Enhancing lentiform shaped meningioma along the right greatersphenoid wing measuring 2.8 cm x 1.3 cm not significantly changed comparedwith the prior study. This does appear to extend across the posteriorlateral wall of the right orbit in the region of the orbital apex. Multiple foci of increased T2/FLAIR signalnoted within the subcortical and deep cerebral white matter likely due tochronic small vessel/microangiopathic ischemic changes. Intracranialvenous sinuses are patent. The ventricles and sulci are normal in size and configuration. The posteriorfossa is normal. Partially empty sella incidentally noted. Orbital and periorbital soft tissues are normal. Small mucoid retentioncyst or polyp within the right maxillary sinus again noted. The mastoidair cells are aerated. IMPRESSION: Stable MRI of the brain. 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 Flush with NS after injection. Given 06/23/2025 9:16 AM EDT 8.5 mL documented in this encounter Care Teams Executive Vice President And Chief Financial Officer Relationship Specialty Start Date End Date Nito Lr MD [address] [place] [address] [place] [address] PCP - General Internal Medicine 08/19/21 documented as of this encounter
--- OUTSIDE RECORDS SUMMARY | 2025-06-23 11:40 | XMS_ITS | Encounter Summary ---
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 Procedures MRI Brain With & Without Contrast Bryon Griffith MD [address] [address] Phone: tel: fax: [facility] [address] [place] [address] Phone: tel: Referral ID Status Reason Start Date Expiration Date V isits Requested Visits Authorized [id number] Authorized 06/23/2025 09/22/2026 1 1 Reason for Visit * Reason Comments Follow-up Encounter Details Date Type Department Care Team (Late st Contact Info) Description 06/23/2025 11:40 AM EDT Office Visit [facility] NEUROS[facility]GERY [address] [phone] Bryon Griffith MD [address] [place] [address] 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 (Primary Dx) Social History Tobacco Use Types Packs/Day Years Used Date Smoking Tobacco: Never Passive Smoke Exposure: Never Smokeless Tobacco: Never Tobacco Cessation:Counseling Given: [...] Pressure - - Pulse - - Temperature 36.7 C (98 F) 06/23/2025 11:28 AM EDT Respiratory Rate - - Oxygen Saturation - - Inhaled Oxygen Concentration - - Weight 82.6 kg (182 lb) 06/23/2025 11:28 AM EDT Height 165.1 cm (5' 5 ) 06/23/2025 11:28 AM EDT Body Mass Index 30.29 06/23/2025 11:28 AM EDT documented in this encounter Progress Notes * Bryon Griffith MD - 06/23/2025 11:40 AM EDT Patient: Valorie Alvarez : 1955 Primary Care Provider: Nito Lr MD Requesting Provider: As above History Chief Complaint: Right sphenoid wing meningioma. History of Present Illness: Ms. Alvarez is a 69-year-old right-handed woman who had right-sided neck pain for couple of years as well as some dull headache. Studies demonstrated findings consistent with a sphenoid wing meningioma on the right. She has had no diplopia or visual compromise. She reportsno change in her medical history. We have been following this since 2020. She reports no new difficulties. Review of Systems Constitutional: Negative for activity change, appetite change, chills, diaphoresis, fatigue, fever and unexpected weight change. HENT: Negative for congestion, dental problem, drooling, ear discharge, ear pain, facial swelling, hearing loss, mouth sores, nosebleeds, postnasal drip, rhinorrhea, sinus pressure, sinus pain, sneezing, sore throat, tinnitus, trouble swallowing and voice change. Eyes: Negative for photophobia, pain, discharge, redness, itching and visual disturbance. Respiratory: Negative for apnea, cough, choking, chest tightness, shortness of breath, wheezing andstridor. Cardiovascular: Negative for chest pain, palpitations and leg swelling. Gastrointestinal: Negative for abdominal distention, abdominal pain, anal bleeding, blood in stool,constipation, diarrhea, nausea, rectal pain and vomiting. Endocrine: Negative for cold intolerance, heat intolerance, polydipsia, polyphagia and polyuria. Genitourinary: Negative for decreased urine volume, difficulty urinating, dyspareunia, dysuria, enuresis, flank pain, frequency, genital sores, hematuria, menstrual problem, pelvic pain, urgency, vaginal bleeding, vaginal discharge and vaginal pain. Musculoskeletal: Negative for arthralgias, back pain, gait problem, joint swelling, myalgias, neck pain and neck stiffness. Skin: Negative for color change, pallor, rash and wound. Allergic/Immunologic: Negative for environmental allergies, food allergies and immunocompromised state. Neurological: Negative for dizziness, tremors, seizures, syncope, facial asymmetry, speech difficulty, weakness, light-headedness, numbness and headaches. Hematological: Negative for adenopathy. Does not bruise/bleed easily. Psychiatric/Behavioral: Negative for agitation, behavioral problems, confusion, decreased concentration, dysphoric mood, hallucinations, self-injury, sleep disturbance and suicidal ideas. The patientis not nervous/anxious and is not hyperactive. The patient's past medical history, past surgical history, family history, and social history have been reviewed at length in the electronic medical record. Physical Exam: Ht 165.1 cm (65 ) Wt 82.6 kg (182 lb) BMI 30.29 kg/m?? Extraocular movements are intact. Visual gallagher are full to confrontation. Medical Decision Making Data Review: (All imaging studies were personally reviewed unless stated otherwise) MRI of the brain dated 06/23/2025 is compared to the prior study from 06/17/2024. I do not see any interval change in the right sphenoid wing meningioma. Diagnosis: Right sphenoid wing meningioma, stable. Treatment Options: Patient will follow-up in 1 year with a new MRI of the brain with and without gadolinium. Scribed for Bryon Griffith MD by Nathaly Lemus CMA on 06/23/2025 11:54 EDT I, Dr. Griffith, personally performed the services described in the documentation, as scribed in my presence, and it is both accurate and complete. 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
[2025-07-05 14:16] LABS: Hematocrit 44.4 % (37.0-47.0); Hemoglobin 14.3 g/dL (12.2-16.2); Immature Granulocytes % 0.6 %; Mean Corpuscular HGB Conc 32.2 g/dL (31.8-35.4); Mean Corpuscular Hemoglobin 28.4 pg (27.0-31.2); Mean Corpuscular Volume 88.1 fl (81-99); Nucleated Red Blood Cells % 0 %; Platelet Count 325 K/mm3 (142-424); Red Blood Count 5.04 M/mm3 (4.20-5.40); Red Cell Distribution Width-SD 43.7 fL; White Blood Count 11.4 K/mm3 (4.8-10.8)
[2025-07-05 14:47] LABS: Alanine Aminotransferase 35 U/L (12-78); Albumin Level 4.2 g/dl (3.5-5.0); Albumin/Globulin Ratio 1.6 (1.1-1.8); Alkaline Phosphatase 96 U/L (38-126); Anion Gap 15.1 mEq/L (5-15); Aspartate Amino Transferase 30 U/L (14-36); Bilirubin,Total 0.6 mg/dl (0.2-1.3); Blood Urea Nitrogen 10 mg/dl (7-17); Calcium 10.4 mg/dl (8.4-10.2); Carbon Dioxide 26 mmol/L (22.0-30.0); Chloride 101 mmol/L (98-107); Cholesterol 178 mg/dl (140-200); Creatinine,Serum 0.50 mg/dl (0.52-1.04); Estimated Glomerular Filt Rate 122 ml/min (>60); GFR (African American) 147 ML/MIN (>60); Globulin 2.6 g/dL (1.3-3.2); Glucose 127 mg/dl (74-100); HDL Cholesterol 45 mg/dl (40-60); Potassium 5.1 mmoL/L (3.5-5.1); Sodium 137 mmol/L (136-145); Total Protein,Serum 6.8 g/dl (6.3-8.2); Triglycerides 123 mg/dl (30-150)
[2025-07-05 15:20] LABS: Thyroid Stimulating Hormone 2.84 uIU/mL (0.465-4.68)
[2025-07-05 15:41] LABS: Hemoglobin A1C 7.0 % (4.0-6.0)
--- OUTSIDE RECORDS SUMMARY | 2025-07-06 09:50 | XMS_ITS | Encounter Summary ---
Author Organization [facility] Address [address] [place] [address] Care Team Providers Care Financial Project Manager Name Role Phone Saurabh Shannon Vazquez APRN Primary Care Provider [phone] Nito Lr MD Primary Care Provider [phone] Isiah Graff DO Unavailable [phone] Encounter Details Date Type Department Care Team (Late st Contact Info) Description 07/10/2023 Orders Only External Location [address] [place] [address] Provider, External Social History Tobacco Use Types [...] EST Appointment [facility] [address] [place] [address] 10/12/2025 10:30 AM EST Office Visit [facility] [address] [place] [address] Isiah Graff, DO 800 [facility] [address] [place] [address] documented as of this encounter Procedures Procedure [...] on filedocumented in this encounter Care Teams Financial Project Manager Relationship Specialty Start Date End Date Shannon Wiley APRN [address] [place] [address] PCP - General 02/15/21 08/10/24 Nito Lr MD [address] [facility] [address] [place] [address] PCP - General 08/11/24 Isiah Graff DO [address] [address] Surgeon Cardiothoracic Surgery 08/11/24 documented as of this encounter
--- OUTSIDE RECORDS SUMMARY | 2025-07-06 09:50 | XMS_ITS | Encounter Summary ---
Author Organization [facility] Address [address] [place] [address] Care Team Providers Care Supervisor Hand Silvering Name Role Phone Shannon Wiley George HINOJOSA Primary Care Provider [phone] Nito Lr MD Primary Care Provider [phone] Isiah Graff DO Unavailable [phone] Encounter Details Date Type Department Care Team (Late st Contact Info) Description 06/17/2024 Orders Only External Location [address] [place] [address] Bryon Griffith MD [address] [place] [address] Social History Tobacco Use Types Packs/Day Years [...] EST Appointment [facility] [address] [place] [address] 10/12/2025 10:30 AM EST Office Visit [facility] [address] [facility], [address]nd [place] [address] Isiah Graff, DO 800 [facility] [address] [place] [address] documented as of this encounter [...] on filedocumented in this encounter Care Teams Supervisor Hand Silvering Relationship Specialty Start Date End Date Shannon Wiley APRN [facility] [place] [address] PCP - General 02/15/21 08/10/24 Nito Lr MD [facility] [address] [place] [address] PCP - General 08/11/24 Isiah Graff DO [address] [address] Surgeon Cardiothoracic Surgery 08/11/24 documented as of this encounter
--- OUTSIDE RECORDS SUMMARY | 2025-07-06 09:50 | XMS_ITS | Encounter Summary ---
Author Organization [facility] Address [address] [place] [address] Care Team Providers Care Associate Professor Of Library Media Name Role Phone Shannon Wiley George HINOJOSA Primary Care Provider [phone] Nito Lr MD Primary Care Provider [phone] Isiah Graff DO Unavailable [phone] Encounter Details Date Type Department Care Team (Late st Contact Info) Description 07/02/2022 Orders Only External Location [address] [place] [address] Bryon Griffith MD [address] [place] [address] Social History Tobacco Use Types Packs/Day Years [...] EST Appointment PAV G Radiology [address] [place] [address] 10/12/2025 10:30 AM EST Office Visit Pav CC Head, Neck & Respiratory 800 [facility], 2nd [place] [address] Isiah Graff, DO 800 [facility] 1st [place] [address] documented as of this encounter [...] on filedocumented in this encounter Care Teams Associate Professor Of Library Media Relationship Specialty Start Date End Date Shannon Wiley APRN [facility] [place] [address] PCP - General 02/15/21 08/10/24 Nito Lr MD [facility] [address] [place] [address] PCP - General 08/11/24 Isiah Graff DO [address] [address] Surgeon Cardiothoracic Surgery 08/11/24 documented as of this encounter
--- OUTSIDE RECORDS SUMMARY | 2025-07-06 09:50 | XMS_ITS | Clinical Summary ---
Author Organization [facility] Address [address] [place] [address] Care Team Providers Care Iron Installer Name Role Phone Nito Lr MD Primary Care Provider [phone] Isiah Grfaf DO Unavailable [phone] Allergies No known active allergies Medications famotidine [...] & Respiratory [address] , [address] [place] [address] Iisah Graff, DO Mediastinal mass 04/13/2025 10:32 AM EDT - 04/13/2025 11:59 PM EDT Hospital Encounter [facility] [address], [address] [place] [address] Mediastinal mass Discharge Disposition: Home or Self Care 04/13/2025 Travel from Last 3 Months Family History Medical [...] time in the past 12 m [facility], were you homeless or living in a skilled nursing (including now)? No 09/06/2024 Utilities Answer Date Recorded In the past 12 months has e electric, gas, oil, or water [employer] threatened to shut off services in your [...] EST Appointment [facility] G Radiology [address] [place] [address] 10/12/2025 10:30 AM EST Office Visit Pav CC Head, Neck & Respiratory 800 [facility], 2nd [place] [address] Isiah Graff, DO 800 [facility] 1[address] [place] [address] Health Maintenance Due Date Last Done Comments [facility]-Bone Density Scan 1955 [facility]-Depression Screening 1953 [facility]-Hepatitis C Screening 1955 [facility]-Medicare Annual Wellness (AWV) 1955 [facility]-/Child/Adol SDOH Screenings 1953 [facility]-Zoster Vaccines (1 of 2) 1972 [facility]-DTaP,Tdap,and Td Vaccines (1 - Tdap) 12/09/1996 12/08/1996 CT Colonography 1998 Colonoscopy 1998 FIT-DNA 1998 FIT 1998 FOBT 1998 Sigmoidoscopy 1998 [facility]-Colorectal Cancer Screening 1998 [facility]-RSV Vaccine: 60+ Years or (1 - Risk 60-74 years 1-dose series) 2013 [facility]- SDOH Screenings 03/07/2025 [facility]-Adult SDOH Screenings 03/07/2025 09/06/2024 [id number] Vaccine (8 - Pfizer risk 2023- season) 2025 08/12/2024, 01/14/2023, 06/25/2022, Additional history exists [facility]-Influenza Vaccine (#1) 2025 07/26/2024, [facility]-Pneumococcal Vaccine: [...] t from Last 3 Months Insurance MEDICARE [facility] Advance Directives Documents on File Type Date Recorded Patient Operations Project Manager Expl anation Advance Directives and Living Will 09/05/2024 Power of Mri Tech 09/05/2024 * Full Code (Latest Code Status on File) Date Activated Date Inactivated Comments 09/05/2024 9:49 AM 09/06/2024 7:43 PM Question Answer Comments Patient has decision-making capacity? Yes Care Teams Iron Installer Relationship Specialty Start Date End Date Nito Lr MD [address] [place] [address] [address] [place] [address] PCP - General 08/11/24 Isiah Graff DO [address] [place] [address] Surgeon Cardiothoracic Surgery 08/11/24
--- OUTSIDE RECORDS SUMMARY | 2025-07-06 09:50 | XMS_ITS | Clinical Summary ---
Author Organization [facility] Address [address] [place] [address] Care Team Providers Care Joiner Helper Name Role Phone Nito Lr MD Primary Care Provider [phone] Allergies No known active allergies Medications levothyroxine (SYNTHROID, LEVOTHROID) 75 MCG tablet 1 Active famotidine (PEPCID) 20 MG tablet Take 1 tablet by mouth 2 (Two) Times a Day. Active ammonium lactate (AMLACTIN) 12 % cream APPLY CREAM TOPICALLY TO AFFECTED AREA TWICE DAILY FOR DRY SKIN, CALLUS CARE 5 Active Cholecalciferol 50 MCG (1999 UT) capsule Take 1 capsule by mouth Daily. 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 Discharge Disposition: Home or Self Care 06/23/2025 Travel from Last 3 Months Family History [...] Mass Index 30.29 06/23/2025 11:28 AM EDT Plan of Treatment Upcoming Encounters Date Type Department Care Team (Late st Contact Info) Description 06/13/2026 10:00 AM EDT Appointment [facility] MRI [address] [place] [address] 06/13/2026 12:40 PM EDT Office Visit [facility] NEUROSURGERY [address] [phone] Bryon Griffith MD [address] [address] Health Maintenance Due Date Last Done Comments DXA SCAN 1953 MAMMOGRAM 1993 COLOGUARD 1998 COLON CANCER SCREENING 5 YEA R SIGMOIDOSCOPY 1998 COLONOSCOPY 1998 COLORECTAL CANCER SCREENING 1998 CT COLONOGRAPHY 1998 FECAL OCCULT BLOOD TEST 1998 FIT Testing (1 year) 1998 ZOSTER VACCINE (1 of 2) 2003 TDAP/TD VACCINES (2 - Tdap) 12/08/2006 12/08/1996 ANNUAL WELLNESS VISIT 09/04/2021 HEPATITIS C SCREENING 09/04/2021 INFLUENZA VACCINE 05/05/2025 07/26/2024, 09/08/2023 COVID-19 Vaccine (2023-2 5 season) 2025 08/12/2024, 01/14/2023, 06/25/2022, Additional history exists Pneumococcal Vaccine 50+ Completed 08/19/2024 Procedures Procedure Name Priority Date/Time Associated Diagnosis Comments MRI BRAIN W WO CONTRAST Routine 06/23/2025 9:16 AM EDT 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 Electronically Signed: Jean Claude Dewey MD 06/23/2025 4:07 PM EDT Workstation ID: [id number] DxDesc Narrative 06/23/2025 4:07 PM EDT MRI [...] MD 06/23/2025 4:07 PM EDT Workstation ID: [id number] DxDesc Bryon Griffith MD [facility] MRI ORDERABLES Final Resu lt from Last 3 Months Insurance MEDICARE A & B SUP Care Teams Joiner Helper Relationship Specialty Start Date End Date Nito Lr MD [address] [place] [address] E [facility] [address] [place] [address] PCP - General Internal Medicine 08/19/21
--- OUTSIDE RECORDS SUMMARY | 2025-07-06 09:50 | XMS_ITS | Encounter Summary ---
Author Organization [facility] Address [address] [place] [address] Care Team Providers Care Earth Observations Chief Scientist Name Role Phone Saurabh Shannon Vazquez APRN Primary Care Provider [phone] Nito Lr MD Primary Care Provider [phone] Isiah Graff DO Unavailable [phone] Encounter Details Date Type Department Care Team (Late st Contact Info) Description 07/21/2023 Orders Only External Location [address] [place] [address] Provider, External Social History Tobacco Use Types [...] EST Appointment [facility] G Radiology [address] [place] [address] 10/12/2025 10:30 AM EST Office Visit Pav CC Head, Neck & Respiratory [address] , [address] [place] [address] Isiah Graff, DO 800 [facility] 1st [place] [address] documented as of this encounter Procedures Procedure [...] on filedocumented in this encounter Care Teams Earth Observations Chief Scientist Relationship Specialty Start Date End Date Shannon Wiley APRN [address] [place] [address] PCP - General 02/15/21 08/10/24 Nito Lr MD 1210 [facility] [address] [place] [address] PCP - General 08/11/24 Isiah Graff DO [address] [address] Surgeon Cardiothoracic Surgery 08/11/24 documented as of this encounter
--- OUTSIDE RECORDS SUMMARY | 2025-07-06 09:50 | XMS_ITS | Encounter Summary ---
Author Organization [facility] Address [address] [place] [address] Care Team Providers Care High School Football Coach Name Role Phone SaurabhShannon APRN Primary Care Provider [phone] Nito Lr MD Primary Care Provider [phone] Isiah Graff DO Unavailable [phone] Encounter Details Date Type Department Care Team (Late st Contact Info) Description 07/24/2023 Orders Only External Location [address] [place] [address] Provider, External Social History Tobacco Use Types [...] EST Appointment [facility] G Radiology [address] [place] [address] 10/12/2025 10:30 AM EST Office Visit Pav CC Head, Neck & Respiratory [address] , [address] [place] [address] Isiah Graff, DO 800 [facility] 1st [place] [address] documented as of this encounter Procedures Procedure [...] on filedocumented in this encounter Care Teams High School Football Coach Relationship Specialty Start Date End Date Shannon Wiley APRN [address] [place] [address] PCP - General 02/15/21 08/10/24 Nito Lr MD 1210 [facility] [address] [place] [address] PCP - General 08/11/24 Isiah Graff DO [address] [address] Surgeon Cardiothoracic Surgery 08/11/24 documented as of this encounter
--- OUTSIDE RECORDS SUMMARY | 2025-07-06 09:50 | XMS_ITS | Encounter Summary ---
Author Organization [facility] Address [address] [place] [address] Care Team Providers Care Table And Desk Finisher Name Role Phone Saurabh Shannon Vazquez APRN Primary Care Provider [phone] Nito Lr MD Primary Care Provider [phone] Isiah Graff DO Unavailable [phone] Encounter Details Date Type Department Care Team (Late st Contact Info) Description 07/10/2023 Orders Only External Location [address] [place] [address] Provider, External Social History Tobacco Use Types [...] EST Appointment [facility] G Radiology [address] [place] [address] 10/12/2025 10:30 AM EST Office Visit Pav CC Head, Neck & Respiratory [address] , [address] [place] [address] Isiah rGaff, DO 800 [facility] 1[address] [place] [address] documented as of this encounter Procedures Procedure [...] on filedocumented in this encounter Care Teams Table And Desk Finisher Relationship Specialty Start Date End Date Shannon Wiley APRN [address] [place] [address] PCP - General 02/15/21 08/10/24 Nito Lr MD 1210 [facility] [address] [place] [address] PCP - General 08/11/24 Isiah Graff DO [address] [address] Surgeon Cardiothoracic Surgery 08/11/24 documented as of this encounter
--- OUTSIDE RECORDS SUMMARY | 2025-07-06 09:50 | XMS_ITS | Encounter Summary ---
Author Organization [facility] Address [address] [place] [address] Care Team Providers Care Sales Service Representative Name Role Phone Shannon Wiley George HINOJOSA Primary Care Provider [phone] Nito Lr MD Primary Care Provider [phone] Isiah Graff DO Unavailable [phone] Encounter Details Date Type Department Care Team (Late st Contact Info) Description 10/17/2021 Orders Only External Location [address] [place] [address] Bryon Griffith MD [address] [place] [address] Social History Tobacco Use Types Packs/Day Years [...] EST Appointment PAV G Radiology [address] [place] [address] 10/12/2025 10:30 AM EST Office Visit Pav CC Head, Neck & Respiratory 800 [facility], 2nd [place] [address] Isiah Graff, DO 800 [facility] 1[address] [place] [address] documented as of this encounter [...] on filedocumented in this encounter Care Teams Sales Service Representative Relationship Specialty Start Date End Date Shannon Wiley APRN [facility]0 [place] [address] PCP - General 02/15/21 08/10/24 Nito Lr MD [facility] [address] [place] [address] PCP - General 08/11/24 Isiah Graff DO [address] [address] Surgeon Cardiothoracic Surgery 08/11/24 documented as of this encounter
--- OUTSIDE RECORDS SUMMARY | 2025-07-06 09:50 | XMS_ITS | Encounter Summary ---
Author Organization [facility] Address [address] [place] [address] Care Team Providers Care What Job Titles Mean Name Role Phone Shannon Wiley George HINOJOSA Primary Care Provider [phone] Nito Lr MD Primary Care Provider [phone] Isiah Graff DO Unavailable [phone] Encounter Details Date Type Department Care Team (Late st Contact Info) Description 06/19/2023 Orders Only External Location [address] [place] [address] Bryon Griffith MD [address] [place] [address] Social History Tobacco Use Types Packs/Day Years [...] EST Appointment P[facility] G Radiology [address] [place] [address] 10/12/2025 10:30 AM EST Office Visit Pav CC Head, Neck & Respiratory 800 [facility], 2nd [place] [address] Isiah Graff, DO 800 [facility] 1[address] [place] [address] documented as of this encounter [...] on filedocumented in this encounter Care Teams What Job Titles Mean Relationship Specialty Start Date End Date Shannon Wiley APRN [facility] [place] [address] PCP - General 02/15/21 08/10/24 Nito Lr MD [facility]0 [facility] [address] [place] [address] PCP - General 08/11/24 Isiah Graff DO [address] [address] Surgeon Cardiothoracic Surgery 08/11/24 documented as of this encounter
--- OUTSIDE RECORDS SUMMARY | 2025-07-06 09:50 | XMS_ITS | Clinical Summary ---
Author Organization [facility] Address [address] [place] [phone] Phone Care Team Providers Care Service Delivery Director Name Role Phone Unavailable Primary Care Provider [...] Insurance MEDICARE [place] PART A AND B [employer] [place]ARE [place] PART A [place] B [employer]
--- OUTSIDE RECORDS SUMMARY | 2025-07-06 09:51 | XMS_ITS | Encounter Summary ---
Author Organization [facility] Address [address] [place] [address] Care Team Providers Care City Treasurer Name Role Phone Nito Lr MD Primary Care Provider [phone] Encounter Details Date Type Department Care Team (Latest Contact Info) Description 06/23/2025 Travel Social History Tobacco Use Types Packs/Day [...] Info) Description 06/13/2026 10:00 AM EDT Appointment [facility] MRI [address] [place] [address] 06/13/2026 12:40 PM EDT Office Visit [facility] NEUROSURGERY 1760 [facility] 301 [place] [phone] Bryon Griffith MD 1760 [facility] 301 [place] [address] documented as of this encounter Visit Diagnoses Not on filedocumented in this encounter Care Teams City Treasurer Relationship Specialty Start Date End Date Nito Lr MD 1210 [facility] [address] [place] [address] PCP - General Internal Medicine 08/19/21 documented as of this encounter
--- OUTSIDE RECORDS SUMMARY | 2025-07-06 09:51 | XMS_ITS | Data Portability ---
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 Follow-up for renal mass TBD. haines Not available 03/31/2025 15:20:12 Plan of Treatment Reminders Order Date Submit Date Provider Last Modified By Organization Details Last Modified Time Details Appointments MRI 2024 09:20A M MRI Not available Not available Not available RECHECK 2024 01:30P M ANGEL TORRES NP Not available Not available Not available Lab urinalys is panel, auto 2024 025 [email or web address] [facility] [address], [address] [facility], [place], [address], 03/31/2025 10:26:07 PTH (parathy roid hormone) , intact + calcium, serum or plasma 2023 [facility], [address] [place] [address], [phone], 07/07/2024 17:41:07 PTH (parathy roid hormone) , intact, intraope rative panel, serum or plasma 2023 [email or web address] [facility], [address] [place] [address], [address], 07/14/2024 07:20:30 calcium, ionized, quant, serum or plasma 2023 [facility], [address] [place] [address], [address], 07/09/2024 09:15:40 calcium, serum or plasma 2023 [facility], [address] [place] [address], [address], 07/07/2024 17:30:41 Referral None recorded . Procedures None recorded . Surgeries None recorded . Imaging electroc ardiogra m 2023 024 [email or web address] [facility], [address] [facility], [facility], [place], [address], 07/19/2024 13:15:07 Medication Orders None recorded . Patient TargetsNo targets recorded. Patient Instructions Encounter Date Encounter Id Patient Instructions Last Modified By Organization Details Last Modified Time 07/07/2024 [id number] 1. Discussed lab results with Pt. 2. Surgical pathology reviewed with patient. 3. PTH and ionized calcium and serum calcium ordered for patient. 4. Ordered CT w/ contrast - mediastinal mass 5. Ordered Echo and EKG for pt. 6. Follow up with results. : May require chest exploration [email or web address] Not available 07/07/2024 18:35:08 03/31/2025 [id number] - Follow up with Dr. Godfrey for [...] Abnormal Flag Note LastModifiedBy Organization Detail LastModifiedTime 07/07/2007/07/2024 CALCI UM calcium 10.9 mg/dL 8.6-10 .2 high Not Available [facility] [address] [place], [address], 07/07/2024 17:30:41 07/07/2007/07/2024 PTH, INTAC T WITH CA PTH, intact [...] ===== ===== ===== ===== ==== Not Available [facility] [address] [place] [address], [phone], 07/07/2024 17:48:17 07/07/20 24 07/07/2024 PTH, INTAC T WITH CA calcium 11.0 mg/dL 8.6-10 .2 high Not Available [facility] [address] [place] [address], [address], 07/07/2024 17:48:17 07/07/20 24 07/09/2024 IONIZ ED CALCI UM ionized calcium 5.6 mg/dL 4.7-5. 5 high Not Available [facility] [address] [place] [address], [address], 07/09/2024 09:15:40 03/31/20 25 03/31/2025 urina lysis panel , auto Unknown Analyte Clean Catch Not Available [facility] [address] [facility], [place], [address], 03/31/2025 10:16:37 03/31/20 25 03/31/2025 urina lysis panel , auto Unknown Analyte Yellow Not Available [facility] [address] [facility], [place], [address], 03/31/2025 10:16:37 03/31/20 25 03/31/2025 urina lysis panel , auto Unknown Analyte Slight ly Cloudy Not Available [facility] [address] [facility], [place], [address], 03/31/2025 10:16:37 03/31/20 25 03/31/2025 urina lysis panel , auto Unknown Analyte 1.015 Not Available [facility] [address] [facility], [place], [address], 03/31/2025 10:16:37 03/31/20 25 03/31/2025 urina lysis panel , auto Unknown Analyte 5.0 Not Available [facility] [address] [place], [address], 03/31/2025 10:16:37 03/31/20 25 03/31/2025 urina lysis panel , auto Unknown Analyte 500 Farzana/uL Not Available [facility] [address] [place], [address], 03/31/2025 10:16:37 03/31/20 25 03/31/2025 urina lysis panel , auto Unknown Analyte Negati ve Not Available [facility] [address] [place], [address], 03/31/2025 10:16:37 03/31/20 25 03/31/2025 urina lysis panel , auto Unknown Analyte Negati ve Not Available [facility] [address] [facility], [place], [address], 03/31/2025 10:16:37 03/31/20 25 03/31/2025 urina lysis panel , auto Unknown Analyte Normal Not Available [facility] [address] [facility], [place], [address], 03/31/2025 10:16:37 03/31/20 25 03/31/2025 urina lysis panel , auto Unknown Analyte Negati ve Not Available [facility] [address] [facility], [place], [address], 03/31/2025 10:16:37 03/31/20 25 03/31/2025 urina lysis panel , auto Unknown Analyte Normal Not Available [facility] [address] [facility], [place], [address], 03/31/2025 10:16:37 03/31/20 25 03/31/2025 urina lysis panel , auto Unknown Analyte Negati ve Not Available [facility] [address] [place], [address], 03/31/2025 10:16:37 03/31/20 25 03/31/2025 urina lysis panel , auto Unknown Analyte Negati ve Not Available [facility] [address] [place], [address], 03/31/2025 10:16:37 07/13/20 24 07/13/2024 MAMMO , diagn ostic , tomos ynthe sis, unila teral , w/ CAD [facility] [address] [facility] [place] [address] Patien t Name: JUSTINO garcia : [birth year] Age: 69 years Alex garcia 8 Orderi ng Provid er: CATARINA FRANCIS JR EXAM DATE: 2023 EXAM: MG LT DIAG CASSIE MAMMOG DIONICIO INDICA TION: 69-yea r-old female with 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 Alex garcia return s for abnorm al screen ing [...] endati ons were discus sed with the alex garcia. Interp reted By: Mayra pham MD Electr onical ly Signed By: Marya pham MD on 024 8:[address] Radiology [facility] [address] [facility], [place], [address], 07/14/2024 08:54:45 07/13/20 24 07/13/2024 , lalitha phillips [address] [address] Alex garcia Name: JUSTINO garcia : [birth year] Age: 69 years Patimorales garcia 8 Orderi ng Provid er: CATARINABANDAR FRANCIS JR EXAM DATE: 2023 EXAM: US [...] pham MD on 024 8:13 PM [email or web address] [facility] [address] [place], [address], 07/14/2024 08:54:45 07/19/20 elect rocar diogr am No observ ation record ed. sruark Not Available 2023 12:41:59 07/19/20 24 07/19/2024 elect rocar diogr am No observ ation record ed. [email or web address] [facility] [address] [place] [address] [facility], [place], [address], 07/19/2024 12:48:31 07/19/20 24 07/19/2024 US, doppl er echoc ardio gram, w/ color flow No observ ation record ed. [facility] [address] [place] [address] , [place], [address], 07/20/2024 14:31:21 08/03/20 24 08/03/2024 CT, chest , w/ contr ast [facility] [address] [place] [address] Patimorales t Name: JUSTINO garcia : [birth year] Patimorales t 8 Orderi ng Provid er: NANCY Torres OSETIN LANRE EXAM DATE: 2023 EXAM: CT CHEST WITH CONTRA ST CLINIC AL INFORM ATION: Medias tinal mass TECHNI QUE: No POC testin g for eGFR was perfor med due to absenc e of risk factor s. Multip le axial CT images of the chest were obtain ed after inject ion of 100 mL Omnipa que 350 (1 x 100 mL bottle of [facility] 15451- 1414-9 1). none was wasted and discar [...] Jason Cruz MD on 2023 9:38 AM [facility] [address] [place], [address], 08/03/2024 14:51:59 03/10/20 25 03/10/2025 US, abdom en, limit ed [facility] [address] [place] [address] Patimorales t Name: JUSTINO garcia : [birth year] Patimorales [...] Cruz MD on 03/10/20 9:10 AM [facility] [address] [place] [address], [address], 03/16/2025 20:54:19 03/20/2003/20/2025 CT, abdom en, w/ contr ast [address] [address] [phone] Patien t Name: JUSTINO HESS Patien t : [birth year] Patien t 8 Orderi ng Provid er: HETCOR DASILVA EXAM DATE: 2024 EXAM: CT ABDOME [...] 350 (1 x 100 mL bottle of [facility] 30483- 1414-9 1). None was wasted and discar [...] ent measur ing 2.5 cm along the hot cell technician ior latera l aspect . Right kidney [...] Jason Cruz MD on 025 10:15 AM [email or web address] [facility] [address], [address], 03/28/2025 12:04:55 Result Notes Documentation Provider Name and Address Organization Details Recorded Time Mammo, Diagnostic, Tomosynthesis, Unilateral, W/ Cad : [address] [address] Patient Name: JUSTINO HESS Patient : 1955 Age: 69 years Patient Ordering Provider: CATARINA FRANCIS JR EXAM DATE: 07/13/2024 EXAM: MG LT DIAG CASSIE MAMMOGRAM INDICATION: 69-year-old female with history of right breast malignancy status post mastectomy. Patient returns for abnormal screening mammogram September 2023. PROCEDURE: Multislice imaging of the left breast was performed including standard views using [employer] tomosynthesis equipment (3D mammography). 2D images [...] patient. Interpreted By: Mayra Eisenberg MD [facility]/14[facility] 08:54:45 Ct, Chest, W/ Contrast : [facility] [address] [place] [address] Patient Name: JUSTINO HESS Patient : 1955 Patient Ordering Provider: ANCELMO LEE EXAM DATE: 08/03/2024 EXAM: CT CHEST WITH CONTRAST CLINICAL INFORMATION: Mediastinal mass TECHNIQUE: No POC testing for eGFR was performed due to absence of risk factors. Multiple axial CT images of the chest were obtained after injection of 100 mL Omnipaque 350 (1 x 100 mL bottle of [facility] [address]-43). none was wasted and discarded. COMPARISON: None. [...] MRI Interpreted By: Jason Cruz MD [facility] 08/03/2024 14:51:59 Ct, Abdomen, W/ Contrast : [facility] [address] [place] [address] Patient Name: JUSTINO HESS Patient : 1955 [...] 350 (1 x 100 mL bottle of [facility] [address]-27). None was wasted and discarded. 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 Procedures Surgical History Date Name Laterality Status Provider Name and Address Organization Details Recorded Time 03/31/20 25 Post Void Residual; Ultrasound completed María Elena Ugarte [facility] 03/31/2025 10:16:32 03/02/20 24 incision and exploration of neck completed ANCELMO LEE MD [address] [place] [address], [address], [facility] 03/02/2024 14:46:32 Breast Surgery completed [facility] 06/23/2023 11:57:34 [place] [address] [place] [address], [address], [facility] 03/02/2024 14:37:28 hysterectomy completed [facility] 06/23/2023 11:58:01 Tonsillectomy completed [facility] 06/23/2023 11:58:12 Imaging Results None recorded. [...] Updated DateTime 02/23/2025 165.1 cm 31 kg/m2 40560.18 g Jenny Wynnown [facility] 02/23/2025 11:28:21 Date Recorded Body height Body mass index (BMI) Body weight Heart rate Systolic And Diastolic Provider Name and Address Organization Details Last Updated DateTime 03/23/2025 165.1 cm 31.5 kg/m2 89235.96 g 65 /min 138/69 mm[Hg] Rosa Coby [facility] 03/23/2025 13:42:46 Date Recorded Body height Body mass index (BMI) Body weight Provider Name and Address Organization Details Last Updated DateTime 03/31/2025 165.1 cm 31.5 kg/m2 80980.96 g María Elena Torito [facility] 03/31/2025 10:16:07 Date Recorded Body height Body mass index (BMI) Body weight Body temperature Heart rate Systolic And Diastolic Provider Name and Address Organization Details Last Updated DateTime 165.1 cm 30.5 kg/m2 56062.5 g 97.2 [degF] 66 /min 147/76 mm[Hg] Heide Bermanborne [facility] 4 13:36:14 Social History Question Answer Notes LastModified by Organizat ion Details LastModified Time Tobacco Smoking Status Never Smoker [facility] 06/23/2023 11:57:20 What Is Your Relationship Status? [email or web address] Information not available 03/31/2025 Sex: Female Functional Status Question Answer Note LastModified by Organizat ion Details LastModified Time Do you or have you ever used any other forms of tobacco or nicotine? No [email or web address] Information not available 03/31/2025 What is your level of alcohol consumption? None [email or web address] Information not available 06/23/2023 Are you currently employed? 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 Family History Relationship Description Onset Age of this Age Resolved Age Notes LastModified by Organization Details LastModified Time Mother Family history of malignant neoplasm Not available 2022 11:56:47 Mother Kidney disease [email or web address] Not available 2024 10:03:25 Father Family history of malignant neoplasm [email or web address] Not available 2022 11:57:04 Unspecified Relation Arthritis [...] Diagnosis SNOMED-CT Code Diagnosis ICD10 Code Diagnosis IMO Codes Diagnosis Note [id number] MD DEE ALEXANDRA [address] [place] [address] 06/23/2023 11:08:57 06/23/2023 13:50:48 Hypercalcemia 12644359 E83.52 Intracrani al meningioma 964432027 D32.0 Primary hyperparathyroidism 34267423 E21.0 [id number] MD DEE ALEXANDRA ENT [address] [place] [address] 07/14/2023 10:14:12 07/14/2023 11:45:17 Primary hyperparathyroidism 36704847 E21.0 Hypercalcemia 46595942 E 83.52 Intracrani al meningioma 359423522 D32.0 History of malignant neoplasm of breast 157310191 Z85.3 History of total thyroidectomy 1463641433 02046 Z90.89 - Benign disease [id number] ANCELMO LEE MD [place] [facility] [address] [place] [address] 07/28/2023 15:54:41 07/29/2023 07:57:25 Primary hyperparathyroidism 07987793 E21.0 Elevated PTH and ionized calciumNM parathyroi d nuclear imaging (07/21/23) = Parathyroi d adenoma on the right side is suspected. There is unusual mediastina l activity. Neck ultrasound and 40 CT also performed Intracrani al meningioma 527698171 D32.0 History of malignant neoplasm of breast 293659494 Z85.3 History of total thyroidectomy 8597843666 15790 Z90.89 - Benign disease 2012 Dr. Gibson Lee Mediastinal mass 5378363 1 R22.2 Could be persistent thymus, residual thyroid tissue, or a benign parathyroi d gland [id number] JASWINDER CARVER APRN ENDOCRINO [address] [place] [address] 08/10/2023 13:58:06 08/10/2023 15:04:44 Primary hyperparathyroidism 40756560 E21.0 -Reviewed and discussed last lab from [...] and creatinine . f/u in 4 months [id number] JASWINDER CARVER APRN ENDOCRINO [facility] [address] [place] [address] 12/09/2023 13:07:51 12/09/2023 14:46:15 Primary hyperparathyroidism 12485469 E21.0 -Reviewed and discussed last lab from [...] Dr Lee about surgeryf/u in 6 months [id number] MD DEE ALEXANDRA RD [address] [place] [address] 01/21/2024 14:39:38 01/21/2024 15:45:28 Primary hyperparathyroidism 03113386 E21.0 Elevated PTH and ionized calciumNM parathyroi d nuclear imaging (07/21/23) = Parathyroi d adenoma on the right side is suspected. There is unusual mediastina l activity. Neck ultrasound and 40 CT also performed Mediastinal mass 2349817 1 R22.2 Could be persistent thymus, residual thyroid tissue, or a benign parathyroi d gland Intracrani al meningioma 316062766 D32.0 History of malignant neoplasm of breast 046974707 Z85.3 History of total thyroidectomy 0754417586 37085 Z90.89 - Benign disease 2012 Dr. Gibson Lee [id number] ANCELMO LEE MD SURGERY SCHEDULE [address] [place] [address] 03/02/2024 11:12:59 03/02/2024 11:13:47 Postoperative pain 617748266 G89.18 [id number] MD DEE ALEXANDRA RD [address] [place] [address] 03/03/2024 13:14:05 03/03/2024 13:51:34 Primary hyperparathyroidism 30782977 E21.0 Elevated PTH and ionized calciumNM parathyroi d nuclear imaging (07/21/23) = Parathyroi d adenoma on the right side is suspected. There is unusual mediastina l activity. Neck ultrasound and 40 CT also performed 03/02/24 - bilateral neck exploratio n For parathyroi d adenoma Intracrani al meningioma 014272080 D32.0 History of malignant neoplasm of breast 705329289 Z85.3 History of total thyroidectomy 5449184600 67992 Z90.89 - Benign disease 2012 Dr. Gibson Lee Postoperative visit 1836 00872 Z48.89 03/02/24 - bilateral neck exploratio n For parathyroi d adenoma [id number] ANCELMO LEE MD [place] [facility] [address] [place] [address] 07/07/2024 13:06:11 07/07/2024 14:54:27 Primary hyperparathyroidism 12386699 E21.0 Persistent ly elevated PTH and ionized calciumNM parathyroi d nuclear imaging (07/21/23) = Parathyroi d adenoma on the right side is suspected. There is unusual mediastina l activity. Neck ultrasound and 40 CT also performed 03/02/24 - bilateral neck exploratio n For parathyroi d adenoma Postoperative visit 1836 14649 Z48.89 03/02/24 - bilateral neck exploratio n For parathyroi d adenoma Intracrani al meningioma 509916301 D32.0 History of malignant neoplasm of breast 958712154 Z85.3 History of total thyroidectomy 3529009865 63598 Z90.89 - Benign disease 2012 Dr. Gibson Lee [id number] BERE BANERJEE MD [facility] [address] [place] [address] 07/19/2024 12:10:35 07/19/2024 12:43:57 Pre-surgery testing 985527776 Z01.89 [id number] HECTOR DASILVA MD GENERAL SURGERY [address] [place] [address] 02/23/2025 11:14:54 02/28/2025 09:54:59 Left upper quadrant pain 993175531 R10.12 [id number] 69-year-ol d female seen for evaluation with concern for abdominal pain. Reportedly history of cholelithi asis. Evidently this was on outside facility imaging she is uncertain from where or when. Notes more LUQ pain. Denies associatio n with foods. Will plan for RUQ US to update imaging and eval the lennie friedman. May consider CT as well given she has not LUQ pain. [id number] HECTOR DASILVA MD GENERAL SURGERY [address] [place] [address] 03/23/2025 13:30:49 03/27/2025 10:11:55 Left upper quadrant pain 270087420 R10.12 [id number] 69-year-ol d female seen for evaluation with [...] Would plan for surveillan ce for now. [id number] ANGEL TORRES APRN [facility] [address] [facility] [place] [address] 03/31/2025 09:56:30 03/31/2025 10:54:15 Renal mass 179060888 N28.89 [id number] If the lesion is deemed benign, periodic imaging may be recommende d to monitor for any changes. Urinary incontinence 165 180971 R32 [id number] The urinary incontinen ce was acknowledg ed, but specific management strategies were not detailed during the visit. Cyst of pancreas 3652859 0 K86.2 69256 Health Concerns Section Related Observation LastModified by Organization Detai ls LastModified Time None Recorded Concern Status LastModified by Organization Details LastModified Time None Recorded Advance Directives Directive None Recorded Payers Insurance Date Sequence Insurance Name Policy Number Policy Haley Covered Member ID Haley Member ID Guarantor Name 07/10/2024 2 UNSPECIFIED REMIT PAYOR Justino Hess 03/07/2025 1 [place] Justino Hess [id number] Justino Hess 04/27/2025 2 [employer] (MEDICARE SUPPLEMENT) Justino Hess [id number] Justino Hess Notes Date Note Type Note Provider Name and Address Organization Details Recorded Time 4 text/html ROS as noted in the [facility] Justino is here to follow up on her bilateral neck exploration for parathyroid adenoma performed on 03/02/24 with lab results. An abnormal parathyroid gland was identified from the biopsy on the left side of her neck - pathology came back as mildly hypercellular parathyroid tissue. Her PTH on 03/02/24 was high. Her PTH and Calcium tested on 03/04/24 at [facility] was also elevated.Imaging of her mediastinum revealed a 2.9 cm enhancing lesion on her scan from last year. ANCELMO LEE MD [address] [place] [address], [address], [facility] 07/07/2024 18:38:11 5 text/html ROS as noted in the [facility] 69-year-old female referred for evaluation with concern [...] question of a bulge. HECTOR DASILVA MD [address] [place] [address], [address], [facility] 02/23/2025 11:55:39 5 text/html ROS as noted in the [facility] 69-year-old female referred for evaluation with concern [...] 1.6 cm IPMN HECTOR DASILVA MD [address] [place], [address], [facility] 03/23/2025 13:54:49 text/html 69-year-old female presenting [...] never been a smoker. ANGEL TORRES, MICAELA [address] [place], [address], [facility] 03/31/2025 15:20:35 OBGyn Episode No OBEpisode recorded.
== END 2025-07-05 23:59 ==
LOC: LAB.DROPOF 07-06 09:47
PROVIDERS: PCP Internal Medicine; Visit Provider Internal Medicine
DX: E21.3 Hyperparathyroidism, unspecified (principal); E11.9 Type 2 diabetes mellitus without complications; E78.5 Hyperlipidemia, unspecified; E03.9 Hypothyroidism, unspecified; K86.9 Disease of pancreas, unspecified
CPT/HCPCS: 80053; 80061; 82043; 82570; 83036; 83970; 84443; 85025